=== PATIENT | female | born 1955 | race Caucasian/White ===

== ENCOUNTER → 2021-09-04 | Outpatient (CLI) | payer MEDICARE ==
--- NOTE | 2021-09-10 15:38 | MM ---
Reason for Exam: Additional evaluation requested from prior study. Last mammogram was performed 2 year(s) and 0 month(s) ago. Patient History: Menarche at age 15. Patient has no children. Postmenopausal. 12/12/2019, Benign Mammogram-Guided Core Biopsy on the left side. Risk Values: Frances 5 year model risk: 2.0%. NCI Lifetime model risk: 7.2%. Prior Study Comparison: 08/28/2018 Bilateral MG screening mammo w CAD - 2, Unknown. 11/14/2019 Bilateral MG 3D screening mammo w/cad, [facility]. 12/12/2019 Left MG diagnostic mammo LT wo CAD., [facility]. 06/20/2020 Left MG 3D diag mammo w/cad LT, [facility]. Tissue Density: The breast tissue is heterogeneously dense. This may lower the sensitivity of mammography. Findings: Analyzed By CAD. Scattered benign-appearing round calcifications bilaterally are redemonstrated. Biopsy clip in the left breast is again seen. Overall Assessment: Benign, BI-RAD 2 Management: Screening Mammogram of both breasts in 1 year. A clinical breast exam by your physician is recommended on an annual basis and results should be correlated with mammographic findings. This exam should not preclude additional follow-up of suspicious palpable abnormalities. Electronically signed and approved by: Ethan Lubin M.D. Radiologis
== END | disposition home or self-care (01) ==
LOC: RADMAMWWP 10:37
PROVIDERS: ATTEND Family Medicine
DX: R92.1 Mammographic calcification found on diagnostic imaging of breast (principal); Z78.0 Asymptomatic menopausal state
CPT/HCPCS: 77066; G0279; 77062

== ENCOUNTER → 2022-07-15 | Outpatient (CLI) | payer MEDICARE ==
--- NOTE | 2022-07-15 11:30 | CTL ---
"EXAMINATION TYPE: CT Low Dose Lung DATE OF EXAM ORDERED: 07/15/2022 COMPARISON: None HISTORY: . Low Dose CT Lung Screening CT DLP: 103.[address] CTDI: 2.9 mGy IV CONTRAST USED: None. SCREENING VISIT: First visit COMPARISON: None. TECHNIQUE: Low dose computed tomography scan was performed through the chest at 1 millimeter thick se ctions and reconstructed images in the coronal plane at [address] DIAGNOSTIC QUALITY: Satisfactory FINDINGS: LUNG NODULES: There is a right suprahilar partially spiculated mass present measuring 4.2 cm AP by 3. 1 cm transverse by 3.7 cm craniocaudal. This is felt to reflect malignancy until proven otherwise. Ri ght upper lobe bronchus is narrowed but patent. No additional nodules or masses present. No effusion or consolidative process. Since for volume loss. LUNGS: COPD: Severity: Mild Fibrosis: Severity:None Lymph nodes: Precarinal adenopathy measuring 1.5 cm short axis. 1 cm right hilar lymph node. Calcifie d right hilar lymph node noted as well. Other findings: None RIGHT PLEURAL SPACE: Effusion: None Calcification: None Thickening: None Pneumothorax: None LEFT PLEURAL SPACE: Effusion: None Calcification: None Thickening: None Pneumothorax: None HEART: Heart Size: Mildly enlarged Coronary calcification: Mild Pericardial effusion: None OTHER FINDINGS: Upper abdomen: No significant abnormality Bony thorax: Degenerative changes Supraclavicular region: No significant abnormalityOther: No significant abnormalityI IMPRESSION: 1. Spiculated right suprahilar mass felt to reflect malignancy until proven otherwise. Enlarged preca rinal lymph node. FOLLOW UP CT CHEST RECOMMENDATION: Immediate physician follow up. Correlate with tissue diagnosis. CT LUNG RAD: LUNG RAD CATEGORY 4x very suspicious A [place] level critical message alert has been initiated for Wander Cedillo MD via the [employer] 36 0 | Critical Results System on 07/15/2022 11:28 AM. This message alert has been sent to Wander Cedillo MD via the preferences provided by the clinician for the receipt of Radiology Critical Findings. [facility] ID [id number]."
== END | disposition home or self-care (01) ==
LOC: RADCTMAIN 10:46
PROVIDERS: ATTEND Internal Medicine Hematology & Oncology
DX: Z12.2 Encounter for screening for malignant neoplasm of respiratory organs (principal); F17.210 Nicotine dependence, cigarettes, uncomplicated; R91.8 Other nonspecific abnormal finding of lung field; R59.0 Localized enlarged lymph nodes
CPT/HCPCS: 71271

== ENCOUNTER → 2022-07-24 | Outpatient (CLI) | payer MEDICARE ==
--- NOTE | 2022-07-26 08:18 | PE ---
EXAMINATION TYPE: PET CT fusion skull to thigh DATE OF EXAM: 07/24/2022 COMPARISON: Low-dose lung screening CT July 15, 2022 HISTORY: Recent abnormal CT. Waldenstrom's macroglobulinemia or lymphoma per patient. TECHNIQUE: Following the intravenous administration of 10.6 mCi of F-18 FDG, whole body images are p erformed from the skull base to the midthigh. Images are reviewed on the computer in the coronal, ax ial, and sagittal planes. Reconstructed rotating images are created on independent workstation and r eviewed on the computer. A localization and attenuation correction CT is performed in conjunction w ith the PET scan. Blood glucose level equals 1:30 SCAN: Initial Scan FINDINGS: Mean SUV mediastinum: 0.91 Mean SUV liver: 2.03 SKULL BASE AND NECK: No areas of abnormal hypermetabolic uptake. CHEST, MEDIASTINUM, AND HILAR REGION: Mild underlying emphysematous change is redemonstrated. Persist ent spiculated anterior right hilar mass measuring 4.1 x 2.8 cm axial image 93, max SUV is 7.24. Abnormal hypermetabolic 2.0 x 1.2 cm paracarinal lymph node axial image 93, max SUV is 5.01. No additional areas of abnormal hypermetabolic uptake. ABDOMEN AND PELVIS: No hypermetabolic adrenal masses. Nonspecific bowel uptake. Normal excretion. No definitive suspicious abnormal hypermetabolic uptake. OSSEOUS STRUCTURES: No areas of abnormal hypermetabolic uptake. OTHER CT: There is right subclavian Mediport catheter terminating in SVC redemonstrated. Moderate francis cified plaque bilateral carotid bulb level is seen. Moderate to severe three-vessel coronary artery c alcification redemonstrated. Evidence of old granulomatous disease with calcified right hilar lymph n ode is noted. Uterus is surgically absent. Small fat-containing bilateral inguinal hernias. Scoliosis in the spine is again seen. IMPRESSION: Abnormal hypermetabolic uptake in the 4.1 cm anterior right midlung mass consistent with neoplasm with suspected paracarinal adenopathy. No distal metastatic disease.
== END | disposition home or self-care (01) ==
LOC: RADPETMAIN 14:36
PROVIDERS: ATTEND Internal Medicine Hematology & Oncology
DX: C88.0 Waldenstrom macroglobulinemia (principal); R91.8 Other nonspecific abnormal finding of lung field
CPT/HCPCS: 78815; A9552

== ENCOUNTER 2022-08-05 12:52 | Day surgery (SDC) | payer MEDICARE ==
[~2022-08-05 12:52] MED LIST: LACTATED RINGERS 1,000 ML IV SCH
[2022-08-05 13:47] VITALS: TEMP 97.2
[2022-08-05 13:59] LABS: Glucose,Whole Blood 127 mg/dL (70-110)
[2022-08-05] MEDS ORDERED: DEXAMETHASONE SOD PHOSPHATE 4 MG/ML 1 ML VIAL IVP ONE (14:01)
[2022-08-05] MEDS ORDERED: ONDANSETRON 4 MG/2 ML VIAL IVP ONE (14:01)
[2022-08-05] MEDS ORDERED: ONDANSETRON 4 MG/2 ML VIAL ONE (14:01)
--- NOTE | 2022-08-05 14:13 | CT ---
EXAMINATION TYPE: CT chest wo con DATE OF EXAM: 08/05/2022 COMPARISON: 07/15/22 HISTORY: pre-op bronch CT DLP: [address] of the chest was performed with lung and mediastinal window settings submitted. The la ck of contrast limits evaluation of the vascular, mediastinal and parenchymal structures including th e upper abdomen. LUNGS: Again noted is right suprahilar spiculated mass currently measuring 4.0 x 3.4 x 2.9 cm. No add itional nodules are identified. There is no evidence of pleural effusion or volume loss. MEDIASTINUM/ULI: Thoracic aorta is of normal caliber with limited evaluation given lack of contrast . The heart is not enlarged. No evidence for mediastinal mass. Enlarged right tracheal bronchial ad enopathy measuring 1.5 cm. Additional right paratracheal lymph node measuring 1.2 cm. Calcified right hilar lymph nodes seen. UPPER ABDOMEN: No significant abnormality is seen. OTHER: No significant other abnormality. IMPRESSION: 1. Spiculated mass right suprahilar region with mediastinal adenopathy.
[2022-08-05] MEDS ORDERED: MIDAZOLAM 2 MG/2 ML VIAL ONE (14:41)
[2022-08-05] MEDS ORDERED: SUGAMMADEX SODIUM 200 MG/2 ML SDV IV ONE (14:41)
[2022-08-05] MEDS ORDERED: fentaNYL (PF) 50 MCG/ML 2 ML AMP ONE (14:41)
[2022-08-05] MEDS ORDERED: PHENYLEPHRINE-0.9% NACL SYG 1,000 MCG/10 ML SYRINGE ONE (14:41)
[2022-08-05] MEDS ORDERED: ROCURONIUM 10 MG/ML (5 ML VIAL) IV ONE (14:41)
[2022-08-05] MEDS ORDERED: GLYCOPYRROLATE 0.2 MG/ML 2 ML VIAL ONE (14:41)
[2022-08-05] MEDS ORDERED: NEOSTIGMINE 1 MG/ML 10 ML VIAL ONE (14:41)
[2022-08-05] MEDS ORDERED: SUCCINYLCHOLINE CHLORIDE 200 MG/10 ML VIAL IV ONE (14:41)
[2022-08-05] MEDS ORDERED: LIDOCAINE 2% INJ 20 MG/ML (2 ML VIAL) ONE (14:41)
[2022-08-05] MEDS ORDERED: PROPOFOL 10 MG/ML 20 ML VIAL IV ONE (14:41)
[2022-08-05] MEDS ORDERED: ePHEDrine 50 MG/ML 1 ML VIAL ONE (14:41)
--- NOTE | 2022-08-05 16:43 | P.PCN ---
Date of Procedure: 08/05/22 Operative Findings: Preoperative Diagnosis: Right upper lobe mass Mediastinal lymphadenopathy Postoperative Diagnosis: Right upper lobe mass Mediastinal lymphadenopathy Procedure(s) Performed: Flexible bronchoscopy Robotic-assisted bronchoscopy and addition to radial ultrasound evaluation of the lung mass Robotic-assisted test monitor needle aspirate, transbronchial biopsies, transbronchial brushing of the right upper lobe mass in addition to a bronchioloalveolar lavage Endobronchial ultrasound Endobronchial ultrasound-guided transbronchial needle aspirate of station 4R - anterior tracheal lymph nodes Anesthesia: MARAHA Surgeon: Lisa Mcclure Estimated Blood Loss (ml): 0 Pathology: other Condition: stable Disposition: same day Operative Findings: A physical exam was performed. Informed consent was obtained from the patient after explaining all the risks (pneumothorax, life threatening bleeding, infection and adverse effects due to medications), benefits and alternatives to the procedure which the patient appeared to understand and so stated. The patient was connected to the monitoring devices. General anesthesia was induced and the patient was intubated by anesthesia. A final timeout was performed and the procedure confirmed by the attending staff bronchoscopist. The bronchoscope was inserted and the airway examined. The flexible bronchoscope was removed and the robotic bronchoscope was inserted. Registration was completed. I next guided the robotic bronchoscope using the navigation system into the right upper lobe anterior and apical segment. Once in proper position, the bronchoscope was frozen. The radial EBUS probe was placed through the bronchoscope and confirmed abnormal u/s images vs normal lung. A needle was placed through the working channel and under fluoroscopic guidance, we sampled the area thought to have the mass twice. We then used a cloud biopsy pattern with ultrasound confirmation for 6 additional passes with the needle. U/S evaluation was then used to reconfirm location. Forceps were next introduced through working channel and extended the appropriate distance and 3-4 transbronchial biopsies were performed using fluoroscopic guidance. The u/s probe was then reinserted to confirm location. When confirmed this process was repeated for a total of 3-4 transbronchial biopsies. After reassessment with EBUS, a brush was placed through the extendable working channel for 1 pass with fluoroscopic guidance. U/S evaluation was then used to confirm location. 40ml of saline was then instilled into the area of the lesion. The robotic bronchoscope was removed and the airway inspected with a flexible bronchoscope and 10 ml of effluent from the BAL was collected. The flexible bronchoscope was removed and the EBUS-TBNA bronchoscope was used to intubate the pateint through the ETT. An ultrasound examination identified all major landmarks was completed.. The EBUS-TBNA scope was used to evaluate station 4R /anterior tracheal lymph node. The lymph node was identified via ultrasound and the shortest diameter was measured to be 11 x 15 mm. The corresponding available CT scan measurement was compared to EBUS image. The needle was then inserted and 4 passes were taken under direct ultrasonographic visualization. Each pass was maintained with good suction. The patient was then extubated with the EBUS-TBNA bronchoscope and intubated with an Olympus IT bronchoscope without difficutly. The airways were inspected and cleared of secretions and blood. Fluoroscopic check for pneumothorax was negative upon completion of the procedure. There was 0 ml blood loss with the procedure. FINDINGS: 1.The airways appeared normal 2 Successful navigation, ultrasonographic identification, and biopsies of right lower lobe mass 3.The EBUS view was (Concentric/Eccentric)}. - Stations sampled: 4R /anterior tracheal RECOMMENDATIONS: Await pathology and cytology results The referring physician will be alerted to the results when available. The patient was advised to follow up with the referring physician with the biopsy results Patient will be called with results.
[2022-08-05] MEDS ORDERED: LIDOCAINE 2% SYG (PF) 100 MG/5 ML MISCELLANE ONE (16:50)
[2022-08-05] MEDS ORDERED: ALBUTEROL NEBULIZED 2.5 MG/3 ML INHALATION ONE (16:50)
[2022-08-05 17:38] VITALS: RESP 16
[2022-08-05 18:27] VITALS: BP 100/64; PULSE 78
--- NOTE | 2022-08-06 05:05 | XR ---
EXAMINATION TYPE: XR chest 1V DATE OF EXAM: 08/05/2022 COMPARISON: Chest CT earlier today HISTORY: Post bronchoscopy and biopsy. TECHNIQUE: Single AP portable frontal upright view of the chest is obtained. FINDINGS: Right subclavian Mediport catheter is redemonstrated. There is background mild chronic emp hysematous change with right suprahilar spiculated 4.1 cm mass redemonstrated. No pneumothorax seen a fter bronchoscopy and biopsy. The cardiac silhouette size is mildly enlarged. The osseous structur es are intact. IMPRESSION: As above.
--- NOTE | 2022-08-06 06:16 | FL ---
EXAMINATION TYPE: FL bronchoscopy DATE OF EXAM: 08/05/2022 CLINICAL HISTORY: Right lung mass TECHNIQUE: Fluoroscopy. COMPARISON: None. FINDINGS: Fluoroscopic guidance was provided during bronchoscopy with sampling procedure performed bobby Mcclure. A total of 8 minutes 8 seconds of fluoroscopic time was utilized during the procedur e and four spot images was acquired. Total dose area product (DAP) in uGy*m?, mGy*cm? (or similar: 3 2.86. IMPRESSION: As Above.
== END 2022-08-05 18:57 | disposition home or self-care (01) ==
LOC: ORWHC2ENDO 12:52
PROVIDERS: ATTEND Internal Medicine Critical Care Medicine
DX: C34.11 Malignant neoplasm of upper lobe, right bronchus or lung (principal); I10 Essential (primary) hypertension; E78.5 Hyperlipidemia, unspecified; I48.91 Unspecified atrial fibrillation; E11.9 Type 2 diabetes mellitus without complications; Z79.899 Other long term (current) drug therapy; Z79.84 Long term (current) use of oral hypoglycemic drugs; Z79.01 Long term (current) use of anticoagulants
CPT/HCPCS: 88108; 88305; 71045; 71250; 31629; 31625; 31624; 31652; J2250; J0330; J1100; J2710; J2405; J2001 ×2; J3010; J2370; J2704

== ENCOUNTER → 2022-08-28 | Outpatient (CLI) | payer MEDICARE ==
--- NOTE | 2022-08-29 06:32 | MR ---
EXAMINATION TYPE: MR brain wo/w con DATE OF EXAM: 08/28/2022 COMPARISON: NONE HISTORY: Hx of Bone and newly diagnosed lung cancer upper lobe. TECHNIQUE: Multiplanar, multisequence images of the brain and brainstem is performed without and with IV contras t, utilizing 8 mL intravenous Gadavist . FINDINGS: Diffusion weighted images demonstrate no evidence of a recent infarct or other diffusion ab normality. Mild ventricular and sulcal prominence. There are scattered foci of T2 hyperintensity seen throughout the white matter bilaterally. Approximately 60-80 scattered lesions are seen. Lesions are nonspecific in appearance and distribution. Midline structures demonstrate normal morphology. The craniocervical junction appears within normal limits. Post contrast images demonstrate no suspicious enhancing intraparenchymal masses. Right-side d vascular anomaly axial images 25 through 29 is present. This is best seen on T2 Star weighted imagi ng. Possible AVM. The dural venous sinuses appear patent. The visualized sinuses are clear and the gl obes are intact. Increased fluid signal bilateral mastoid air cells. IMPRESSION: 1. No abnormal enhancing intraparenchymal mass to suggest metastatic disease to the brain. 2. Background mild diffuse cerebral atrophy and moderate chronic small vessel ischemic change. Right- sided vascular anomaly possibly AVM. 3. Increased fluid signal bilateral mastoid air cells raises concern for bilateral mastoiditis, corre late clinically.
== END | disposition home or self-care (01) ==
LOC: RADMRIMAIN 14:23
PROVIDERS: ATTEND Radiology Radiation Oncology
DX: C34.11 Malignant neoplasm of upper lobe, right bronchus or lung (principal); G93.89 Other specified disorders of brain; I67.82 Cerebral ischemia
CPT/HCPCS: 70553; A9585

== ENCOUNTER → 2022-09-14 | Outpatient (CLI) | payer MEDICARE ==
--- NOTE | 2022-09-14 18:56 | MR ---
EXAMINATION TYPE: MR angio neck wo/w con DATE OF EXAM: 09/14/2022 6:21 PM CLINICAL INDICATION:Female, 67 years old with history of C34.11; Follow-up to MRI Brain 08-28-2022 COMPARISON: Brain MRI 08/28/2022. TECHNIQUE: Multiplanar, multi-sequence imaging as well as [id number] and phase contrast imaging w as performed extracranial vasculature of the neck. 2-D and 3-D [id number]-[id number] imaging. 3-D reformatte d images and maximum intensity projection reformatted images were submitted for evaluation. IV Contrast: 8 cc Gadavist FINDINGS: Extensive motion artifact limits evaluation. RIGHT CAROTID SYSTEM: The common carotid artery is patent. The carotid bifurcations that she no evide nce for hemodynamically significant stenosis. The internal carotid arteries patent. LEFT CAROTID SYSTEM: The common carotid artery is patent. The carotid bifurcations that she no evide nce for hemodynamically significant stenosis. The internal carotid arteries patent. The origins of the great vessels and vertebral arteries appear unremarkable. The vertebral arteries are codominant. IMPRESSIONS: 1. No evidence of significant stenosis at the carotid bifurcations. The carotid and vertebral arterie s are patent. 2. No evidence aneurysm.
== END | disposition home or self-care (01) ==
LOC: RADMRIMAIN 16:51
PROVIDERS: ATTEND Radiology Radiation Oncology
DX: C34.11 Malignant neoplasm of upper lobe, right bronchus or lung (principal)
CPT/HCPCS: 70549; A9585

== ENCOUNTER → 2022-11-12 | Outpatient (CLI) | payer MEDICARE ==
[2022-11-12 10:20] LABS: African American GFR (CKD) 71 (>60 ml/min/1.73 sqM); Blood Urea Nitrogen 16 mg/dL (7-17); Non-African American GFR(CKD) 61 (>60 ml/min/1.73 sqM)
--- NOTE | 2022-11-12 13:16 | CT ---
EXAMINATION TYPE: CT chest w con DATE OF EXAM: 11/12/2022 COMPARISON: 08/05/2022, 07/24/2022 at scan HISTORY: Malignant neoplasm of upper lobe, right bronchus or lung CT DLP: 287.2 mGycm Automated exposure control for dose reduction was used. TECHNIQUE: CT scan of the chest is performed with IV Contrast, patient injected with 100 ml mL of Isovue 300. M IP Images are created on CT scanner and reviewed. 3D reconstructed images are created on an [employer] workstation and reviewed. FINDINGS: LUNGS: There is a right upper lobe mass measuring 3.7 x 3.3 x 2.6 cm and previously measuring 4 x 3.4 x 2.9 cm. There is a 2 mm subpleural right lower lobe pulmonary nodule too small to characterize axial image 46 . Retrospectively stable. There is apical pleural thickening. Mild emphysematous changes. No new sizable pulmonary nodules. No consolidative pneumonia. No overt failure. MEDIASTINUM: The heart is enlarged. Atherosclerotic change of aorta appears normal caliber. There is pathologic adenopathy in the pretracheal space measuring 1.5 x 2.2 x 6 cm and previously measured 1. 2 x 2.1 cm. There is a Mediport catheter. Small pericardial effusion. Coronary artery calcifications are OTHER: Multilevel hypertrophic and degenerative changes spine. Small hiatal hernia. A sub-5 mm right thyroid nodule too small to characterize. Indeterminate upper pole left renal lesion measuring 4 mm stable prior PET scan. May represent hemorrhagic or proteinaceous cyst given its was hyperdense on no ncontrast head CT. There is a tiny gallstone. Nonobstructing 3 mm lower pole left renal calculus. IMPRESSION: 1. Right upper lobe mass measures 3.7 x 3.3 x 3.1 centimeters and previously measured 4 x 3.4 x 2.9 c m. 2. Pathologic pretracheal adenopathy measures 1.5 x 2.2 x 2.6 and previously measured 1.2 x 2.1 cm. 3. No new areas of pathologic adenopathy or pulmonary mass. 4. Small pericardial effusion. 5. Small hiatal hernia with mild distal wall esophageal thickening correlate for reflux esophagitis. 6. Tiny gallstone. 7. There is a too small to characterize upper pole hyperdense left renal lesion. Recommend continued monitoring. Post likely Bosniak classification 2 high proteinaceous or hemorrhagic cyst. 8. Nonobstructing 3 mm lower pole left renal calculus.
== END | disposition home or self-care (01) ==
LOC: RADCTMAIN 09:37
PROVIDERS: ATTEND Internal Medicine Hematology & Oncology
DX: C34.11 Malignant neoplasm of upper lobe, right bronchus or lung (principal); C88.0 Waldenstrom macroglobulinemia; E11.9 Type 2 diabetes mellitus without complications; N20.0 Calculus of kidney; I31.39 Other pericardial effusion (noninflammatory); K44.9 Diaphragmatic hernia without obstruction or gangrene; K80.20 Calculus of gallbladder without cholecystitis without obstruction; Z71.3 Dietary counseling and surveillance
CPT/HCPCS: 82565; 84520; 71260; 36415; Q9967

== ENCOUNTER → 2022-12-14 | Outpatient (CLI) | payer MEDICARE ==
--- NOTE | 2022-12-15 08:35 | MM ---
Reason for Exam: Screening (asymptomatic). Last mammogram was performed 1 year(s) and 4 month(s) ago. Patient History: Menarche at age 15. Patient has no children. Postmenopausal. 12/12/2019, Benign Mammogram-Guided Core Biopsy on the left side. Risk Values: Frances 5 year model risk: 2.0%. NCI Lifetime model risk: 6.9%. Prior Study Comparison: 12/12/2019 Left MG diagnostic mammo LT wo CAD., [facility]. 06/20/2020 Left MG 3D diag mammo w/cad LT, [facility]. 09/04/2021 Bilateral MG 3D diag mammo w/cad SEAN, [facility]. Tissue Density: The breast tissue is heterogeneously dense. This may lower the sensitivity of mammography. Findings: Analyzed By CAD. There is no suspicious group of microcalcifications or new suspicious mass in either breast. Benign calcifications within both breasts. Biopsy clip within the left breast. Overall Assessment: Benign, BI-RAD 2 Management: Screening Mammogram of both breasts in 1 year. A clinical breast exam by your physician is recommended on an annual basis and results should be correlated with mammographic findings. Note on Frances scores and lifetime risk: 1. A Frances score greater than 3% is considered moderate risk. If this is the case, consider specialist referral to assess eligibility for a risk reducing agent. If overall lifetime risk for the development of breast cancer is 20% or higher, the patient may qualify for future screening with alternating mammogram and breast MRI. Electronically signed and approved by: Richmond Mcintosh D.O.
== END | disposition home or self-care (01) ==
LOC: RADMAMWWP 07:42
PROVIDERS: ATTEND Internal Medicine Hematology & Oncology
DX: Z12.31 Encounter for screening mammogram for malignant neoplasm of breast (principal); Z78.0 Asymptomatic menopausal state
CPT/HCPCS: 77063; 77067

== ENCOUNTER → 2022-12-20 | Outpatient (CLI) | payer MEDICARE ==
--- NOTE | 2022-12-20 08:07 | US ---
EXAMINATION TYPE: US thyroid st tissue head/neck DATE OF EXAM: 12/20/2022 COMPARISON: NONE CLINICAL INDICATION: Female, 67 years old with history of C34.11 lung ca, R94.6 abn labs; abn labs GLAND SIZE: Right Lobe: 4.7 x 1.3 x 2.2 cm Overall Parenchyma: homogenous Left Lobe: 4.0 x 1.5 x 2.1 cm Overall Parenchyma: homogeneous Isthmus Thickness: 0.3 cm NODULES RIGHT: # of nodules measured on right: multiple subcentimeter, measured largest 1. 0.6 X 0.8 x 0.5 cm, lower , cystic or almost completely cystic, anechoic nodule, which is wider than tall, with smooth margins, without echogenic foci. Prior size: SALES DEMONSTRATOR ISTHMUS: # of nodules measured in the isthmus: 0 Bilateral neck scanned, no evidence of lymphadenopathy. IMPRESSION: Nonspecific subcentimeter nodularity.
== END | disposition home or self-care (01) ==
LOC: RADUSWWP 07:24
PROVIDERS: ATTEND Internal Medicine Hematology & Oncology
DX: C34.11 Malignant neoplasm of upper lobe, right bronchus or lung (principal); R94.6 Abnormal results of thyroid function studies
CPT/HCPCS: 76536

== ENCOUNTER → 2023-02-04 | Outpatient (CLI) | payer MEDICARE ==
--- NOTE | 2023-02-04 10:27 | MR ---
EXAMINATION TYPE: MR angio head wo con DATE OF EXAM: 02/04/2023 10:15 AM CLINICAL INDICATION:Female, 67 years old with history of C34.11,C77.1; PHH, Hx bone and lung cancer, Evaluate for AVM, Abnormal MRI September 2022 COMPARISON: 09/14/2022. MRI 08/28/2022. Technical: 3-D [id number] Axial with MIP reconstruction created on a separate workstation.. IV Contrast: None Findings: Vertebral arteries: The vertebral arteries are patent. Vertebral arteries are: Codominant. Basilar artery: The basilar artery is intact. The basilar artery bifurcation is normal. Internal Carotid arteries: The cervical, petrous, cavernous and supraclinoid segments are normal. INOCENCIO: Patent with no evidence of aneurysm. ACOM: Present without evidence of aneurysm. MCA: Patent with no evidence of aneurysm. 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 PCOM: Hypoplastic left normal right. Developmental venous anomaly seen on susceptibility weighted imaging on 08/28/2022 has normal arterial phase vessel leading to this region. IMPRESSION: 1. No evidence of aneurysm or significant stenosis. 2. Prior MRI brain does demonstrate evidence for developmental venous anomaly within the right front al lobe near the basal ganglia. No finding on today's exam correlates with the finding likely due to phase of contrast.
== END | disposition home or self-care (01) ==
LOC: RADMRIMAIN 09:20
PROVIDERS: ATTEND Radiology Radiation Oncology
DX: C77.1 Secondary and unspecified malignant neoplasm of intrathoracic lymph nodes (principal); C34.11 Malignant neoplasm of upper lobe, right bronchus or lung
CPT/HCPCS: 70544

== ENCOUNTER → 2023-02-18 | Outpatient (CLI) | payer MEDICARE ==
--- NOTE | 2023-02-19 09:29 | PE ---
EXAMINATION TYPE: PET CT fusion skull to thigh DATE OF EXAM: 02/18/2023 CLINICAL INDICATION:Female, 67 years old with history of C34.11 LUNG CANCER; TECHNIQUE: Following the intravenous administration of 11.58 mCi of F-18 FDG, whole body images are performed from the skull base to the midthigh. Images are reviewed on the computer in the coronal, axial, and sagittal planes. Reconstructed rotating images are created on independent workstation and reviewed on the computer. A non-contrast CT is performed in conjunction with the PET scan. Glucose level 98 mg/dL CT DLP: 437 mGycm, Automated exposure control for dose reduction was used. COMPARISON: CT 11/12/2022, PET/CT 07/24/2022, FINDINGS: Mediastinal SUV mean is 1.5. Hepatic parenchyma SUV mean is 1.8. SKULL BASE AND NECK: No suspicious radiotracer activity. CHEST, MEDIASTINUM, AND HILAR REGION: * Right anterior midlung mass now measuring 3.3 x 2.2 cm. Max SUV 9.8, previously 7.2. FDG activity is patchy and along the periphery predominantly on today's exam. * Right low paratracheal lymph node max SUV 6.4, previously 5.0 measuring 14 mm in short axis which may be minimally increased in volume. * Prevascular space lymph nodes with increased metabolic activity max SUV 8.1 measuring 8 mm and mor e right lateral max SUV 10.6 measuring 8 mm. * New Right upper lung pulmonary nodule Max SUV 1.6 measuring 5 mm. ABDOMEN AND PELVIS: No suspicious radiotracer activity. MUSCULOSKELETAL STRUCTURES: No suspicious radiotracer activity. OTHER CT: There is right subclavian Mediport catheter terminating in SVC redemonstrated. Moderate francis cified plaque bilateral carotid bulb level is seen. Moderate to severe three-vessel coronary artery c alcification redemonstrated. Evidence of old granulomatous disease with calcified right hilar lymph n ode is noted. Uterus is surgically absent. Small fat-containing bilateral inguinal hernias. Scoliosis in the spine is again seen. IMPRESSION: Progression of disease increasing FDG activity of the right upper lung mass now demonstrating patchy FDG uptake that was more solid and uniform previously. The metastatic lymph node remains present and may be minimally increased in volume compared to prior. The FDG activity within the mediastinal lymph node has also increased. There are new prevascular space lymph nodes with increased metabolic activi ty as well as a new FDG avid right upper lung pulmonary nodule.
== END | disposition home or self-care (01) ==
LOC: RADPETMAIN 10:54
PROVIDERS: ATTEND Internal Medicine Hematology & Oncology
DX: C34.11 Malignant neoplasm of upper lobe, right bronchus or lung (principal); R91.8 Other nonspecific abnormal finding of lung field
CPT/HCPCS: 78815; A9552

== ENCOUNTER → 2023-05-26 | Outpatient (CLI) | payer MEDICARE ==
--- NOTE | 2023-05-29 13:34 | PE ---
EXAMINATION TYPE: PET CT fusion skull to thigh DATE OF EXAM: 05/26/2023 CLINICAL INDICATION:Female, 67 years old with history of C34.11 LUNG CANCER; TECHNIQUE: Following the intravenous administration of 12.4 mCi of F-18 FDG, whole body images are performed from the skull base to the midthigh. Images are reviewed on the computer in the coronal, a xial, and sagittal planes. Reconstructed rotating images are created on independent workstation and reviewed on the computer. A non-contrast CT is performed in conjunction with the PET scan. Glucose level 107 mg/dL CT DLP: 292 mGycm, Automated exposure control for dose reduction was used. COMPARISON: CT 11/12/2022, PET/CT 02/18/2023, FINDINGS: Mediastinal SUV mean is 1.9. Hepatic parenchyma SUV mean is 2.3. SKULL BASE AND NECK: No suspicious radiotracer activity. CHEST, MEDIASTINUM, AND HILAR REGION: * Right anterior midlung mass now measuring 3.3 x 2.2 cm. Max SUV 10.7, previously 10.7. * Right low paratracheal lymph node max SUV 9.4, previously 7.0 , previously 5.0 and measuring 14 mm in short axis which is similar prior. * There are now at least 3 lymph nodes which are demonstrating increased metabolic activity in the p revascular space largest in the right side of the prevascular space measuring up to 11 mm, previously 8 mm with max SUV 2.4, previously 14.6 to left prevascular space lymph nodes max SUV 8.9, previously 11.0. * Increasing right upper lung pulmonary nodule Max SUV 7.0, previously 1.6 measuring 11 mm, previous ly 5 mm. * Right lower lung lateral pulmonary nodule Max SUV 2.3 not definitively seen on prior. * Major fissure pleural thickening with increased metabolic activity injuring up to 9 mm and max SUV 5.0. Previously 1.8. * Presumably physiologic uptake within the left axilla lymph nodes * CBD 2.0. ABDOMEN AND PELVIS: No suspicious radiotracer activity. MUSCULOSKELETAL STRUCTURES: No suspicious radiotracer activity. OTHER CT: There is right subclavian Mediport catheter terminating in SVC redemonstrated. Moderate francis cified plaque bilateral carotid bulb level is seen. Moderate to severe three-vessel coronary artery c alcification redemonstrated. Evidence of old granulomatous disease with calcified right hilar lymph n ode is noted. Uterus is surgically absent. Small fat-containing bilateral inguinal hernias. Scoliosis in the spine is again seen. IMPRESSION: * Progression of disease increasing FDG activity and size of the right upper lung pulmonary nodule a nd right major fissure pulmonary nodule. * Stable FDG activity within the right anterior hilum pulmonary mass. * Increasing number of FDG avid lymph nodes in the prevascular space of the mediastinum.
== END | disposition home or self-care (01) ==
LOC: RADPETMAIN 08:56
PROVIDERS: ATTEND Internal Medicine Hematology & Oncology
DX: C34.11 Malignant neoplasm of upper lobe, right bronchus or lung (principal); R91.8 Other nonspecific abnormal finding of lung field
CPT/HCPCS: 78815; A9552

== ENCOUNTER → 2023-07-20 | Outpatient (CLI) | payer MEDICARE ==
[2023-07-20 14:25] LABS: ALT 21 U/L (4-34); AST 16 U/L (14-36); African American GFR (CKD) 85 (>60 ml/min/1.73 sqM); Albumin 4.1 g/dL (3.5-5.0); Albumin/Globulin Ratio 1.1; Alkaline Phosphatase 107 U/L (38-126); Anion Gap 10 mmol/L; Blood Urea Nitrogen 36 mg/dL (7-17); Calcium 10.3 mg/dL (8.4-10.2); Carbon Dioxide 21 mmol/L (22-30); Chloride 104 mmol/L (98-107); Globulin 3.7 g/dL; Glucose 155 mg/dL (74-99); Magnesium 1.8 mg/dL (1.6-2.3); Non-African American GFR(CKD) 74 (>60 ml/min/1.73 sqM); Potassium 5.2 mmol/L (3.5-5.1); Sodium 135 mmol/L (137-145); Total Bilirubin 0.6 mg/dL (0.2-1.3); Total Protein 7.8 g/dL (6.3-8.2)
== END | disposition home or self-care (01) ==
LOC: LABWHC1 14:07
PROVIDERS: ATTEND Nurse Practitioner Family
DX: C34.11 Malignant neoplasm of upper lobe, right bronchus or lung (principal); C88.0 Waldenstrom macroglobulinemia; I10 Essential (primary) hypertension; I48.91 Unspecified atrial fibrillation; E11.9 Type 2 diabetes mellitus without complications; R94.31 Abnormal electrocardiogram [ECG] [EKG]
CPT/HCPCS: 36415; 80053; 83735

== ENCOUNTER → 2023-08-28 | Outpatient (CLI) | payer MEDICARE ==
--- NOTE | 2023-08-30 09:45 | PE ---
EXAMINATION TYPE: PET CT fusion skull to thigh DATE OF EXAM: 08/28/2023 CLINICAL INDICATION:Female, 68 years old with history of C34.11 Lung CA; TECHNIQUE: Following the intravenous administration of 12.74 mCi of F-18 FDG, whole body images are performed from the skull base to the midthigh. Images are reviewed on the computer in the coronal, axial, and sagittal planes. Reconstructed rotating images are created on independent workstation and reviewed on the computer. A non-contrast CT is performed in conjunction with the PET scan. Glucose level 125 mg/dL CT DLP: 363.94 mGycm, Automated exposure control for dose reduction was used. COMPARISON: CT None, PET/CT 05/26/2023 FINDINGS: Mediastinal SUV mean is 1.6. Hepatic parenchyma SUV mean is 2.2 SKULL BASE AND NECK: No suspicious radiotracer activity. CHEST, MEDIASTINUM, AND HILAR REGION: * Right anterior midlung mass now measuring similar at 3.3 x 2.2 cm. Given differences in measuring technique. Max SUV 6.2, previously 10.7, 10.7. * Right low paratracheal lymph node max SUV 3.0, previously 9.4, 7.0 , 5.0 measures 10 mm in short a xis. * There are now at least 3 lymph nodes which are demonstrating increased metabolic activity in the p revascular space largest in the right side of the prevascular space measuring up to 11 mm, previously 8 mm with max SUV 3.0, previously 10.4, and on the left anteriorly Max SUV 2.1 previously 5.8, more posterior on the left max SUV 2.3 previously 8.9. * Increasing right upper lung pulmonary nodule Max SUV 2.6, previously 7.0, 1.6 measuring 11 mm. Sim ilar to prior * Right lower lung lateral pulmonary nodule Max SUV 0.8, previously 1.5. * Major fissure pleural thickening with increased metabolic activity injuring up to 9 mm and max SUV 2.3 previously 5.0. 1.8. * Pulmonary nodule on the right just above the diaphragm max SUV 2.1, previously 2.1 * Presumably physiologic uptake within the left axilla lymph nodes ABDOMEN AND PELVIS: No suspicious radiotracer activity. Diffuse physiologic uptake in the lower abdom en/pelvis bowel limits evaluation. MUSCULOSKELETAL STRUCTURES: No suspicious radiotracer activity. OTHER CT: There is right subclavian Mediport catheter terminating in SVC redemonstrated. Moderate francis cified plaque bilateral carotid bulb level is seen. Moderate to severe three-vessel coronary artery c alcification redemonstrated. Evidence of old granulomatous disease with calcified right hilar lymph n ode is noted. Uterus is surgically absent. Small fat-containing bilateral inguinal hernias. Scoliosis in the spine is again seen. IMPRESSION: * Positive response to therapy with decrease in metabolic activity primary malignancy or metastatic disease.
== END | disposition home or self-care (01) ==
LOC: RADPETMAIN 08:23
PROVIDERS: ATTEND Internal Medicine Hematology & Oncology
DX: C34.11 Malignant neoplasm of upper lobe, right bronchus or lung (principal)
CPT/HCPCS: 78815; A9552

== ENCOUNTER → 2024-01-26 | Outpatient (CLI) | payer MEDICARE ==
--- NOTE | 2024-01-27 07:52 | MM ---
Reason for Exam: Screening (asymptomatic). Last mammogram was performed 1 year(s) and 1 month(s) ago. Patient History: Menarche at age 15. Patient has no children. Postmenopausal. 12/12/2019, Benign Mammogram-Guided Core Biopsy on the left side. Risk Values: Frances 5 year model risk: 2.0%. NCI Lifetime model risk: 6.6%. Prior Study Comparison: 06/20/2020 Left MG 3D diag mammo w/cad , [facility]. 09/04/2021 Bilateral MG 3D diag mammo w/cad [facility], [facility]. 12/14/2022 Bilateral MG 3D screening mammo w/cad, [facility]. Tissue Density: The breasts are heterogeneously dense, which may obscure small masses. Findings: Analyzed By CAD. Left breast biopsy clip. Right breast: There is no suspicious group of microcalcifications or new suspicious mass. Benign-appearing calcifications right breast. Left breast: There is no suspicious group of microcalcifications or new suspicious mass. Benign-appearing calcifications left breast. Overall Assessment: Benign, BI-RAD 2 Management: Screening Mammogram of both breasts in [address] [facility] will attempt to contact patient to return for supplemental views and ultrasound if indicated. Patient should continue monthly self-breast exams. A clinical breast exam by your physician is recommended on an annual basis. This exam should not preclude additional follow-up of suspicious palpable abnormalities. Note on Frances scores and lifetime risk: 1. A Frances score greater than 3% is considered moderate risk. If this is the case, consider specialist referral to assess eligibility for a risk reducing agent. 2. If overall lifetime risk for the development of breast cancer is 20% or higher, the patient may qualify for future screening with alternating mammogram and breast MRI. [facility], , 01/27/2024 7:50 AM. Electronically signed and approved by: Royal Faria DO
== END | disposition home or self-care (01) ==
LOC: RADMAMWWP 12:14
PROVIDERS: ATTEND Internal Medicine Hematology & Oncology
CPT/HCPCS: 77063; 77067

== ENCOUNTER → 2024-02-17 | Outpatient (CLI) | payer MEDICARE ==
[2024-02-17 10:19] LABS: African American GFR (CKD) >90 (>60 ml/min/1.73 sqM); Blood Urea Nitrogen 11 mg/dL (7-17); Non-African American GFR(CKD) 80 (>60 ml/min/1.73 sqM)
--- NOTE | 2024-02-17 10:55 | CT ---
EXAMINATION TYPE: CT chest w con CT DLP: 152.3 mGycm, Automated exposure control for dose reduction was used. DATE OF EXAM: 02/17/2024 10:33 AM COMPARISON: PET/CT 08/28/2023, 05/26/2023, 02/18/2023, CT chest 11/12/2022 CLINICAL INDICATION:Female, 68 years old with history of C34.11 MALIGNANT NEOPLASM OF UPPER LOBE, RIGHT BRO; PHH, LUNG CA TECHNIQUE: Multiple axial images were obtained through the chest following the administration of 100 cc of Isovue 300. . Coronal and sagittal reformats reviewed. FINDINGS: LUNGS/ PLEURA: No effusion or pneumothorax. No focal consolidation. Multiple new and enlarging metas tatic pulmonary nodule/masses when compared to prior PET/CT. Enlarging dominant right perihilar mass measuring 5.2 x 3.6 cm (series 4, image 22), previously measured 3.5 x 2.7 cm. This encases the right upper lobe pulmonary arteries and bronchus. There is examples include a left lower lobe 2.9 x 2.3 cm metastatic pulmonary nodule (series 4, image 50), previously measured up to 0.9 cm. Right lower lobe 3.9 x 2.9 cm metastatic pulmonary mass (series 4, image 47), previously measured up to 1.2 cm. Poste rior right upper lobe 2.1 x 1.7 cm metastatic pulmonary nodule (series 4, image 18), previously measu red 1.1 cm. AIRWAY: Patent and unremarkable.. HEART: Size within normal limits. Small to moderate sized pericardial effusion. MEDIASTINUM: Increased size of right paratracheal metastatic lymph node measuring 1.6 cm, previously 1.0 cm. Enlarging left prevascular space 1.7 cm metastatic lymph node, previously 1.1 cm. VASCULATURE: No aortic aneurysm. Right anterior chest wall Mediport catheter distal tip terminating at the superior cavoatrial junction. Mild atherosclerotic calcification of the aorta and its branches . MUSCULOSKELETAL: No acute osseous abnormalities. No aggressive osseous lesion. SOFT TISSUES/LYMPH NODES: Unremarkable. LOWER NECK: No significant findings. UPPER ABDOMEN: No significant findings. IMPRESSION: 1. Progression of disease with multiple new and enlarging metastatic pulmonary nodules/masses and en larging mediastinal adenopathy. 2. Increasing small to moderate size pericardial effusion. [facility], , 02/17/2024 10:53 AM
== END | disposition home or self-care (01) ==
LOC: RADCTMAIN 09:21
PROVIDERS: ATTEND Internal Medicine Hematology & Oncology
DX: C34.11 Malignant neoplasm of upper lobe, right bronchus or lung (principal); R91.8 Other nonspecific abnormal finding of lung field; I31.39 Other pericardial effusion (noninflammatory)
CPT/HCPCS: 82565; 84520; 71260; 36415; Q9967

== ENCOUNTER 2024-06-22 15:00 | Inpatient (IN) | payer MEDICARE ==
--- NOTE | 2024-06-22 15:16 | ED ---
Weakness HPI - General Source: patient, RN notes reviewed Mode of arrival: wheelchair Limitations: no limitations <Eloina Spear - Last Filed: 06/22/24 15:15> - General Source: patient, family, RN notes reviewed Limitations: no limitations <Fahad French - Last Filed: 06/22/24 18:45> - General Chief complaint: Weakness Stated complaint: weak Time Seen by Provider: 06/22/24 15:16 - History of Present Illness Initial comments: Quick note: 69-year-old female presented to the ER for evaluation of weakness. Patient states she is currently on chemotherapy for lung cancer. She was following up with Dr. Cedillo. She reports since last Tuesday she has felt extremely weak and tired. (Eloina Spear) Patient is a 69-year-old female present to the emergency department with generalized weakness. Symptoms progressed over the past day or so. Patient has decreased appetite for the last couple of weeks. Today patient is unable to walk or even help with transfer. Patient does have history of lung cancer and is on chemotherapy. Patient states she does feel slightly confused. (Fahad French) - Related Data Home Medications Medication Instructions Recorded Confirmed Atorvastatin [Lipitor] 10 mg PO HS 08/03/22 05/11/24 Cholecalciferol [Vitamin D3 (25 50 mcg PO DAILY 08/03/22 05/11/24 Mcg = 1000 Iu)] Metoprolol Succinate (ER) [Toprol 50 mg PO DAILY 08/03/22 05/11/24 Xl] Unk Calcium 600 mg PO DAILY 08/03/22 05/11/24 metFORMIN HCL 500 mg PO BID 08/03/22 05/11/24 Flecainide Acetate 1 tab PO BID 09/15/23 05/11/24 dilTIAZem HCL [Cardizem CD] 1 tab PO DAILY 09/15/23 05/11/24 Allergies Allergy/AdvReac Type Severity Reaction Status Date / Time No Known Allergies Allergy Verified 06/22/24 15:26 Review of Systems ROS Other: All systems not noted in ROS Statement are negative. <Eloina Spear - Last Filed: 06/22/24 15:15> ROS Other: All systems not noted in ROS Statement are negative. Constitutional: Denies: fever Eyes: Denies: eye pain ENT: Denies: ear pain Respiratory: Denies: cough Cardiovascular: Denies: chest pain Endocrine: Reports: fatigue Gastrointestinal: Denies: abdominal pain, vomiting Neurological: Reports: weakness <Fahad French - Last Filed: 06/22/24 18:45> ROS Statement: Those systems with pertinent positive or pertinent negative responses have been documented in the HPI. Past Medical History Past Medical History: Atrial Fibrillation, Cancer, Diabetes Mellitus, Hyperlipidemia, Hypertension Additional Past Medical History / Comment(s): RIGHT NON SMALL CELL LUNG CANDER. a fib started when living in [place], [place] lymphoma. History of Any Multi-Drug Resistant Organisms: None Reported Additional Past Surgical History / Comment(s): mediport implanted. Past Anesthesia/Blood Transfusion Reactions: No Reported Reaction Smoking Status: Current every day smoker - Past Family History Mother Family Medical History: Cancer Father Family Medical History: Coronary Artery Disease (CAD) <Eloina Spear - Last Filed: 06/22/24 15:15> General Exam <Eloina Spear - Last Filed: 06/22/24 15:15> Limitations: no limitations General appearance: alert, in no apparent distress Head exam: Present: normocephalic Eye exam: Present: normal appearance ENT exam: Present: normal oropharynx Neck exam: Present: normal inspection Respiratory exam: Present: normal lung sounds bilaterally Cardiovascular Exam: Present: regular rate, normal rhythm GI/Abdominal exam: Present: soft. Absent: tenderness Extremities exam: Present: normal inspection Neurological exam: Present: alert, oriented X3, CN II-XII intact. Absent: motor sensory deficit Psychiatric exam: Present: flat affect Skin exam: Present: normal color <Fahad French - Last Filed: 06/22/24 18:45> - General Exam Comments Initial Comments: Visual Physical Exam Vital signs reviewed General: Well-appearing, nontoxic, no acute distress. 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 Nonspecific T wave.), sinus rhythm, normal axis <Fahad French - Last Filed: 06/22/24 18:45> Medical Decision Making <Eloina Spear - Last Filed: 06/22/24 15:15> - Lab Data Result diagrams: 06/22/24 15:43 06/22/24 15:43 <Fahad French - Last Filed: 06/22/24 18:45> - Medical Decision Making I performed the quick note portion of this chart. Electronically signed by Eloina Spear PA-C (Eloina Spear) Was pt. sent in by a medical professional or institution (YESSI Martines, ASSEMBLY LINE DRIVER, urgent care, hospital, or [facility]...) When possible be specific @ -No Did you speak to anyone other than the patient for history (EMS, parent, family, police, friend...)? What history was obtained from this source @ - is present helps provide history including patient inability to stand or transfer on her own. Did you review nursing and triage notes (agree or disagree)? Why? @ -I reviewed and agree with nursing and triage notes Were old charts reviewed (outside hosp., previous admission, EMS record, old EKG, old radiological studies, urgent care reports/EKG's, [facility] records)? Report findings @ -No old charts were reviewed Differential Diagnosis (chest pain, altered mental status, abdominal pain women, abdominal pain men, vaginal bleeding, weakness, fever, dyspnea, syncope, headache, dizziness, GI bleed, back pain, seizure, CVA, palpatations, mental health, musculoskeletal)? @ -Differential Weakness: Hypoglycemia, shock, sepsis, hyponatremia, anemia, infection, SC, ETOH, adverse medicine reaction, overdose, stroke, this is not meant to be an all-inclusive list. EKG interpreted by me (3pts min.). @ -As above X-rays interpreted by me (1pt min.). @ -Chest x-ray shows right-sided pulmonary masses CT interpreted by me (1pt min.). @ -None done U/S interpreted by me (1pt. min.). @ -None done What testing was considered but not performed or refused? (CT, X-rays, U/S, labs)? Why? @ -None What meds were considered but not given or refused? Why? @ -None Did you discuss the management of the patient with other professionals (professionals i.e. , PA, ASSEMBLY LINE DRIVER, lab, RT, psych nurse, social work job titles, sql report developer, teacher, field crop technical officer, egg caser)? Give summary @ -Case was discussed with practitioner Miriam who will admit covering Dr. Kwok. She agrees with consults. She recommends fluid at this time and will follow-up with calcium level Was smoking cessation discussed for >3mins.? @ -No Was critical care preformed (if so, how long)? @ -31 minutes critical care time Were there social determinants of health that impacted care today? How? (Homelessness, low income, unemployed, alcoholism, drug addiction, transportation, low edu. Level, literacy, decrease access to med. care, alf, rehab)? @ -No Was there de-escalation of care discussed even if they declined (Discuss DNR or withdrawal of care, Hospice)? DNR status @ -No What co-morbidities impacted this encounter? (DM, HTN, Smoking, COPD, CAD, Cancer, CVA, ARF, Chemo, Hep., AIDS, mental health diagnosis, sleep apnea, morbid obesity)? @ -History of lung cancer on chemotherapy Was patient admitted / discharged? Hospital course, mention meds given and route, prescriptions, significant lab abnormalities, going to OR and other pertinent info. @ -Patient presents with generalized weakness with lung cancer and chemotherapy. Patient has mild electrolyte disorders however severe hyper calcium Madai. Patient will be admitted with IV fluids. Patient and family updated. Admission orders written. Undiagnosed new problem with uncertain prognosis? @ -No Drug Therapy requiring intensive monitoring for toxicity (Heparin, Nitro, Insulin, Cardizem)? @ -No Were any procedures done? @ -No Diagnosis/symptom? @ -Severe hypercalcemia Acute, or Chronic, or Acute on Chronic? @ -Acute Uncomplicated (without systemic symptoms) or Complicated (systemic symptoms)? @ -Default Side effects of treatment? @ -No Exacerbation, Progression, or Severe Exacerbation? @ -No Poses a threat to life or bodily function? How? (Chest pain, USA, SC, pneumonia, PE, COPD, DKA, ARF, appy, cholecystitis, CVA, Diverticulitis, Homicidal, Suicidal, threat to staff... and all critical care pts) @ -Threat to metabolic function (Fahad French) - Lab Data Lab Results 06/22/24 06/22/24 06/22/24 Range/Units 15:43 15:43 15:43 WBC 11.9 H (3.8-10.6) k/uL RBC 2.80 L (3.80-5.40) m/uL Hgb 9.4 L (11.4-16.0) gm/dL Hct 29.8 L (34.0-46.0) % MCV 106.6 H (80.0-100.0) fL MCH 33.5 (25.0-35.0) pg MCHC 31.4 (31.0-37.0) g/dL RDW 20.1 H (11.5-15.5) % Plt Count 306 (150-450) k/uL MPV 7.1 Neutrophils % 89 % Lymphocytes % 4 % Monocytes % 5 % Eosinophils % 0 % Basophils % 0 % Neutrophils # 10.6 H (1.3-7.7) k/uL Lymphocytes # 0.5 L (1.0-4.8) k/uL Monocytes # 0.6 (0-1.0) k/uL Eosinophils # 0.0 (0-0.7) k/uL Basophils # 0.0 (0-0.2) k/uL Manual Slide Review Performed Hypochromasia Moderate Poikilocytosis Slight Anisocytosis Moderate Macrocytosis Marked A Rouleaux Present PT 12.0 (10.0-12.5) sec INR 1.1 (<1.2) APTT 20.3 L (22.0-30.0) sec Sodium 137 (137-145) mmol/L Potassium 2.8 L (3.5-5.1) mmol/L Chloride 95 L (98-107) mmol/L Carbon Dioxide 36 H (22-30) mmol/L Anion Gap 6 mmol/L BUN 26 H (7-17) mg/dL Creatinine 1.38 H (0.52-1.04) mg/dL Est GFR (CKD-EPI)AfAm 45 (>60 ml/min/1.73 sqM) Est GFR (CKD-EPI)NonAf 39 (>60 ml/min/1.73 sqM) Glucose 85 (74-99) mg/dL Plasma Lactic Acid Sebastián (0.7-2.0) mmol/L Calcium 16.1 H* (8.4-10.2) mg/dL Ionized Calcium Miguel (4.5-5.3) mg/dL Magnesium 1.8 (1.6-2.3) mg/dL Total Bilirubin 0.9 (0.2-1.3) mg/dL AST 19 (14-36) U/L ALT 13 (4-34) U/L Alkaline Phosphatase 140 H (38-126) U/L Troponin I (0.000-0.034) ng/mL Total Protein 9.4 H (6.3-8.2) g/dL Albumin 4.1 (3.5-5.0) g/dL Influenza Type A (PCR) (Not Detectd) Influenza Type B (PCR) (Not Detectd) RSV (PCR) (Not Detectd) SARS-CoV-2 (PCR) (Not Detectd) 06/22/24 06/22/24 06/22/24 Range/Units 15:43 15:43 15:43 WBC (3.8-10.6) k/uL RBC (3.80-5.40) m/uL Hgb (11.4-16.0) gm/dL Hct (34.0-46.0) % MCV (80.0-100.0) fL MCH (25.0-35.0) pg MCHC (31.0-37.0) g/dL RDW (11.5-15.5) % Plt Count (150-450) k/uL MPV Neutrophils % % Lymphocytes % % Monocytes % % Eosinophils % % Basophils % % Neutrophils # (1.3-7.7) k/uL Lymphocytes # (1.0-4.8) k/uL Monocytes # (0-1.0) k/uL Eosinophils # (0-0.7) k/uL Basophils # (0-0.2) k/uL Manual Slide Review Hypochromasia Poikilocytosis Anisocytosis Macrocytosis Rouleaux PT (10.0-12.5) sec INR (<1.2) APTT (22.0-30.0) sec Sodium (137-145) mmol/L Potassium (3.5-5.1) mmol/L Chloride (98-107) mmol/L Carbon Dioxide (22-30) mmol/L Anion Gap mmol/L BUN (7-17) mg/dL Creatinine (0.52-1.04) mg/dL Est GFR (CKD-EPI)AfAm (>60 ml/min/1.73 sqM) Est GFR (CKD-EPI)NonAf (>60 ml/min/1.73 sqM) Glucose (74-99) mg/dL Plasma Lactic Acid Sebastiná 1.3 (0.7-2.0) mmol/L Calcium (8.4-10.2) mg/dL Ionized Calcium Miguel (4.5-5.3) mg/dL Magnesium (1.6-2.3) mg/dL Total Bilirubin (0.2-1.3) mg/dL AST (14-36) U/L ALT (4-34) U/L Alkaline Phosphatase (38-126) U/L Troponin I 0.021 (0.000-0.034) ng/mL Total Protein (6.3-8.2) g/dL Albumin (3.5-5.0) g/dL Influenza Type A (PCR) Not Detected (Not Detectd) Influenza Type B (PCR) Not Detected (Not Detectd) RSV (PCR) Not Detected (Not Detectd) SARS-CoV-2 (PCR) Not Detected (Not Detectd) 06/22/24 Range/Units 18:06 WBC (3.8-10.6) k/uL RBC (3.80-5.40) m/uL Hgb (11.4-16.0) gm/dL Hct (34.0-46.0) % MCV (80.0-100.0) fL MCH (25.0-35.0) pg MCHC (31.0-37.0) g/dL RDW (11.5-15.5) % Plt Count (150-450) k/uL MPV Neutrophils % % Lymphocytes % % Monocytes % % Eosinophils % % Basophils % % Neutrophils # (1.3-7.7) k/uL Lymphocytes # (1.0-4.8) k/uL Monocytes # (0-1.0) k/uL Eosinophils # (0-0.7) k/uL Basophils # (0-0.2) k/uL Manual Slide Review Hypochromasia Poikilocytosis Anisocytosis Macrocytosis Rouleaux PT (10.0-12.5) sec INR (<1.2) APTT (22.0-30.0) sec Sodium (137-145) mmol/L Potassium (3.5-5.1) mmol/L Chloride (98-107) mmol/L Carbon Dioxide (22-30) mmol/L Anion Gap mmol/L BUN (7-17) mg/dL Creatinine (0.52-1.04) mg/dL Est GFR (CKD-EPI)AfAm (>60 ml/min/1.73 sqM) Est GFR (CKD-EPI)NonAf (>60 ml/min/1.73 sqM) Glucose (74-99) mg/dL Plasma Lactic Acid Sebastián (0.7-2.0) mmol/L Calcium (8.4-10.2) mg/dL Ionized Calcium Miguel 8.3 H* (4.5-5.3) mg/dL Magnesium (1.6-2.3) mg/dL Total Bilirubin (0.2-1.3) mg/dL AST (14-36) U/L ALT (4-34) U/L Alkaline Phosphatase (38-126) U/L Troponin I (0.000-0.034) ng/mL Total Protein (6.3-8.2) g/dL Albumin (3.5-5.0) g/dL Influenza Type A (PCR) (Not Detectd) Influenza Type B (PCR) (Not Detectd) RSV (PCR) (Not Detectd) SARS-CoV-2 (PCR) (Not Detectd) Critical Care Time Critical Care Time: Yes <Fahad French - Last Filed: 06/22/24 18:45> Disposition <Eloina Spear - Last Filed: 06/22/24 15:15> Is patient prescribed a controlled substance at d/c from ED?: No Time of Disposition: 18:45 <Fahad French - Last Filed: 06/22/24 18:45> Clinical Impression: Hypercalcemia Disposition: ADMITTED IP TO THIS HOSP Condition: Serious Referrals: Robert Vasquez MD [Primary Care Provider] - 1-2 days
[2024-06-22 15:58] LABS: Anisocytosis Moderate; Basophils % (A) 0 %; Eosinophils % (A) 0 %; HCT 29.8 % (34.0-46.0); HGB 9.4 gm/dL (11.4-16.0); Hypochromasia Moderate; Lymphocytes # (A) 0.5 k/uL (1.0-4.8); Lymphocytes % (A) 4 %; MCH 33.5 pg (25.0-35.0); MCHC 31.4 g/dL (31.0-37.0); MCV 106.6 fL (80.0-100.0); Macrocytosis Marked; Mean Platelet Volume 7.1; Monocytes # (A) 0.6 k/uL (0-1.0); Monocytes % (A) 5 %; Neutrophils # (A) 10.6 k/uL (1.3-7.7); Neutrophils % (A) 89 %; Platelet Count 306 k/uL (150-450); Poikilocytosis Slight; RDW 20.1 % (11.5-15.5); WBC 11.9 k/uL (3.8-10.6)
--- NOTE | 2024-06-22 16:03 | XR ---
EXAMINATION TYPE: XR chest 2V DATE OF EXAM: 06/22/2024 3:57 PM COMPARISON: Chest radiographs f multi 427. Rom CLINICAL INDICATION: Female, 69 years old with history of Weakness; [facility] TECHNIQUE: XR chest 2V Frontal and lateral views of the chest. FINDINGS: Lungs/Pleura: Multiple r pulmonary masslike areas are identified in the lung apex and right measuring 13 mm in the right lung base measuring up to 41 mm and right perihilar region measuring 72 x 45 mm. Bilateral blunting costophrenic angles. Flattening of the diaphragms. No evidence for pneumothorax. N o. Heart/mediastinum: Cardiomediastinal silhouette is unremarkable. Musculoskeletal: No acute osseous pathology. IMPRESSION: Enlarging pulmonary masses concerning for progression of disease with associated likely bilateral ple ural effusions. [facility], , 06/22/2024 4:01 PM
[2024-06-22 16:17] LABS: ALT 13 U/L (4-34); AST 19 U/L (14-36); African American GFR (CKD) 45 (>60 ml/min/1.73 sqM); Albumin 4.1 g/dL (3.5-5.0); Alkaline Phosphatase 140 U/L (38-126); Anion Gap 6 mmol/L; Blood Urea Nitrogen 26 mg/dL (7-17); Carbon Dioxide 36 mmol/L (22-30); Chloride 95 mmol/L (98-107); Glucose 85 mg/dL (74-99); Magnesium 1.8 mg/dL (1.6-2.3); Non-African American GFR(CKD) 39 (>60 ml/min/1.73 sqM); Potassium 2.8 mmol/L (3.5-5.1); Sodium 137 mmol/L (137-145); Total Bilirubin 0.9 mg/dL (0.2-1.3); Total Protein 9.4 g/dL (6.3-8.2)
[2024-06-22 16:36] LABS: Influenza A Not Detected (Not Detectd); Influenza B Not Detected (Not Detectd); RSV Not Detected (Not Detectd)
[2024-06-22 16:38] LABS: INR 1.1 (<1.2)
[2024-06-22 16:45] LABS: Partial Thromboplastin Time 20.3 sec (22.0-30.0)
[2024-06-22 17:02] LABS: Calcium 16.1 mg/dL (8.4-10.2)
[2024-06-22 17:07] LABS: Rouleaux Present
[2024-06-22] MEDS: SODIUM CHLORIDE 0.9% 1,000 ML IV STA ×2 (18:08→19:41)
[2024-06-22] MEDS ORDERED: ONDANSETRON 4 MG/2 ML VIAL IVP PRN (18:45)
[2024-06-22] MEDS ORDERED: NALOXONE 0.4 MG/ML 1 ML VIAL IV PRN (18:45)
[2024-06-22 18:46] LABS: Appearance,Urine Cloudy (Clear); Bacteria,Urine Few /hpf; Bilirubin,Urine Negative (Negative); Blood,Urine Small (Negative); Color,Urine Yellow; Glucose,Urine (UA) Negative (Negative); Ketones,Urine Negative (Negative); Leukocyte Esterase,Urine Large (Negative); Nitrite,Urine Negative (Negative); PH, Urine 6.5 (5.0-8.0); Protein,Urine Trace (Negative); RBC,Urine 66 /hpf (0-5); Specific Gravity,Urine 1.011 (1.001-1.035); Squamous Epithelial Cell,Urine 9 /hpf (0-4); Urobilinogen,Urine <2.0 mg/dL (<2.0); WBC,Urine >182 /hpf (0-5)
[2024-06-22] MEDS: POTASSIUM CHLORIDE ER 20 MEQ TAB.ER PO STA (18:57)
[2024-06-22] MEDS: SODIUM CHLORIDE 0.9% 1,000 ML IV SCH (20:00)
[2024-06-22] MEDS: ZOLEDRONIC ACID 4 MG in SODIUM CHLORIDE 0.9% 100 ML IV ONE (20:01)
[2024-06-22] MEDS: POTASSIUM CHLORIDE ER 20 MEQ TAB.ER PO SCH (20:30)
[2024-06-22] MEDS: CALCITONIN INJ 200 UNIT/ML (MDV) VIAL IM ONE (20:31)
[2024-06-22] MEDS: FLECAINIDE 50 MG TAB PO SCH (22:24)
[2024-06-22] MEDS: METOPROLOL SUCCINATE (ER) 50 MG TAB.ER.24H PO SCH (22:24)
[2024-06-22] MEDS: DILTIAZEM CD 120 MG CAP.ER.24H PO SCH (22:24)
[2024-06-22 23:56] LABS: ALT 14 U/L (4-34); AST 20 U/L (14-36); African American GFR (CKD) 50 (>60 ml/min/1.73 sqM); Albumin 3.9 g/dL (3.5-5.0); Alkaline Phosphatase 143 U/L (38-126); Anion Gap 8 mmol/L; Blood Urea Nitrogen 25 mg/dL (7-17); Carbon Dioxide 32 mmol/L (22-30); Chloride 97 mmol/L (98-107); Glucose 111 mg/dL (74-99); Non-African American GFR(CKD) 43 (>60 ml/min/1.73 sqM); Potassium 2.9 mmol/L (3.5-5.1); Sodium 137 mmol/L (137-145); Total Protein 9.5 g/dL (6.3-8.2)
[2024-06-23 00:17] LABS: Calcium 14.8 mg/dL (8.4-10.2)
[2024-06-23 07:16] LABS: Anisocytosis Moderate; Basophils % (A) 0 %; Eosinophils % (A) 0 %; HCT 33.8 % (34.0-46.0); HGB 10.4 gm/dL (11.4-16.0); Hypochromasia Moderate; Lymphocytes # (A) 0.3 k/uL (1.0-4.8); Lymphocytes % (A) 2 %; MCH 33.6 pg (25.0-35.0); MCHC 30.9 g/dL (31.0-37.0); MCV 108.9 fL (80.0-100.0); Macrocytosis Marked; Mean Platelet Volume 7.8; Monocytes # (A) 0.2 k/uL (0-1.0); Monocytes % (A) 2 %; Neutrophils % (A) 97 %; Platelet Count 344 k/uL (150-450); Poikilocytosis Slight; RBC 3.11 m/uL (3.80-5.40); RDW 20.3 % (11.5-15.5); WBC 16.5 k/uL (3.8-10.6)
[2024-06-23 07:31] LABS: ALT 13 U/L (4-34); AST 20 U/L (14-36); African American GFR (CKD) 56 (>60 ml/min/1.73 sqM); Albumin 3.8 g/dL (3.5-5.0); Alkaline Phosphatase 132 U/L (38-126); Anion Gap 9 mmol/L; Blood Urea Nitrogen 29 mg/dL (7-17); Carbon Dioxide 31 mmol/L (22-30); Chloride 99 mmol/L (98-107); Glucose 112 mg/dL (74-99); Magnesium 1.7 mg/dL (1.6-2.3); Non-African American GFR(CKD) 48 (>60 ml/min/1.73 sqM); Potassium 3.4 mmol/L (3.5-5.1); Sodium 139 mmol/L (137-145); Total Bilirubin 1.1 mg/dL (0.2-1.3); Total Protein 9.3 g/dL (6.3-8.2)
[2024-06-23 07:43] LABS: Calcium 13.7 mg/dL (8.4-10.2)
[2024-06-23] MEDS: POTASSIUM CHLORIDE ER 20 MEQ TAB.ER PO STA ×2 (08:24→16:13)
[2024-06-23] MEDS: ATORVASTATIN 10 MG TAB PO SCH (08:25)
[2024-06-23] MEDS: PANTOPRAZOLE 40 MG/10 ML VIAL IV SCH (08:28)
[2024-06-23] MEDS ORDERED: DEXTROSE 50% SYRINGE 50 ML IVP PRN ×2 (10:10)
--- NOTE | 2024-06-23 10:40 | P.NPCON ---
History of Present Illness - Reason for Consult acute renal failure - History of Present Illness Reason for consultation: Acute kidney injury and hypercalcemia History of present illness: Patient is a 69-year-old female seen in renal consultation for acute kidney injury and hypercalcemia. Creatinine was 1.38 on admission yesterday and is 1.16 today. Calcium was 16.1 and is 13.7 today. Patient came to the hospital due to generalized weakness. Patient has history of lung cancer and is maintained on chemotherapy outpatient. Patient states she was unable to even walk with a walker and was progressively getting weaker. Oral intake was also poor the last few days. She denies vomiting or diarrhea. Has been voiding. No gross hematuria or dysuria. She is unsure of the medications she take but Tums as well as vitamin D is noted on her home medication list. She did receive a liter of normal saline in the ER and is currently maintained on normal saline at 150 cc an hour. Also received zoledronic acid as well as intramuscular calcitonin June 22, 2024. Hemodynamically stable. Denies history of diabetes or coronary artery disease. Vital signs are stable. General: No acute distress. HEENT: Head exam is unremarkable. LUNGS: No audible rhonchi or wheezes. HEART: Rate and Rhythm are regular. ABDOMEN: Nontender. EXTREMITITES: No edema. a. Past Medical History Past Medical History: Atrial Fibrillation, Cancer, Diabetes Mellitus, Hyperlipidemia, Hypertension Additional Past Medical History / Comment(s): RIGHT NON SMALL CELL LUNG CANCER. a fib started when living in [place], waldenstrom lymphoma. History of Any Multi-Drug Resistant Organisms: None Reported Additional Past Surgical History / Comment(s): mediport implanted. Past Anesthesia/Blood Transfusion Reactions: No Reported Reaction Past Psychological History: Anxiety Smoking Status: Current every day smoker - Past Family History Mother Family Medical History: Cancer Father Family Medical History: Coronary Artery Disease (CAD) Medications and Allergies Home Medications Medication Instructions Recorded Confirmed Type Atorvastatin [Lipitor] 10 mg PO DAILY 08/03/22 06/22/24 History Cholecalciferol [Vitamin D3 (25 50 mcg PO DAILY 08/03/22 06/22/24 History Mcg = 1000 Iu)] Metoprolol Succinate (ER) [Toprol 50 mg PO DAILY 08/03/22 06/22/24 History Xl] Flecainide Acetate 50 mg PO BID 09/15/23 06/22/24 History dilTIAZem HCL [Cardizem CD] 120 mg PO DAILY 09/15/23 06/22/24 History Calcium Carbonate [Calcium] 600 mg PO DAILY 06/22/24 06/22/24 History Allergies Allergy/AdvReac Type Severity Reaction Status Date / Time No Known Allergies Allergy Verified 06/22/24 19:32 Physical Exam Vitals: Vital Signs Temp Pulse Pulse Resp BP Pulse Ox 06/23/24 08:18 98.4 F 87 18 107/87 93 L 06/23/24 07:59 96 06/23/24 06:23 98.6 F 80 18 158/112 96 06/23/24 04:51 70 16 159/88 97 06/23/24 02:40 80 16 168/97 97 06/23/24 01:16 74 16 180/97 06/23/24 00:45 73 16 195/90 97 06/22/24 22:18 71 16 186/87 95 06/22/24 21:44 98.4 F 78 16 192/88 94 L 06/22/24 20:37 74 16 188/87 96 06/22/24 18:09 97 06/22/24 17:55 97.1 F L 67 67 18 185/81 90 L 06/22/24 15:21 97.6 F 71 18 162/74 97 Intake and Output 06/22/24 06/23/24 06/23/24 22:59 06:59 14:59 Other: Weight 71.214 kg Results - Lab Results Most recent lab results Calcium 13.7 mg/dL (8.4-10.2) H* 06/23/24 05:36 Phosphorus 4.0 mg/dL (2.5-4.5) 06/23/24 05:36 Magnesium 1.7 mg/dL (1.6-2.3) 06/23/24 05:36 06/23/24 05:36 06/23/24 05:36 Assessment and Plan Plan: Assessment: 1. Acute kidney injury secondary to hypercalcemia induced ATN. Renal function improving. Creatinine 1.16 today. 2. Hypercalcemia secondary to volume contraction, calcium and vitamin D suppl ementation. Also possibly from underlying malignancy. Trending down. PTH appropriately suppressed at 2.6. Vitamin D level 66.1. 3. Hypokalemia from hypercalcemia induced diuresis. Being replaced. 4. Lung cancer with metastasis maintained on chemotherapy outpatient. Plan: Maintain IV fluids. Continue to replace potassium as needed. Continue to hold calcium and vitamin D supplements. Check 125 D3 level as well as serum electrophoresis with immunofixation. Avoid nephrotoxins. Check renal ultrasound. Thank you for the consultation. I will continue to follow the patient with you during her hospital stay.
[2024-06-23 11:22] LABS: Glucose,Whole Blood 131 mg/dL (70-110)
[2024-06-23] MEDS: INSULIN LISPRO (HumaLOG) 100 UNIT/ML 10 mL VL SQ SCH (12:24)
--- NOTE | 2024-06-23 13:07 | US ---
EXAMINATION TYPE: US kidneys/renal and bladder DATE OF EXAM: 06/23/2024 COMPARISON: NONE CLINICAL INDICATION: Female, 69 years old with history of william; WILLIAM TECHNIQUE: Grayscale imaging of the bilateral kidneys and urinary bladder: FINDINGS: EXAM MEASUREMENTS: Right Kidney: 11.2 x 6.0 x 4.6 cm Left Kidney: 9.8 x 5.1 x 3.8 cm Limitations due to patient's limited mobility Right Kidney: no evidence of hydronephrosis Left Kidney: limited evaluation, no evidence of hydronephrosis Bladder: wnl Bilateral Jets seen: no There is no evidence for hydronephrosis at this point in time. No nephrolithiasis is seen. Corticom edullary differentiation is maintained bilaterally. No masses are identified. The urinary bladder is anechoic. IMPRESSION: No hydronephrosis or nephrolithiasis. [facility], , 06/23/2024 1:04 PM
--- NOTE | 2024-06-23 15:19 | P.HPIM ---
History of Present Illness H&P Date: 06/23/24 Patient is a 69-year-old female with history of lung cancer status post chemotherapy, A-fib not on anticoagulation, hyperlipidemia and hypertension presents to the ER with generalized weakness which started on Tuesday and got progressively worse over next 2 days. Patient has been following up with o ncologist Dr. Cedillo at [facility]. 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 Patient has been getting chemotherapy. Most recent CAT scan of the lung on 05/22/2024 shows interval worsening of lung cancer and metastatic lung nodules. Patient has significant smoking history. She smoked almost a pack a day for close to 40 years. Currently smoking half pack a day. Patient is endorsing mild productive cough which she states is not worsening. Patient denies chest pain, shortness of breath, fever, chills, fall or head trauma, diarrhea constipation, numbness or tingling. Patient denies urgency, or urinary frequency. Initial lab work shows WBC 11.9, hemoglobin 9.4, hematocrit 29.8, MCV 106.6, sodium 134, potassium 2.8, chloride 95, bicarb 36, BUN 26, creatinine 1.38, lactic acid 1.3, calcium 16.1, ionized calcium 8.3, ALP 140, troponin I 0.021, PTH intact 2.6. Subsequent lab work on 06/23/2024 shows WBC 16.5, hemoglobin 10.4, MCV 108.9, platelet count 344, sodium 139, potassium 3.4, BUN 29, creatinine 1.16, calcium 13.7. Serology for influenza type A, type B, RSV and COVID-19 negative. Urinalysis shows high count of squamous epithelial cells indicating poor sample with trace hematuria and proteinuria and positive leukocyte esterase. Vital signs on arrival 97.6, pulse rate 61, respiratory 18, BP 162/74, oxygen saturation 97% on room air. Subsequent vital signs show temperature 98.4 F pulse rate 87, respiratory rate 18, blood pressure 107/87, oxygen saturation 93% on 2 L via nasal cannula Chest x-ray shows enlarging pulmonary masses concerning for progression of disease associated likely bilateral pleural effusion. Abdominal ultrasound shows no evidence for hydronephrosis or nephrolithiasis. Review of systems: Pertinent positives and negatives as discussed in HPI, a complete review of systems was performed and all other systems are negative. Social history: As above in HPI Physical examination: Vital signs reviewed General: non toxic, no distress, appears older than stated age, ill-appearing and cachectic looking Derm: no unusual rashes/lesions, warm Head: atraumatic, normocephalic, symmetric Eyes: EOMI, no lid lag, anicteric sclera, pupils equal round reactive to light ENT: Nose and ears atraumatic Neck: No cervical lymphadenopathy, trachea midline, supple Mouth: no lip lesion, mucus membranes moist Cardiovascular: S1S2 reg, no murmur, positive dorsalis pedis pulse bilateral, no edema Lungs: Decreased breath sounds bilaterally Abdominal: soft, nontender to palpation, no guarding Ext: muscle strength 5 out of 5 in all 4 extremities grossly, gross muscle atrophy noted in both upper and lower extremities. Neuro: CN II-XI grossly intact, no gross focal neuro deficits Psych: Alert, oriented, appropriate affect Assessment/Plan: This is a Patient is a 69-year-old female with history of lung cancer status post chemotherapy, A-fib not on anticoagulation, hyperlipidemia and hypertension presents to the ER with generalized weakness which started on Tuesday and got progressively worse over next 2 days. Case was discussed with the Emergency Room provider and decision was made to admit the patient for hypercalcemia in the setting of lung cancer. Labs and images: Initial lab work shows WBC 11.9, hemoglobin 9.4, hematocrit 29.8, MCV 106.6, sodium 134, potassium 2.8, chloride 95, bicarb 36, BUN 26, creatinine 1.38, lactic acid 1.3, calcium 16.1, ionized calcium 8.3, ALP 140, troponin I 0.021, PTH intact 2.6. Subsequent lab work on 06/23/2024 shows WBC 16.5, hemoglobin 10.4, MCV 108.9, platelet count 344, sodium 139, potassium 3.4, BUN 29, crea tinine 1.16, calcium 13.7. Serology for influenza type A, type B, RSV and COVID-19 negative. Urinalysis shows high count of squamous epithelial cells indicating poor sample with trace hematuria and proteinuria and positive leukocyte esterase. Vital signs on arrival 97.6, pulse rate 61, respiratory 18, BP 162/74, oxygen saturation 97% on room air. Subsequent vital signs show temperature 98.4 F p ulse rate 87, respiratory rate 18, blood pressure 107/87, oxygen saturation 93% on 2 L via nasal cannula Chest x-ray shows enlarging pulmonary masses concerning for progression of disease associated likely bilateral pleural effusion. Abdominal ultrasound shows no evidence for hydronephrosis or nephrolithiasis. Active problem: #Generalized weakness secondary to hypercalcemia in the setting of lung cancer #Reactive leukocytosis secondary to malignancy versus infectious process (pulmo nary versus urinary tract) #History of lung cancer and metastatic lung nodules #Prerenal WILLIAM in the setting of hypercalcemia as above #Acute hypoxemic respiratory failure #Nicotine dependence Ionized calcium 8.3, serum calcium improved initially from 16 to 13.7 Patient received calcitonin 4 units IM once and zoledronic acid 4 mg IV once Consult nephrology Consult oncology Consult PT/OT IV normal saline at 150 cc/h Monitor CBC and BMP Order blood culture, urine culture, sputum culture Order procalcitonin Repeat chest x-ray tomorrow a.m. Consider treating patient with Rocephin 1g IVP once daily if there is no improvement in leukocytosis #Non-anion gap metabolic acidosis #Hypokalemia Potassium chloride 20 mEq p.o. twice daily Continue monitor BMP #Hyperglycemia Sliding scale insulin and Accu-Chek Monitor for hypoglycemia #Elevated ALP secondary to malignancy Order GGT Chronic: Hypertension: Resume diltiazem 120 mg Atrial fibrillation: Resume metoprolol succinate 50 mg once daily, flecainide 50 mg p.o. twice daily Hyperlipidemia: Resume Lipitor 10 mg p.o. daily DVT prophylaxis: Lovenox 40 mg subcu daily GI prophylaxis: IV Protonix 40 mg daily F: IV normal saline at 150 cc/h E: Replete as needed N: Clear liquid diet A: Ambulatory at baseline The patient is admitted with an anticipated more than than 2 midnight stay for evaluation of generalized weakness, hypercalcemia, lung malignancy CODE STATUS: Full code Discussed with: Patient Anticipated discharge place: Pending clinical course Dictation was produced using [employer] dictation software. Please excuse any grammatical, word or spelling errors. Past Medical History Past Medical History: Atrial Fibrillation, Cancer, Diabetes Mellitus, Hyperlipidemia, Hypertension Additional Past Medical History / Comment(s): RIGHT NON SMALL CELL LUNG CANCER. a fib started when living in [place], waldenstrom lymphoma. History of Any Multi-Drug Resistant Organisms: None Reported Additional Past Surgical History / Comment(s): mediport implanted. Past Anesthesia/Blood Transfusion Reactions: No Reported Reaction Past Psychological History: Anxiety Smoking Status: Current every day smoker - Past Family History Mother Family Medical History: Cancer Father Family Medical History: Coronary Artery Disease (CAD) Medications and Allergies Home Medications Medication Instructions Recorded Confirmed Type Atorvastatin [Lipitor] 10 mg PO DAILY 08/03/22 06/22/24 History Cholecalciferol [Vitamin D3 (25 50 mcg PO DAILY 08/03/22 06/22/24 History Mcg = 1000 Iu)] Metoprolol Succinate (ER) [Toprol 50 mg PO DAILY 08/03/22 06/22/24 History Xl] Flecainide Acetate 50 mg PO BID 09/15/23 06/22/24 History dilTIAZem HCL [Cardizem CD] 120 mg PO DAILY 09/15/23 06/22/24 History Calcium Carbonate [Calcium] 600 mg PO DAILY 06/22/24 06/22/24 History Allergies Allergy/AdvReac Type Severity Reaction Status Date / Time No Known Allergies Allergy Verified 06/22/24 19:32 Physical Exam Vitals: Vital Signs Temp Pulse Pulse Resp BP Pulse Ox 06/23/24 08:18 98.4 F 87 18 107/87 93 L 06/23/24 07:59 96 06/23/24 06:23 98.6 F 80 18 158/112 96 06/23/24 04:51 70 16 159/88 97 06/23/24 02:40 80 16 168/97 97 06/23/24 01:16 74 16 180/97 06/23/24 00:45 73 16 195/90 97 06/22/24 22:18 71 16 186/87 95 06/22/24 21:44 98.4 F 78 16 192/88 94 L 06/22/24 20:37 74 16 188/87 96 06/22/24 18:09 97 06/22/24 17:55 97.1 F L 67 67 18 185/81 90 L 06/22/24 15:21 97.6 F 71 18 162/74 97 Intake and Output 06/22/24 06/23/24 06/23/24 22:59 06:59 14:59 Other: Weight 71.214 kg Results CBC & Chem 7: 06/23/24 05:36 06/23/24 10:29 Labs: Abnormal Lab Results - Last 24 Hours (Table) 06/22/24 06/22/24 06/22/24 Range/Units 15:43 15:43 15:43 WBC 11.9 H (3.8-10.6) k/uL RBC 2.80 L (3.80-5.40) m/uL Hgb 9.4 L (11.4-16.0) gm/dL Hct 29.8 L (34.0-46.0) % MCV 106.6 H (80.0-100.0) fL MCHC (31.0-37.0) g/dL RDW 20.1 H (11.5-15.5) % Neutrophils # 10.6 H (1.3-7.7) k/uL Lymphocytes # 0.5 L (1.0-4.8) k/uL Macrocytosis Marked A APTT 20.3 L (22.0-30.0) sec Potassium 2.8 L (3.5-5.1) mmol/L Chloride 95 L (98-107) mmol/L Carbon Dioxide 36 H (22-30) mmol/L BUN 26 H (7-17) mg/dL Creatinine 1.38 H (0.52-1.04) mg/dL Glucose (74-99) mg/dL Calcium 16.1 H* (8.4-10.2) mg/dL Ionized Calcium Miguel (4.5-5.3) mg/dL Alkaline Phosphatase 140 H (38-126) U/L Total Protein 9.4 H (6.3-8.2) g/dL PTH Intact (14.0-72.0) pg/mL Urine Appearance (Clear) Urine Protein (Negative) Urine Blood (Negative) Ur Leukocyte Esterase (Negative) Urine RBC (0-5) /hpf Urine WBC (0-5) /hpf Urine WBC Clumps (None) /hpf Ur Squamous Epith Cells (0-4) /hpf Urine Bacteria (None) /hpf 06/22/24 06/22/24 06/22/24 Range/Units 17:55 18:06 19:49 WBC (3.8-10.6) k/uL RBC (3.80-5.40) m/uL Hgb (11.4-16.0) gm/dL Hct (34.0-46.0) % MCV (80.0-100.0) fL MCHC (31.0-37.0) g/dL RDW (11.5-15.5) % Neutrophils # (1.3-7.7) k/uL Lymphocytes # (1.0-4.8) k/uL Macrocytosis APTT (22.0-30.0) sec Potassium (3.5-5.1) mmol/L Chloride (98-107) mmol/L Carbon Dioxide (22-30) mmol/L BUN (7-17) mg/dL Creatinine (0.52-1.04) mg/dL Glucose (74-99) mg/dL Calcium (8.4-10.2) mg/dL Ionized Calcium Miguel 8.3 H* (4.5-5.3) mg/dL Alkaline Phosphatase (38-126) U/L Total Protein (6.3-8.2) g/dL PTH Intact 2.6 L (14.0-72.0) pg/mL Urine Appearance Cloudy H (Clear) Urine Protein Trace H (Negative) Urine Blood Small H (Negative) Ur Leukocyte Esterase Large H (Negative) Urine RBC 66 H (0-5) /hpf Urine WBC >182 H (0-5) /hpf Urine WBC Clumps Few H (None) /hpf Ur Squamous Epith Cells 9 H (0-4) /hpf Urine Bacteria Few H (None) /hpf 06/22/24 06/23/24 06/23/24 Range/Units 23:20 05:36 05:36 WBC 16.5 H (3.8-10.6) k/uL RBC 3.11 L (3.80-5.40) m/uL Hgb 10.4 L (11.4-16.0) gm/dL Hct 33.8 L (34.0-46.0) % MCV 108.9 H (80.0-100.0) fL MCHC 30.9 L (31.0-37.0) g/dL RDW 20.3 H (11.5-15.5) % Neutrophils # 16.0 H (1.3-7.7) k/uL Lymphocytes # 0.3 L (1.0-4.8) k/uL Macrocytosis Marked A APTT (22.0-30.0) sec Potassium 2.9 L 3.4 L (3.5-5.1) mmol/L Chloride 97 L (98-107) mmol/L Carbon Dioxide 32 H 31 H (22-30) mmol/L BUN 25 H 29 H (7-17) mg/dL Creatinine 1.28 H 1.16 H (0.52-1.04) mg/dL Glucose 111 H 112 H (74-99) mg/dL Calcium 14.8 H* 13.7 H* (8.4-10.2) mg/dL Ionized Calcium Miguel (4.5-5.3) mg/dL Alkaline Phosphatase 143 H 132 H (38-126) U/L Total Protein 9.5 H 9.3 H (6.3-8.2) g/dL PTH Intact (14.0-72.0) pg/mL Urine Appearance (Clear) Urine Protein (Negative) Urine Blood (Negative) Ur Leukocyte Esterase (Negative) Urine RBC (0-5) /hpf Urine WBC (0-5) /hpf Urine WBC Clumps (None) /hpf Ur Squamous Epith Cells (0-4) /hpf Urine Bacteria (None) /hpf
--- NOTE | 2024-06-23 16:05 | P.CONS ---
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 She was treated with multiple plasmaphoresis, Rituxan infusion, Velcade and Ibrutinib. July [address] Scan of chest and PET Scan which were highly suggestive of stage III bronchogenic cancer. Biopsy of R4 & RUL: Squamous cell CA. She was initially treated with concurrent XRT/Chemotherapy well. She has been on multiple treatment regimens since. Most recent;y with single agent Gemzr completing last cycle on 05/31/24, unfortunately CT chest showed disease progression and Gemzar was discontinued. Plan is start treatment with Taxol/cyramza. Patient presented to the emergency room for weakness and confusion. Upon admit calcium was noted at 16.1, creatinine elevated at 1.38, GFR 39, BUN 26. Patient was given 1 dose of calcitonin, Zometa and IV fluids. Repeat calcium today 13.7. Kidney function improving. Vitamin D WNL at 66.1. PTH 2.6. WBC 16.5, hemoglobin 10.4, platelets 344,000. At today's visit patient is reporting some improvement in symptoms. She is alert and oriented x 3 answering questions appropriately. Denies pain. Patient is afebrile. Review of Systems 10 point ROS is negative except as stated in the HPI Past Medical History Past Medical History: Atrial Fibrillation, Cancer, Diabetes Mellitus, Hyperlipidemia, Hypertension Additional Past Medical History / Comment(s): RIGHT NON SMALL CELL LUNG CANCER. a fib started when living in [place], waldenstrom lymphoma. History of Any Multi-Drug Resistant Organisms: None Reported Additional Past Surgical History / Comment(s): mediport implanted. Past Anesthesia/Blood Transfusion Reactions: No Reported Reaction Past Psychological History: Anxiety Smoking Status: Current every day smoker - Past Family History Mother Family Medical History: Cancer Father Family Medical History: Coronary Artery Disease (CAD) Medications and Allergies Home Medications Medication Instructions Recorded Confirmed Type Atorvastatin [Lipitor] 10 mg PO DAILY 08/03/22 06/22/24 History Cholecalciferol [Vitamin D3 (25 50 mcg PO DAILY 08/03/22 06/22/24 History Mcg = 1000 Iu)] Metoprolol Succinate (ER) [Toprol 50 mg PO DAILY 08/03/22 06/22/24 History Xl] Flecainide Acetate 50 mg PO BID 09/15/23 06/22/24 History dilTIAZem HCL [Cardizem CD] 120 mg PO DAILY 09/15/23 06/22/24 History Calcium Carbonate [Calcium] 600 mg PO DAILY 06/22/24 06/22/24 History Allergies Allergy/AdvReac Type Severity Reaction Status Date / Time No Known Allergies Allergy Verified 06/22/24 19:32 Physical Exam Vitals: Vital Signs Temp Pulse Pulse Resp BP Pulse Ox 06/23/24 08:18 98.4 F 87 18 107/87 93 L 06/23/24 07:59 96 06/23/24 06:23 98.6 F 80 18 158/112 96 06/23/24 04:51 70 16 159/88 97 06/23/24 02:40 80 16 168/97 97 06/23/24 01:16 74 16 180/97 06/23/24 00:45 73 16 195/90 97 06/22/24 22:18 71 16 186/87 95 06/22/24 21:44 98.4 F 78 16 192/88 94 L 06/22/24 20:37 74 16 188/87 96 06/22/24 18:09 97 06/22/24 17:55 97.1 F L 67 67 18 185/81 90 L 06/22/24 15:21 97.6 F 71 18 162/74 97 Intake and Output 06/22/24 06/23/24 06/23/24 22:59 06:59 14:59 Other: Weight 71.214 kg - Constitutional General appearance: no acute distress - EENT Eyes: anicteric sclerae, EOMI ENT: hearing grossly normal - Respiratory breathing is even and unlabored - Cardiovascular skin warm and dry - Gastrointestinal General gastrointestinal: soft, no tenderness - Integumentary Integumentary: no cyanotic, jaundiced - Musculoskeletal Musculoskeletal: generalized weakness - Psychiatric Psychiatric: A&O x's 3 Results CBC & Chem 7: 06/23/24 05:36 06/23/24 10:29 Labs: Abnormal Lab Results - Last 24 Hours (Table) 06/22/24 06/22/24 06/22/24 Range/Units 15:43 15:43 15:43 WBC 11.9 H (3.8-10.6) k/uL RBC 2.80 L (3.80-5.40) m/uL Hgb 9.4 L (11.4-16.0) gm/dL Hct 29.8 L (34.0-46.0) % MCV 106.6 H (80.0-100.0) fL MCHC (31.0-37.0) g/dL RDW 20.1 H (11.5-15.5) % Neutrophils # 10.6 H (1.3-7.7) k/uL Lymphocytes # 0.5 L (1.0-4.8) k/uL Macrocytosis Marked A APTT 20.3 L (22.0-30.0) sec Potassium 2.8 L (3.5-5.1) mmol/L Chloride 95 L (98-107) mmol/L Carbon Dioxide 36 H (22-30) mmol/L BUN 26 H (7-17) mg/dL Creatinine 1.38 H (0.52-1.04) mg/dL Glucose (74-99) mg/dL POC Glucose (mg/dL) (70-110) mg/dL Calcium 16.1 H* (8.4-10.2) mg/dL Ionized Calcium Miguel (4.5-5.3) mg/dL Alkaline Phosphatase 140 H (38-126) U/L Total Protein 9.4 H (6.3-8.2) g/dL PTH Intact (14.0-72.0) pg/mL Urine Appearance (Clear) Urine Protein (Negative) Urine Blood (Negative) Ur Leukocyte Esterase (Negative) Urine RBC (0-5) /hpf Urine WBC (0-5) /hpf Urine WBC Clumps (None) /hpf Ur Squamous Epith Cells (0-4) /hpf Urine Bacteria (None) /hpf 06/22/24 06/22/24 06/22/24 Range/Units 17:55 18:06 19:49 WBC (3.8-10.6) k/uL RBC (3.80-5.40) m/uL Hgb (11.4-16.0) gm/dL Hct (34.0-46.0) % MCV (80.0-100.0) fL MCHC (31.0-37.0) g/dL RDW (11.5-15.5) % Neutrophils # (1.3-7.7) k/uL Lymphocytes # (1.0-4.8) k/uL Macrocytosis APTT (22.0-30.0) sec Potassium (3.5-5.1) mmol/L Chloride (98-107) mmol/L Carbon Dioxide (22-30) mmol/L BUN (7-17) mg/dL Creatinine (0.52-1.04) mg/dL Glucose (74-99) mg/dL POC Glucose (mg/dL) (70-110) mg/dL Calcium (8.4-10.2) mg/dL Ionized Calcium Miguel 8.3 H* (4.5-5.3) mg/dL Alkaline Phosphatase (38-126) U/L Total Protein (6.3-8.2) g/dL PTH Intact 2.6 L (14.0-72.0) pg/mL Urine Appearance Cloudy H (Clear) Urine Protein Trace H (Negative) Urine Blood Small H (Negative) Ur Leukocyte Esterase Large H (Negative) Urine RBC 66 H (0-5) /hpf Urine WBC >182 H (0-5) /hpf Urine WBC Clumps Few H (None) /hpf Ur Squamous Epith Cells 9 H (0-4) /hpf Urine Bacteria Few H (None) /hpf 06/22/24 06/23/24 06/23/24 Range/Units 23:20 05:36 05:36 WBC 16.5 H (3.8-10.6) k/uL RBC 3.11 L (3.80-5.40) m/uL Hgb 10.4 L (11.4-16.0) gm/dL Hct 33.8 L (34.0-46.0) % MCV 108.9 H (80.0-100.0) fL MCHC 30.9 L (31.0-37.0) g/dL RDW 20.3 H (11.5-15.5) % Neutrophils # 16.0 H (1.3-7.7) k/uL Lymphocytes # 0.3 L (1.0-4.8) k/uL Macrocytosis Marked A APTT (22.0-30.0) sec Potassium 2.9 L 3.4 L (3.5-5.1) mmol/L Chloride 97 L (98-107) mmol/L Carbon Dioxide 32 H 31 H (22-30) mmol/L BUN 25 H 29 H (7-17) mg/dL Creatinine 1.28 H 1.16 H (0.52-1.04) mg/dL Glucose 111 H 112 H (74-99) mg/dL POC Glucose (mg/dL) (70-110) mg/dL Calcium 14.8 H* 13.7 H* (8.4-10.2) mg/dL Ionized Calcium Miguel (4.5-5.3) mg/dL Alkaline Phosphatase 143 H 132 H (38-126) U/L Total Protein 9.5 H 9.3 H (6.3-8.2) g/dL PTH Intact (14.0-72.0) pg/mL Urine Appearance (Clear) Urine Protein (Negative) Urine Blood (Negative) Ur Leukocyte Esterase (Negative) Urine RBC (0-5) /hpf Urine WBC (0-5) /hpf Urine WBC Clumps (None) /hpf Ur Squamous Epith Cells (0-4) /hpf Urine Bacteria (None) /hpf 06/23/24 06/23/24 Range/Units 10:29 11:20 WBC (3.8-10.6) k/uL RBC (3.80-5.40) m/uL Hgb (11.4-16.0) gm/dL Hct (34.0-46.0) % MCV (80.0-100.0) fL MCHC (31.0-37.0) g/dL RDW (11.5-15.5) % Neutrophils # (1.3-7.7) k/uL Lymphocytes # (1.0-4.8) k/uL Macrocytosis APTT (22.0-30.0) sec Potassium 3.1 L (3.5-5.1) mmol/L Chloride (98-107) mmol/L Carbon Dioxide (22-30) mmol/L BUN (7-17) mg/dL Creatinine (0.52-1.04) mg/dL Glucose (74-99) mg/dL POC Glucose (mg/dL) 131 H (70-110) mg/dL Calcium (8.4-10.2) mg/dL Ionized Calcium Miguel (4.5-5.3) mg/dL Alkaline Phosphatase (38-126) U/L Total Protein (6.3-8.2) g/dL PTH Intact (14.0-72.0) pg/mL Urine Appearance (Clear) Urine Protein (Negative) Urine Blood (Negative) Ur Leukocyte Esterase (Negative) Urine RBC (0-5) /hpf Urine WBC (0-5) /hpf Urine WBC Clumps (None) /hpf Ur Squamous Epith Cells (0-4) /hpf Urine Bacteria (None) /hpf Chest x-ray: report reviewed Assessment and Plan (1) Non-small cell lung cancer (NSCLC) Current Visit: Yes Status: Acute Priority: High Code(s): C34.90 - MALIG NANT NEOPLASM OF UNSP PART OF UNSP BRONCHUS OR LUNG SNOMED Code(s): 310573984 (2) Hypercalcemia Current Visit: Yes Status: Acute Priority: High Code(s): E83.52 - HYPERCALCEMIA SNOMED Code(s): 48610843 Plan: Hypercalcemia, WILLIAM: Patient presented to the emergency room for weakness and confusion. -Upon admit calcium was noted at 16.1, creatinine elevated at 1.38, GFR 39, BUN 26. -Patient was given 1 dose of calcitonin, Zometa and IV fluids. Repeat calcium today 13.7. Kidney function improving. -Vitamin D WNL at 66.1. PTH appropriately suppressed at 2.6. -Hypercalcemia likely multifactorial due to dehydration, calcium supplementation, and possible component of hypercalcemia of malignancy. -Hold calcium supplementation. Continue IV hydration -Continue to monitor calcium levels daily NSCLC: -Oncology history as dictated in the HPI -Most recently treated with single agent Gemzar completing last cycle on 05/31/24, unfortunately CT chest showed disease progression and Gemzar was discontinued. -Plan is start treatment with Taxol/cyramza Waldenstrom Macroglobulenemia: -Diagnosed in 2014. -Previously on Ibrutinib, but it has been held due to treatment for her lung cancer
[2024-06-23 18:35] LABS: Glucose,Whole Blood 125 mg/dL (70-110)
[2024-06-23 20:10] LABS: Glucose,Whole Blood 128 mg/dL (70-110)
[2024-06-23] MEDS: amLODIPine 5 MG TAB PO SCH (22:30)
[2024-06-23] MEDS: ACETAMINOPHEN TAB 325 MG TAB PO PRN (22:30)
[2024-06-24 06:31] LABS: Glucose,Whole Blood 110 mg/dL (70-110)
[2024-06-24 09:04] LABS: Anisocytosis Moderate; Basophils % (A) 0 %; Eosinophils % (A) 0 %; HCT 31.3 % (34.0-46.0); HGB 9.6 gm/dL (11.4-16.0); Hypochromasia Marked; Lymphocytes # (A) 0.4 k/uL (1.0-4.8); Lymphocytes % (A) 2 %; MCH 34.1 pg (25.0-35.0); MCHC 30.6 g/dL (31.0-37.0); MCV 111.2 fL (80.0-100.0); Macrocytosis Marked; Mean Platelet Volume 7.5; Monocytes # (A) 0.4 k/uL (0-1.0); Monocytes % (A) 2 %; Neutrophils # (A) 18.9 k/uL (1.3-7.7); Neutrophils % (A) 96 %; Platelet Count 282 k/uL (150-450); Poikilocytosis Slight; RBC 2.81 m/uL (3.80-5.40); RDW 20.1 % (11.5-15.5); WBC 19.8 k/uL (3.8-10.6)
[2024-06-24 09:17] LABS: African American GFR (CKD) 49 (>60 ml/min/1.73 sqM); Anion Gap 8 mmol/L; Blood Urea Nitrogen 37 mg/dL (7-17); Calcium 12.3 mg/dL (8.4-10.2); Carbon Dioxide 26 mmol/L (22-30); Chloride 106 mmol/L (98-107); Glucose 96 mg/dL (74-99); Magnesium 1.7 mg/dL (1.6-2.3); Non-African American GFR(CKD) 42 (>60 ml/min/1.73 sqM); Potassium 4.6 mmol/L (3.5-5.1); Sodium 140 mmol/L (137-145)
--- NOTE | 2024-06-24 10:17 | P.PN ---
Subjective Patient is seen in follow-up for acute kidney injury and hypercalcemia. Renal function stable. Calcium level trending down. Oral intake poor. Vital signs are stable. General: No acute distress. HEENT: Head exam is unremarkable. LUNGS: No audible rhonchi or wheezes. HEART: Rate and Rhythm are regular. ABDOMEN: Nontender. EXTREMITITES: No edema. Objective - Vital Signs Vital signs: Vital Signs Temp 98.3 F 06/23/24 21:57 Pulse 57 L 06/24/24 03:14 Resp 23 06/24/24 03:14 BP 165/76 06/24/24 03:14 Pulse Ox 93 L 06/24/24 03:14 FiO2 Intake & Output 06/23/24 06/24/24 06/24/24 18:59 06:59 18:59 Intake Total 10 Balance 10 Weight 52.5 kg Intake: IV 10 Invasive Line 1 10 Other: Voiding Method Diaper External Catheter # Voids 1 # Bowel Movements 1 - Labs CBC & Chem 7: 06/24/24 07:54 06/24/24 07:54 Labs: Abnormal Lab Results - Last 24 Hours (Table) 06/23/24 06/23/24 06/23/24 Range/Units 10:29 11:20 18:33 WBC (3.8-10.6) k/uL RBC (3.80-5.40) m/uL Hgb (11.4-16.0) gm/dL Hct (34.0-46.0) % MCV (80.0-100.0) fL MCHC (31.0-37.0) g/dL RDW (11.5-15.5) % Neutrophils # (1.3-7.7) k/uL Lymphocytes # (1.0-4.8) k/uL Macrocytosis Potassium 3.1 L (3.5-5.1) mmol/L BUN (7-17) mg/dL Creatinine (0.52-1.04) mg/dL POC Glucose (mg/dL) 131 H 125 H (70-110) mg/dL Calcium (8.4-10.2) mg/dL 06/23/24 06/24/24 06/24/24 Range/Units 20:09 07:54 07:54 WBC 19.8 H (3.8-10.6) k/uL RBC 2.81 L (3.80-5.40) m/uL Hgb 9.6 L (11.4-16.0) gm/dL Hct 31.3 L (34.0-46.0) % MCV 111.2 H (80.0-100.0) fL MCHC 30.6 L (31.0-37.0) g/dL RDW 20.1 H (11.5-15.5) % Neutrophils # 18.9 H (1.3-7.7) k/uL Lymphocytes # 0.4 L (1.0-4.8) k/uL Macrocytosis Marked A Potassium (3.5-5.1) mmol/L BUN 37 H (7-17) mg/dL Creatinine 1.29 H (0.52-1.04) mg/dL POC Glucose (mg/dL) 128 H (70-110) mg/dL Calcium 12.3 H (8.4-10.2) mg/dL Assessment and Plan Plan: Assessment: 1. Acute kidney injury secondary to hypercalcemia induced ATN. Renal function stable with creatinine 1.29. No hydronephrosis noted on kidney ultrasound. 2. Hypercalcemia secondary to volume contraction, calcium and vitamin D supplementation. Also possibly from underlying malignancy. Trending down. PTH appropriately suppressed at 2.6. Vitamin D level 66.1. 3. Hypokalemia from hypercalcemia induced diuresis. Replaced. Better. 4. Non-small cell lung cancer with metastasis maintained on chemotherapy outpatient. Plan: Maintain IV fluids. Decrease rate to 100 cc an hour. Continue to hold calcium and vitamin D supplements. Status post calcitonin, Zometa upon admission. Follow-up 125 D3 level as well as serum electrophoresis with immunofixation. Avoid nephrotoxins.
[2024-06-24 11:33] LABS: Glucose,Whole Blood 94 mg/dL (70-110)
[2024-06-24] MEDS ORDERED: Magnesium Replacement Protocol 1 EACH MISC MISCELLANE PRN (13:47)
--- NOTE | 2024-06-24 13:51 | P.PN ---
Subjective Progress Note Date: 06/24/24 This is a 69-year-old female who is here because of hypercalcemia and weakness at home. Today her calcium level is back down to 12.3. Her BUN is 37 creatinine is 1.29. Her renal ultrasound reveals no obstructive uropathy or stones. There is no hydronephrosis noted. Nephrology is following this patient closely. She is having poor oral intake per the and she is also not had a bowel movement a couple days and staff reports that she is only been having fecal smearing. Her blood cell count is elevated at 19.8, hemoglobin 9.6. Review of Systems Constitutional: Denied any fatigue denied any fever. Cardio vascular: denied any chest pain, palpitations Gastrointestinal: denied any nausea, vomiting, diarrhea Pulmonary: Denied any shortness of breath cough Neurologic denied any new focal deficits All inpatient medications were reviewed and appropriate changes in these medications as dictated in the interval history and assessment and plan. PHYSICAL EXAMINATION: GENERAL: The patient is alert and oriented x3, not in any acute distress. Well developed, well nourished. HEENT: Pupils are round and equally reacting to light. EOMI. No scleral icterus. No conjunctival pallor. Normocephalic, atraumatic. No pharyngeal erythema. No thyromegaly. CARDIOVASCULAR: S1 and S2 present. No murmurs, rubs, or gallops. PULMONARY: Chest is clear to auscultation, no wheezing or crackles. ABDOMEN: Soft, nontender, nondistended, normoactive bowel sounds. No palpable organomegaly. MUSCULOSKELETAL: No joint swelling or deformity. EXTREMITIES: No cyanosis, clubbing, or pedal edema. NEUROLOGICAL: Gross neurological examination did not reveal any focal deficits. Generalized weakness SKIN: No rashes. Assessment and plan Generalized weakness secondary to hypercalcemia in the setting of lung cancer Reactive leukocytosis secondary to malignancy versus infectious process procalcitonin level is not elevated Possibility of a postobstructive pneumonia and patient's white blood cell count is up to 19 we will start the patient on IV ceftriaxone empirically Constipation History of lung cancer metastatic lung nodules Prerenal WILLIAM in the setting of hypercalcemia Acute hypoxemic respiratory failure Nicotine dependence An ion gap metabolic acidosis Hypokalemia Hypomagnesemia Hyperglycemia Elevated ALP secondary to malignancy GI prophylaxis DVT prophylaxis Full Code Plan Patient is evaluated today in follow-up on the medical floor. They are asking for increased diet above clear liquids only will put diet as tolerated We will start the patient empirically on IV ceftriaxone and oral azithromycin as her white blood cell count continues to become elevated although her procalcitonin level is 0.21 she could possibly have an underlying postobstructive pneumonia secondary to her underlying lung cancer Add lactulose once daily and a Dulcolax for the constipation Nephrology following Electrophoresis and immunofixation are pending Supplement magnesium Report BMP CBC in the morning PT OT consultation The impression and plan of care has been dictated by Trice Villegas, Nurse Practitioner as directed. Dr. Jordan MD I have performed a history and physical examination and medical decision making of this patient, discussed the same with the dictator, and agree with the dictators assessment and plan as written, documented as a scribe. Based on total visit time, I have performed more than 50% of this visit. Objective - Vital Signs Vital signs: Vital Signs Temp 98.3 F 06/23/24 21:57 Pulse 57 L 06/24/24 03:14 Resp 23 06/24/24 03:14 BP 165/76 06/24/24 03:14 Pulse Ox 93 L 06/24/24 03:14 FiO2 Intake & Output 06/23/24 06/24/24 06/24/24 18:59 06:59 18:59 Intake Total 10 Balance 10 Weight 52.5 kg Intake: IV 10 Invasive Line 1 10 Other: Voiding Method Diaper External Catheter # Voids 1 # Bowel Movements 1 - Labs CBC & Chem 7: 06/24/24 07:54 06/24/24 07:54 Labs: Abnormal Lab Results - Last 24 Hours (Table) 06/23/24 06/23/24 06/23/24 Range/Units 10:29 11:20 18:33 WBC (3.8-10.6) k/uL RBC (3.80-5.40) m/uL Hgb (11.4-16.0) gm/dL Hct (34.0-46.0) % MCV (80.0-100.0) fL MCHC (31.0-37.0) g/dL RDW (11.5-15.5) % Macrocytosis Potassium 3.1 L (3.5-5.1) mmol/L BUN (7-17) mg/dL Creatinine (0.52-1.04) mg/dL POC Glucose (mg/dL) 131 H 125 H (70-110) mg/dL Calcium (8.4-10.2) mg/dL 06/23/24 06/24/24 06/24/24 Range/Units 20:09 07:54 07:54 WBC 19.8 H (3.8-10.6) k/uL RBC 2.81 L (3.80-5.40) m/uL Hgb 9.6 L (11.4-16.0) gm/dL Hct 31.3 L (34.0-46.0) % MCV 111.2 H (80.0-100.0) fL MCHC 30.6 L (31.0-37.0) g/dL RDW 20.1 H (11.5-15.5) % Macrocytosis Marked A Potassium (3.5-5.1) mmol/L BUN 37 H (7-17) mg/dL Creatinine 1.29 H (0.52-1.04) mg/dL POC Glucose (mg/dL) 128 H (70-110) mg/dL Calcium 12.3 H (8.4-10.2) mg/dL Assessment and Plan Time with Patient: Less than 30
[2024-06-24] MEDS: LACTULOSE 20 GM/30 ML CUP PO ONE (14:29)
[2024-06-24] MEDS: AZITHROMYCIN 500 MG TAB PO SCH (14:29)
[2024-06-24] MEDS: bisacodyL 10 MG SUPP RECTAL STA (14:30)
[2024-06-24] MEDS: MAGNESIUM SULFATE-D5W PMX 1 GM in DEXTROSE/WATER 1 100ML.BAG IVPB ONE (15:53)
[2024-06-24 16:30] LABS: Glucose,Whole Blood 107 mg/dL (70-110)
[2024-06-25 06:46] LABS: Glucose,Whole Blood 98 mg/dL (70-110)
[2024-06-25] MEDS: FUROSEMIDE 10 MG/ML 4 ML VIAL IV STA (06:52)
[2024-06-25 07:13] LABS: Anisocytosis Moderate; Basophils % (A) 0 %; Eosinophils % (A) 0 %; HGB 9.5 gm/dL (11.4-16.0); Hypochromasia Marked; Lymphocytes # (A) 0.4 k/uL (1.0-4.8); Lymphocytes % (A) 2 %; MCH 33.3 pg (25.0-35.0); MCHC 29.6 g/dL (31.0-37.0); MCV 112.5 fL (80.0-100.0); Macrocytosis Marked; Mean Platelet Volume 7.8; Monocytes # (A) 0.5 k/uL (0-1.0); Monocytes % (A) 2 %; Neutrophils % (A) 96 %; Platelet Count 257 k/uL (150-450); Poikilocytosis Slight; RBC 2.84 m/uL (3.80-5.40); RDW 20.5 % (11.5-15.5); WBC 23.9 k/uL (3.8-10.6)
[2024-06-25 07:21] LABS: African American GFR (CKD) 51 (>60 ml/min/1.73 sqM); Anion Gap 12 mmol/L; Blood Urea Nitrogen 34 mg/dL (7-17); Calcium 11.4 mg/dL (8.4-10.2); Carbon Dioxide 22 mmol/L (22-30); Chloride 108 mmol/L (98-107); Glucose 77 mg/dL (74-99); Magnesium 1.9 mg/dL (1.6-2.3); Non-African American GFR(CKD) 44 (>60 ml/min/1.73 sqM); Potassium 3.7 mmol/L (3.5-5.1); Sodium 142 mmol/L (137-145)
--- NOTE | 2024-06-25 07:25 | XR ---
EXAMINATION TYPE: XR chest 1V portable DATE OF EXAM: 06/25/2024 7:15 AM COMPARISON: Chest radiographs from 06/22/2024 CLINICAL INDICATION: Female, 69 years old with history of Resp distress; TECHNIQUE: XR chest 1V portable Frontal view of the chest. FINDINGS: Lungs/Pleura: Blunting of the right costophrenic angle. There is no evidence of left pleural effusio n, focal consolidation, or pneumothorax Pulmonary vascularity: Unremarkable. Heart/mediastinum: Cardiomediastinal silhouette is partially obscured due to overlying and adjacent o pacities. Atherosclerotic calcifications are seen in the aorta. Musculoskeletal: No acute osseous pathology. Other findings: None Lines/Tubes: [id number] projecting over the right hemithorax with distal tip at the cavoatrial junction. IMPRESSION: Large right pleural effusion with [id number]. [facility], , 06/25/2024 7:22 AM
[2024-06-25 11:18] LABS: Glucose,Whole Blood 89 mg/dL (70-110)
[2024-06-25 11:33] LABS: GGT 65 U/L (0-38)
[2024-06-25 11:56] LABS: Protein, Total 8.8 g/dL (6.2-8.2)
[2024-06-25] MEDS: PIPERACILLIN-TAZOBACTAM 3.375 GM in SODIUM CHLORIDE 0.9% 100 ML IVPB SCH (12:47)
--- NOTE | 2024-06-25 13:16 | P.PN ---
Subjective Progress Note Date: 06/25/24 Hospital Course: Patient is a 69-year-old female with history of lung cancer status post chemotherapy, A-fib not on anticoagulation, hyperlipidemia and hypertension presents to the ER with generalized weakness which started on Tuesday and got progressively worse over next 2 days. Patient has been following up with oncologist Dr. Cedillo at [facility]. 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 Patient has been getting chemotherapy. Most recent CAT scan of the lung on 05/22/2024 shows interval worsening of lung cancer and metastatic lung nodules. Patient has significant smoking history. She smoked almost a pack a day for close to 40 years. Currently smoking half pack a day. Patient is endorsing mild productive cough which she states is not worsening. Patient denies chest pain, shortness of breath, fever, chills, fall or head trauma, diarrhea constipation, numbness or tingling. Patient denies urgency, or urinary frequency. Initial lab work shows WBC 11.9, hemoglobin 9.4, hematocrit 29.8, MCV 106.6, sodium 134, potassium 2.8, chloride 95, bicarb 36, BUN 26, creatinine 1.38, lactic acid 1.3, calcium 16.1, ionized calcium 8.3, ALP 140, troponin I 0.021, PTH intact 2.6. Subsequent lab work on 06/23/2024 shows WBC 16.5, hemoglobin 10.4, MCV 108.9, platelet count 344, sodium 139, potassium 3.4, BUN 29, creatinine 1.16, calcium 13.7. Serology for influenza type A, type B, RSV and COVID-19 negative. Urinalysis shows high count of squamous epithelial cells indicating poor sample with trace hematuria and proteinuria and positive leukocyte esterase. Vital signs on arrival 97.6, pulse rate 61, respiratory 18, BP 162/74, oxygen saturation 97% on room air. Subsequent vital signs show temperature 98.4 F pulse rate 87, respiratory rate 18, blood pressure 107/87, oxygen saturation 93% on 2 L via nasal cannula Chest x-ray shows enlarging pulmonary masses concerning for progression of disease associated likely bilateral pleural effusion. Abdominal ultrasound shows no evidence for hydronephrosis or nephrolithiasis. Subjective: Patient seen and examined at bedside. A - team was called in the morning because of shortness of breath and decreased O2 saturation. Patient was given a dose of IV Lasix and was placed on BiPAP with a setting of 12/5 with FiO2 100%. Currently, patient continued to be in mild respiratory distress with a BiPAP setting of 12/5 with FiO2 80%. Chest x-ray in the morning shows right-sided large pleural effusion. All Systems reviewed and pertinent positives and negatives noted in HPI, all other symptoms are negative Objective: Vital signs reviewed. General: non toxic, no distress, appears older than stated age, ill-appearing and cachectic looking Derm: no unusual rashes/lesions, warm Head: atraumatic, normocephalic, symmetric Eyes: EOMI, no lid lag, anicteric sclera, pupils equal round reactive to light ENT: Nose and ears atraumatic Neck: No cervical lymphadenopathy, trachea midline, supple Mouth: no lip lesion, mucus membranes moist Cardiovascular: S1S2 reg, no murmur, positive dorsalis pedis pulse bilateral, no edema Lungs: Decreased breath sounds bilaterally, on BiPAP Abdominal: soft, nontender to palpation, no guarding Ext: muscle strength 5 out of 5 in all 4 extremities grossly, gross muscle atrophy noted in both upper and lower extremities. Neuro: CN II-XI grossly intact, no gross focal neuro deficits Psych: Alert, oriented, appropriate affect Data reviewed today: Labs: WBC 23.9, hemoglobin 9.5, MCV 112.5, sodium 142, potassium 3.7, BUN 34, creatinine 1.24, calcium 11.4 Images: Chest x-ray in the morning shows right-sided large pleural effusion. Assessment and Plan: #Generalized weakness secondary to hypercalcemia in the setting of lung cancer #History of metastatic non-small cell lung cancer with outpatient chemotherapy #Reactive leukocytosis secondary to malignancy versus infectious process #Suspected postobstructive pneumonia secondary to above, procalcitonin negative #Prerenal WILLIAM in the setting of hypercalcemia as above #Acute hypoxemic respiratory failure on BiPAP #Nicotine dependence #Right-sided pleural effusion Calcium improved to 11.4 Nephrology on board, appreciate recs Oncology on board, appreciate recs PT/OT on board Consult pulmonology and infectious disease Monitor CBC and BMP Urine culture positive for E. coli Blood cultures sputum culture pending Procalcitonin negative Discontinue Rocephin and Zithromax; initiate broad-spectrum antibiotic treatment with IVPB Zosyn 3.375 g every 8 hour Continue to hold calcium and vitamin D supplements Serum and urine electrophoresis are pending #Non-anion gap metabolic acidosis, resolved #Hypokalemia, resolved Continue with potassium chloride 20 mEq p.o. twice daily Continue monitor BMP #Hyperglycemia Sliding scale insulin and Accu-Chek Monitor for hypoglycemia #Elevated ALP secondary to malignancy GGT 65 Continue to monitor Chronic: Hypertension: Resume diltiazem 120 mg Atrial fibrillation: Resume metoprolol succinate 50 mg once daily, flecainide 50 mg p.o. twice daily Hyperlipidemia: Resume Lipitor 10 mg p.o. daily DVT prophylaxis: Lovenox 40 mg subcu daily GI prophylaxis: IV Protonix 40 mg daily F: IV normal saline at 100 cc/h E: Replete as needed N: Clear liquid diet A: Ambulatory at baseline The patient is admitted with an anticipated more than than 2 midnight stay for evaluation of generalized weakness, hypercalcemia, lung malignancy CODE STATUS: Full code Discussed with: Patient Anticipated discharge place: Pending clinical course Dictation was produced using [employer] dictation software. Please excuse any grammatical, word or spelling errors. Objective - Vital Signs Vital signs: Vital Signs Temp 97.5 F L 06/25/24 12:27 Pulse 63 06/25/24 12:27 Resp 22 06/25/24 12:27 BP 133/81 06/25/24 12:27 Pulse Ox 99 06/25/24 12:27 FiO2 70 06/25/24 12:27 Intake & Output 06/24/24 06/25/24 06/25/24 18:59 06:59 18:59 Intake Total 2120 20 Output Total 3500 1000 Balance -1380 -980 Weight 51.2 kg Intake: IV 20 Invasive Line 1 20 Intake, IV Titration 2000 Amount Magnesium Sulfate-D5w Pmx 100 1 gm In Dextrose/Water 1 100ml.bag @ 100 mls/hr IVPB ONCE ONE Rx#: [id number] Sodium Chloride 0.9% 1, 1850 000 ml @ 100 mls/hr IV . Q10H [facility] Rx#:[id number] cefTRIAXone 1 gm In 50 Sodium Chloride 0.9% 50 ml @ 100 mls/hr IVPB Q24HR [facility] Rx#:[id number] Oral 120 Output: Urine 1800 1000 Straight 900 600 Post Void Residual 1700 Other: Voiding Method Diaper Diaper External Catheter External Catheter # Bowel Movements 1 1 - Labs CBC & Chem 7: 06/25/24 06:17 06/25/24 06:17 Labs: Abnormal Lab Results - Last 24 Hours (Table) 06/23/24 06/24/24 06/25/24 Range/Units 10:29 07:54 06:17 WBC (3.8-10.6) k/uL RBC (3.80-5.40) m/uL Hgb (11.4-16.0) gm/dL Hct (34.0-46.0) % MCV (80.0-100.0) fL MCHC (31.0-37.0) g/dL RDW (11.5-15.5) % Neutrophils # (1.3-7.7) k/uL Lymphocytes # (1.0-4.8) k/uL Macrocytosis Chloride 108 H (98-107) mmol/L BUN 34 H (7-17) mg/dL Creatinine 1.24 H (0.52-1.04) mg/dL Calcium 11.4 H (8.4-10.2) mg/dL GGT 65 H (0-38) U/L Total Protein (PEP) 8.8 H (6.2-8.2) g/dL 06/25/24 Range/Units 06:17 WBC 23.9 H (3.8-10.6) k/uL RBC 2.84 L (3.80-5.40) m/uL Hgb 9.5 L (11.4-16.0) gm/dL Hct 32.0 L (34.0-46.0) % MCV 112.5 H (80.0-100.0) fL MCHC 29.6 L (31.0-37.0) g/dL RDW 20.5 H (11.5-15.5) % Neutrophils # 23.0 H (1.3-7.7) k/uL Lymphocytes # 0.4 L (1.0-4.8) k/uL Macrocytosis Marked A Chloride (98-107) mmol/L BUN (7-17) mg/dL Creatinine (0.52-1.04) mg/dL Calcium (8.4-10.2) mg/dL GGT (0-38) U/L Total Protein (PEP) (6.2-8.2) g/dL Microbiology - Last 24 Hours (Table) 06/23/24 10:29 Blood Culture - Preliminary Blood 06/22/24 17:55 Urine Culture - Final Urine,Voided Escherichia coli
--- NOTE | 2024-06-25 15:11 | P.PN ---
Subjective Patient is seen for follow-up for acute kidney injury and hypercalcemia. Serum creatinine decreased to 1.2. Calcium has decreased to 11.4. Patient is currently maintained on BiPAP. Status post right thoracentesis with 700 mL of fluid obtained. Objective - Vital Signs Vital signs: Vital Signs Temp 97.5 F L 06/25/24 12:27 Pulse 63 06/25/24 12:27 Resp 22 06/25/24 12:27 BP 133/81 06/25/24 12:27 Pulse Ox 99 06/25/24 12:27 FiO2 70 06/25/24 12:27 Intake & Output 06/24/24 06/25/24 06/25/24 18:59 06:59 18:59 Intake Total 2120 20 Output Total 3500 1000 1100 Balance -1380 -980 -1100 Weight 51.2 kg Intake: IV 20 Invasive Line 1 20 Intake, IV Titration 2000 Amount Magnesium Sulfate-D5w Pmx 100 1 gm In Dextrose/Water 1 100ml.bag @ 100 mls/hr IVPB ONCE ONE Rx#: [id number] Sodium Chloride 0.9% 1, 1850 000 ml @ 100 mls/hr IV . Q10H [facility] Rx#:[id number] cefTRIAXone 1 gm In 50 Sodium Chloride 0.9% 50 ml @ 100 mls/hr IVPB Q24HR [facility] Rx#:[id number] Oral 120 Output: Urine 1800 1000 1100 Straight 900 600 Post Void Residual 1700 Other: Voiding Method Diaper Diaper External Catheter External Catheter # Bowel Movements 1 1 - Exam Patient is awake, on BiPAP Examination of the heart S1 and S2 Examination of the lungs bilateral breath sounds are heard Abdomen is soft nontender Examination of lower extremities shows no significant edema - Labs CBC & Chem 7: 06/25/24 06:17 06/25/24 06:17 Labs: Abnormal Lab Results - Last 24 Hours (Table) 06/23/24 06/24/24 06/25/24 Range/Units 10:29 07:54 06:17 WBC (3.8-10.6) k/uL RBC (3.80-5.40) m/uL Hgb (11.4-16.0) gm/dL Hct (34.0-46.0) % MCV (80.0-100.0) fL MCHC (31.0-37.0) g/dL RDW (11.5-15.5) % Neutrophils # (1.3-7.7) k/uL Lymphocytes # (1.0-4.8) k/uL Macrocytosis Chloride 108 H (98-107) mmol/L BUN 34 H (7-17) mg/dL Creatinine 1.24 H (0.52-1.04) mg/dL Calcium 11.4 H (8.4-10.2) mg/dL GGT 65 H (0-38) U/L Total Protein (PEP) 8.8 H (6.2-8.2) g/dL 06/25/24 Range/Units 06:17 WBC 23.9 H (3.8-10.6) k/uL RBC 2.84 L (3.80-5.40) m/uL Hgb 9.5 L (11.4-16.0) gm/dL Hct 32.0 L (34.0-46.0) % MCV 112.5 H (80.0-100.0) fL MCHC 29.6 L (31.0-37.0) g/dL RDW 20.5 H (11.5-15.5) % Neutrophils # 23.0 H (1.3-7.7) k/uL Lymphocytes # 0.4 L (1.0-4.8) k/uL Macrocytosis Marked A Chloride (98-107) mmol/L BUN (7-17) mg/dL Creatinine (0.52-1.04) mg/dL Calcium (8.4-10.2) mg/dL GGT (0-38) U/L Total Protein (PEP) (6.2-8.2) g/dL Microbiology - Last 24 Hours (Table) 06/23/24 10:29 Blood Culture - Preliminary Blood 06/22/24 17:55 Urine Culture - Final Urine,Voided Escherichia coli Assessment and Plan Assessment: 1. Acute kidney injury secondary to hypercalcemia induced ATN. Renal function stable with creatinine 1.29. No hydronephrosis noted on kidney ultrasound. 2. Hypercalcemia secondary to volume contraction, calcium supplementation. Also possibly from underlying malignancy. Trending down. PTH appropriately suppressed at 2.6. Vitamin D level 66.1. 3. Hypokalemia from hypercalcemia induced diuresis. Replaced. Better. 4. Non-small cell lung cancer with metastasis maintained on chemotherapy outpatient. Plan: Continue off of calcium supplements May continue off of IV fluids Repeat labs in a.m.
--- NOTE | 2024-06-25 15:43 | P.PN ---
Subjective Progress Note Date: 06/25/24 Principal diagnosis: Confusion, SOB. Metastatic NSCLC, WM In follow-up today patient's is at the bedside. He states that she "had an 18 called on her" earlier this morning. Patiently is currently on BiPAP, very drowsy, only slightly arousable. Oxygen saturation of 100%. Patient reports that despite what she went through this morning, she looks better than she did on admission. Objective - Vital Signs Vital signs: Vital Signs Temp 97.5 F L 06/25/24 12:27 Pulse 65 06/25/24 15:20 Resp 22 06/25/24 15:20 BP 136/73 06/25/24 15:20 Pulse Ox 93 L 06/25/24 15:20 FiO2 70 06/25/24 12:27 Intake & Output 06/24/24 06/25/24 06/25/24 18:59 06:59 18:59 Intake Total 2120 20 Output Total 3500 1000 1100 Balance -1380 -980 -1100 Weight 51.2 kg Intake: IV 20 Invasive Line 1 20 Intake, IV Titration 2000 Amount Magnesium Sulfate-D5w Pmx 100 1 gm In Dextrose/Water 1 100ml.bag @ 100 mls/hr IVPB ONCE ONE Rx#: [id number] Sodium Chloride 0.9% 1, 1850 000 ml @ 100 mls/hr IV . Q10H [facility] OF [facility] Rx#:[id number] cefTRIAXone 1 gm In 50 Sodium Chloride 0.9% 50 ml @ 100 mls/hr IVPB Q24HR ON LICENSE OF [facility] Rx#:[id number] Oral 120 Output: Urine 1800 1000 1100 Straight 900 600 Post Void Residual 1700 Other: Voiding Method Diaper Diaper Indwelling Catheter External Catheter External Catheter # Bowel Movements 1 1 - Constitutional Constitutional Comment(s): Thin, frail, no meaningful interaction with patient. General appearance: Present: mild distress, thin - Cardiovascular Details: Skin warm, dry to the touch - Peripheral edema leg Peripheral Edema: bilateral: None - Musculoskeletal Musculoskeletal: Present: generalized weakness - Psychiatric Psychiatric: Absent: A&O x's 3, appropriate affect, intact judgment & insight - Labs CBC & Chem 7: 06/25/24 06:17 06/25/24 06:17 Labs: Abnormal Lab Results - Last 24 Hours (Table) 06/23/24 06/24/24 06/25/24 Range/Units 10:29 07:54 06:17 WBC (3.8-10.6) k/uL RBC (3.80-5.40) m/uL Hgb (11.4-16.0) gm/dL Hct (34.0-46.0) % MCV (80.0-100.0) fL MCHC (31.0-37.0) g/dL RDW (11.5-15.5) % Neutrophils # (1.3-7.7) k/uL Lymphocytes # (1.0-4.8) k/uL Macrocytosis Chloride 108 H (98-107) mmol/L BUN 34 H (7-17) mg/dL Creatinine 1.24 H (0.52-1.04) mg/dL Calcium 11.4 H (8.4-10.2) mg/dL GGT 65 H (0-38) U/L Total Protein (PEP) 8.8 H (6.2-8.2) g/dL 06/25/24 Range/Units 06:17 WBC 23.9 H (3.8-10.6) k/uL RBC 2.84 L (3.80-5.40) m/uL Hgb 9.5 L (11.4-16.0) gm/dL Hct 32.0 L (34.0-46.0) % MCV 112.5 H (80.0-100.0) fL MCHC 29.6 L (31.0-37.0) g/dL RDW 20.5 H (11.5-15.5) % Neutrophils # 23.0 H (1.3-7.7) k/uL Lymphocytes # 0.4 L (1.0-4.8) k/uL Macrocytosis Marked A Chloride (98-107) mmol/L BUN (7-17) mg/dL Creatinine (0.52-1.04) mg/dL Calcium (8.4-10.2) mg/dL GGT (0-38) U/L Total Protein (PEP) (6.2-8.2) g/dL Microbiology - Last 24 Hours (Table) 06/23/24 10:29 Blood Culture - Preliminary Blood 06/22/24 17:55 Urine Culture - Final Urine,Voided Escherichia coli - Imaging and Cardiology Chest x-ray: report reviewed Assessment and Plan (1) Hypercalcemia Current Visit: Yes Status: Acute Priority: High Code(s): E83.52 - HYPERCALCEMIA SNOMED Code(s): 62562592 (2) Non-small cell lung cancer (NSCLC) Current Visit: Yes Status: Acute Priority: High Code(s): C34.90 - MALIGNANT NEOPLASM OF UNSP PART OF UNSP BRONCHUS OR LUNG SNOMED Code(s): 684781451 Plan: Hypercalcemia -Ca++ 16.1 on admit. PTH low at 2.6. Most likely hypercalcemia of malignancy -Calcitonin and Zometa x 1 given. Pt cont on IV fluids. Ca++ today 11.1. -Hold calcium supplementation. Continue IV hydration -Continue to monitor calcium levels WILLIAM -Nephrology following pt, Cr and GFR improving NSCLC -Oncology history as dictated in consult -Most recently treated with single agent Gemzar completing last cycle on 05/31/24. Unfortunately CT chest showed disease progression, Gemzar was discontinued. -Plan is start treatment with Taxol/cyramza SOB -A-team called on pt this am for low O2 sats -Placed on bipap -Chest x-ray from this morning is reporting a large right pleural effusion. Pulmonary to assess. Possible thoracentesis. -Will see if pt resp status improves after thoracentesis Waldenstroms Macroglobulenemia: -Diagnosed in 2014. -Previously on Ibrutinib, but it has been held due to treatment for her lung cancer -Hgb baseline 8-9 range
[2024-06-25 16:07] VITALS: BMI 17.6
[2024-06-25 16:42] LABS: Glucose,Whole Blood 79 mg/dL (70-110)
--- NOTE | 2024-06-25 17:15 | XR ---
EXAMINATION TYPE: XR chest 1V portable DATE OF EXAM: 06/25/2024 4:59 PM COMPARISON: Chest radiographs from 06/25/2024 CLINICAL INDICATION: Female, 69 years old with history of Post right thoracentesis; TECHNIQUE: XR chest 1V portable Frontal view of the chest. FINDINGS: Lungs/Pleura: Improved aeration of the lung with masslike consolidation and persistent posterior cost ophrenic angle. There is no evidence of pleural effusion, focal consolidation, or pneumothorax. Pulmonary vascularity: Unremarkable. Heart/mediastinum: Cardiomediastinal silhouette is unremarkable. Musculoskeletal: No acute osseous pathology. Other findings: None Lines/Tubes: Right-sided PICC line with distal tip at the cavoatrial junction. IMPRESSION: Improved aeration of the right lung with persistent pulmonary masses as seen on prior CT. Consider fo llow-up CT to compare for progression if clinically warranted. [facility], , 06/25/2024 5:13 PM
--- NOTE | 2024-06-25 18:40 | P.CNPUL ---
History of Present Illness Consult date: 06/25/24 Requesting physician: Sanford Dukes Reason for consult: hypoxemia, pleural effusion, abnormal CXR/CT Chief complaint: Shortness of breath, weakness History of present illness: This is a 69-year-old female patient with a known history of 40-year pack per day ongoing smoking history, lung cancer status post chemotherapy. Her most recent CAT scan in May 2024 revealed interval worsening of the lung cancer and metastatic lung nodules. She presented to the emergency room back on June 22, 2024 for generalized weakness, unable to stand and poor appetite. Urine culture positive for E. coli. Blood culture revealed no growth. Initial chest x-ray showed enlarging pulmonary masses concerning for progression of disease and bilateral pleural effusions. Early this morning a rapid response team was called on her for increasing shortness of breath, O2 saturations 64% on 15 L nonrebreather. The patient was placed on BiPAP 12/5 and 100% with improvement. X-ray revealed a large right pleural effusion and we are consulted today for the same. Ultrasound of the chest did reveal significant right-sided pleural effusion and she did undergo a thoracentesis with 1.2 L of fluid removed this afternoon. Cytology pending. Her BiPAP settings have been decreased to 60% FiO2. She remains very weak. Barely able to swallow a drink of water. Her is at the bedside. Review of Systems REVIEW OF SYSTEMS: CONSTITUTIONAL: Positive for generalized weakness. Denies any recent significant weight loss or weight gain. EYES: Denies change in vision. EARS, NOSE, MOUTH, THROAT: Denies headaches, denies sore throat. CARDIOVASCULAR: Denies chest pain, palpitations or syncopal episodes. RESPIRATORY: Positive for shortness of breath, cough, congestion no hemoptysis. GASTROINTESTINAL: Positive for poor appetite GENITOURINARY: Denies hematuria, denies infections. MUSKULOSKELETAL: Denies pain, denies swelling. INTEGUMENTARY: Denies rash, denies eczema. NEUROLOGICAL: Denies recent memory loss, no recent seizure activity. PSYCHIATRIC: Denies anxiety, denies depression. HEMATOLOGIC/LYMPHATIC: Denies anemia, denies enlarged lymph nodes. Past Medical History Past Medical History: Atrial Fibrillation, Cancer, Diabetes Mellitus, Hyperlipidemia, Hypertension Additional Past Medical History / Comment(s): RIGHT NON SMALL CELL LUNG CANCER last chemo 3 weeks ago. a fib started when living in [place], waldenstrom lymphoma. History of Any Multi-Drug Resistant Organisms: None Reported Additional Past Surgical History / Comment(s): mediport implanted. lung and breast biopsy Past Anesthesia/Blood Transfusion Reactions: No Reported Reaction Past Psychological History: Anxiety Smoking Status: Current every day smoker Past Alcohol Use History: None Reported Additional Past Alcohol Use History / Comment(s): pt trying to quit will try nicotine patches. 1/2 ppd, smoked for 50yrs. Past Drug Use History: None Reported - Past Family History Mother Family Medical History: Cancer Father Family Medical History: Coronary Artery Disease (CAD) Medications and Allergies Home Medications Medication Instructions Recorded Confirmed Type Atorvastatin [Lipitor] 10 mg PO DAILY 08/03/22 06/22/24 History Cholecalciferol [Vitamin D3 (25 50 mcg PO DAILY 08/03/22 06/22/24 History Mcg = 1000 Iu)] Metoprolol Succinate (ER) [Toprol 50 mg PO DAILY 08/03/22 06/22/24 History Xl] Flecainide Acetate 50 mg PO BID 09/15/23 06/22/24 History dilTIAZem HCL [Cardizem CD] 120 mg PO DAILY 09/15/23 06/22/24 History Calcium Carbonate [Calcium] 600 mg PO DAILY 06/22/24 06/22/24 History Allergies Allergy/AdvReac Type Severity Reaction Status Date / Time No Known Allergies Allergy Verified 06/22/24 19:32 Physical Exam Vitals: Vital Signs Temp Pulse Resp BP Pulse Ox FiO2 06/25/24 16:52 93 L 06/25/24 16:49 25 H 90 L 80 06/25/24 16:39 31 H 126/79 82 L 60 06/25/24 15:51 60 06/25/24 15:20 65 22 136/73 93 L 70 06/25/24 12:27 97.5 F L 63 22 133/81 99 70 06/25/24 12:19 70 06/25/24 08:32 97 80 06/25/24 08:26 80 06/25/24 07:43 100 06/25/24 07:34 63 27 H 125/70 99 100 06/25/24 07:00 64 25 H 98 100 06/25/24 06:45 34 L 34 H 158/66 64 L 06/25/24 03:55 57 L 23 128/58 92 L 06/25/24 02:00 23 94 L 06/24/24 23:42 51 L 25 H 96 06/24/24 23:33 33 L 24 89 L 06/24/24 23:31 54 L 24 156/56 84 L 06/24/24 20:00 97.5 F L 57 L 21 135/63 93 L Intake and Output 06/25/24 06/25/24 06/25/24 06:59 14:59 22:59 Intake Total 10 Output Total 1000 1100 Balance -990 -1100 Intake: IV 10 Invasive Line 1 10 Output: Urine 1000 1100 Straight 600 Other: Voiding Method Diaper Indwelling Catheter External Catheter # Bowel Movements 1 Weight 51.2 kg 51.2 kg GENERAL EXAM: Alert, frail, very weak 69-year-old female, on BiPAP 12/5 and 60% FiO2 currently. HEAD: Normocephalic. EYES: Normal reaction of pupils, equal size. NOSE: Clear with pink turbinates. THROAT: No erythema or exudates. NECK: No masses, no JVD. CHEST: No chest wall deformity. LUNGS: Equal air entry with crackles in the right lung base, diminished. CVS: S1 and S2 normal with no audible murmur, regular rhythm. ABDOMEN: No hepatosplenomegaly, normal bowel sounds, no guarding or rigidity. SPINE: No scoliosis or deformity SKIN: No rashes CENTRAL NERVOUS SYSTEM: No focal deficits, tone is normal in all 4 extremities. EXTREMITIES: There is no peripheral edema. No clubbing, no cyanosis. Peripheral pulses are intact. Results - Laboratory Findings CBC and BMP: 06/25/24 06:17 06/25/24 06:17 PT/INR, D-dimer PT 12.0 sec (10.0-12.5) 06/22/24 15:43 INR 1.1 (<1.2) 06/22/24 15:43 Abnormal lab findings: Abnormal Labs 06/22/24 06/22/24 06/22/24 15:43 15:43 15:43 WBC 11.9 H RBC 2.80 L Hgb 9.4 L Hct 29.8 L MCV 106.6 H MCHC RDW 20.1 H Neutrophils # 10.6 H Lymphocytes # 0.5 L Macrocytosis Marked A APTT 20.3 L Potassium 2.8 L Chloride 95 L Carbon Dioxide 36 H BUN 26 H Creatinine 1.38 H Glucose POC Glucose (mg/dL) Calcium 16.1 H* Ionized Calcium Miguel GGT Alkaline Phosphatase 140 H Total Protein 9.4 H Total Protein (PEP) PTH Intact Urine Appearance Urine Protein Urine Blood Ur Leukocyte Esterase Urine RBC Urine WBC Urine WBC Clumps Ur Squamous Epith Cells Urine Bacteria 06/22/24 06/22/24 06/22/24 17:55 18:06 19:49 WBC RBC Hgb Hct MCV MCHC RDW Neutrophils # Lymphocytes # Macrocytosis APTT Potassium Chloride Carbon Dioxide BUN Creatinine Glucose POC Glucose (mg/dL) Calcium Ionized Calcium Miguel 8.3 H* GGT Alkaline Phosphatase Total Protein Total Protein (PEP) PTH Intact 2.6 L Urine Appearance Cloudy H Urine Protein Trace H Urine Blood Small H Ur Leukocyte Esterase Large H Urine RBC 66 H Urine WBC >182 H Urine WBC Clumps Few H Ur Squamous Epith Cells 9 H Urine Bacteria Few H 06/22/24 06/23/24 06/23/24 23:20 05:36 05:36 WBC 16.5 H RBC 3.11 L Hgb 10.4 L Hct 33.8 L MCV 108.9 H MCHC 30.9 L RDW 20.3 H Neutrophils # 16.0 H Lymphocytes # 0.3 L Macrocytosis Marked A APTT Potassium 2.9 L 3.4 L Chloride 97 L Carbon Dioxide 32 H 31 H BUN 25 H 29 H Creatinine 1.28 H 1.16 H Glucose 111 H 112 H POC Glucose (mg/dL) Calcium 14.8 H* 13.7 H* Ionized Calcium Miguel GGT Alkaline Phosphatase 143 H 132 H Total Protein 9.5 H 9.3 H Total Protein (PEP) PTH Intact Urine Appearance Urine Protein Urine Blood Ur Leukocyte Esterase Urine RBC Urine WBC Urine WBC Clumps Ur Squamous Epith Cells Urine Bacteria 06/23/24 06/23/24 06/23/24 10:29 10:29 11:20 WBC RBC Hgb Hct MCV MCHC RDW Neutrophils # Lymphocytes # Macrocytosis APTT Potassium 3.1 L Chloride Carbon Dioxide BUN Creatinine Glucose POC Glucose (mg/dL) 131 H Calcium Ionized Calcium Miguel GGT Alkaline Phosphatase Total Protein Total Protein (PEP) 8.8 H PTH Intact Urine Appearance Urine Protein Urine Blood Ur Leukocyte Esterase Urine RBC Urine WBC Urine WBC Clumps Ur Squamous Epith Cells Urine Bacteria 06/23/24 06/23/24 06/24/24 18:33 20:09 07:54 WBC RBC Hgb Hct MCV MCHC RDW Neutrophils # Lymphocytes # Macrocytosis APTT Potassium Chloride Carbon Dioxide BUN 37 H Creatinine 1.29 H Glucose POC Glucose (mg/dL) 125 H 128 H Calcium 12.3 H Ionized Calcium Miguel GGT 65 H Alkaline Phosphatase Total Protein Total Protein (PEP) PTH Intact Urine Appearance Urine Protein Urine Blood Ur Leukocyte Esterase Urine RBC Urine WBC Urine WBC Clumps Ur Squamous Epith Cells Urine Bacteria 06/24/24 06/25/24 06/25/24 07:54 06:17 06:17 WBC 19.8 H 23.9 H RBC 2.81 L 2.84 L Hgb 9.6 L 9.5 L Hct 31.3 L 32.0 L MCV 111.2 H 112.5 H MCHC 30.6 L 29.6 L RDW 20.1 H 20.5 H Neutrophils # 18.9 H 23.0 H Lymphocytes # 0.4 L 0.4 L Macrocytosis Marked A Marked A APTT Potassium Chloride 108 H Carbon Dioxide BUN 34 H Creatinine 1.24 H Glucose POC Glucose (mg/dL) Calcium 11.4 H Ionized Calcium Miguel GGT Alkaline Phosphatase Total Protein Total Protein (PEP) PTH Intact Urine Appearance Urine Protein Urine Blood Ur Leukocyte Esterase Urine RBC Urine WBC Urine WBC Clumps Ur Squamous Epith Cells Urine Bacteria - Diagnostic Findings Chest x-ray: image reviewed Assessment and Plan Assessment: Acute hypoxemic respiratory failure secondary to a large right sided pleural effusion requiring BiPAP support 12/5 and 100% FiO2 Large right sided pleural effusion status post thoracentesis today June 25, 2024 with 1.2 L of fluid removed. Cytology pending History of non-small cell lung cancer, squamous cell carcinoma, receiving chemotherapy in the outpatient setting. CT scan of the chest from May 2024 revealed progression of disease Urinary tract infection secondary to E. coli Generalized weakness secondary to hypercalcemia secondary to above Leukocytosis Anemia Acute kidney injury History of Waldenstrm's lymphoma Chronic and ongoing tobacco dependence History of atrial fibrillation Diabetes mellitus type 2 Hypertension Hyperlipidemia Plan: The patient was seen and evaluated Imaging, labs and medications reviewed Right sided thoracentesis performed today 1.2 L of fluid removed Cytology pending Still requiring BiPAP support 12/5 and 60% FiO2 Titrate the FiO2 as tolerated Continued on Zosyn Heparin for DVT prophylaxis Extremely weak and frail CODE STATUS to be addressed Spoke with the at the bedside Hospice consult will be placed for information We will continue to follow and make further recommendations based on her clinical status I have personally seen and examined the patient, performed the documentation and the assessment and plan as written. Number of minutes spent on the visit: 20 Dictation was produced using [employer] dictation software. Please excuse any grammatical, word or spelling errors. Time with Patient: Greater than 30
[2024-06-25 19:59] LABS: Glucose,Whole Blood 85 mg/dL (70-110)
[2024-06-25] MEDS: HEPARIN SODIUM,PORCINE 5,000 UNIT/ML 1 ML VIAL SQ SCH (21:42)
--- NOTE | 2024-06-25 22:32 | OP ---
OPERATIVE REPORT DATE OF SERVICE : PROCEDURE PERFORMED: Right-sided thoracentesis. PREOPERATIVE DIAGNOSIS: Right pleural effusion. POSTOPERATIVE DIAGNOSIS: Right pleural effusion. ANESTHESIA USED: 2 mL of 1% lidocaine. DESCRIPTION OF PROCEDURE: The patient was placed in the sitting upright position, the area below the right scapula was prepared in a sterile fashion. Drapes were applied. The fluid was earlier localized by ultrasound, and the marking was placed at the 8th intercostal space and tip of the scapula. The area was locally anesthetized, and was earlier prepared in a sterile fashion. Drapes were applied. Then, a 26-gauge needle was inserted at the same site after locally anesthetizing the location, and I was able to locate the fluid with the needle. Then, a small tiny incision was made, a standard thoracentesis catheter and needle used, advanced into the pleural space, and as soon as the fluid was obtained, the catheter was advanced into the pleural space and the needle was pulled out. Freely flowing fluid, roughly 1200 mL of mirna colored fluid removed from the right pleural space, fluid was freely flowing, sent for different diagnostic studies, the procedure was well tolerated, chest x-ray postoperatively showed no complications. MMODL / IJN: [id number] /
--- NOTE | 2024-06-25 23:03 | P.CONS ---
History of Present Illness - Reason for Consult Consult date: 06/25/24 Postobstructive pneumonia Requesting physician: Sanford Dukes - Chief Complaint Increasing shortness of breath x days - History of Present Illness Patient is a 69-year-old female with a past medical history significant for atrial fibrillation diabetes mellitus hypertension hyperlipidemia non-small cell lung cancer presenting to the hospital 3 days ago for evaluation of weakness with symptom has been going on for couple of days before presentation to the hospital also have decreased appetite and overall to be slightly confused on presentation to the hospital the patient was afebrile no fever have been called subsequently patient was nontachycardic rather bradycardic at points not hypotensive has been hypoxic currently on a BiPAP patient did have white count of 11.9 which is up to 23.9 today BUN and creatinine has been mildly elevated did have elevated calcium which is trending down her liver isms are normal urine has been positive cloudy with large leukocyte esterase more than 1-2 WBC and urine culture finalized with E. coli blood culture have been negative influenza RSV COVID testing was negative patient did have a chest x-ray enlarging pulmonary masses concerning for progression of disease with associated likely bilateral effusion patient has been started on Zosyn priorly treated with a Rocephin Zithromax infectious disease was consulted for further management of antibiotic therapy most information has been obtained from review the chart as the patient was not able to provide any history Review of Systems Positive point and negatives has been mentioned in the HPI, complete review of systems was performed and all other systems are negative Past Medical History Past Medical History: Atrial Fibrillation, Cancer, Diabetes Mellitus, Hyperlipidemia, Hypertension Additional Past Medical History / Comment(s): RIGHT NON SMALL CELL LUNG CANCER last chemo 3 weeks ago. a fib started when living in [place], waldenstrom lymphoma. History of Any Multi-Drug Resistant Organisms: None Reported Additional Past Surgical History / Comment(s): mediport implanted. lung and breast biopsy Past Anesthesia/Blood Transfusion Reactions: No Reported Reaction Past Psychological History: Anxiety Smoking Status: Current every day smoker Past Alcohol Use History: None Reported Additional Past Alcohol Use History / Comment(s): pt trying to quit will try nicotine patches. 1/2 ppd, smoked for 50yrs. Past Drug Use History: None Reported - Past Family History Mother Family Medical History: Cancer Father Family Medical History: Coronary Artery Disease (CAD) Medications and Allergies Home Medications Medication Instructions Recorded Confirmed Type Atorvastatin [Lipitor] 10 mg PO DAILY 08/03/22 06/22/24 History Cholecalciferol [Vitamin D3 (25 50 mcg PO DAILY 08/03/22 06/22/24 History Mcg = 1000 Iu)] Metoprolol Succinate (ER) [Toprol 50 mg PO DAILY 08/03/22 06/22/24 History Xl] Flecainide Acetate 50 mg PO BID 09/15/23 06/22/24 History dilTIAZem HCL [Cardizem CD] 120 mg PO DAILY 09/15/23 06/22/24 History Calcium Carbonate [Calcium] 600 mg PO DAILY 06/22/24 06/22/24 History Allergies Allergy/AdvReac Type Severity Reaction Status Date / Time No Known Allergies Allergy Verified 06/22/24 19:32 Physical Exam Vitals: Vital Signs Temp Pulse Resp BP Pulse Ox FiO2 06/25/24 12:27 97.5 F L 63 22 133/81 99 70 06/25/24 12:19 70 06/25/24 08:32 97 80 06/25/24 08:26 80 06/25/24 07:43 100 06/25/24 07:34 63 27 H 125/70 99 100 06/25/24 07:00 64 25 H 98 100 06/25/24 06:45 34 L 34 H 158/66 64 L 06/25/24 03:55 57 L 23 128/58 92 L 06/25/24 02:00 23 94 L 06/24/24 23:42 51 L 25 H 96 06/24/24 23:33 33 L 24 89 L 06/24/24 23:31 54 L 24 156/56 84 L 06/24/24 20:00 97.5 F L 57 L 21 135/63 93 L 06/24/24 16:00 98.3 F 49 L 18 149/69 93 L Intake and Output 06/24/24 06/25/24 06/25/24 22:59 06:59 14:59 Intake Total 810 10 Output Total 3500 1000 1100 Balance -2710 990 -1100 Intake: IV 10 10 Invasive Line 1 10 10 Intake, IV Titration 800 Amount Magnesium Sulfate-D5w Pmx 100 1 gm In Dextrose/Water 1 100ml.bag @ 100 mls/hr IVPB ONCE ONE Rx#: [id number] Sodium Chloride 0.9% 1, 650 000 ml @ 100 mls/hr IV . Q10H COUNTS INCLUDE 234 BEDS AT THE [facility] Rx#:[id number] cefTRIAXone 1 gm In 50 Sodium Chloride 0.9% 50 ml @ 100 mls/hr IVPB Q24HR COUNTS INCLUDE 234 BEDS AT THE [facility] Rx#:[id number] Output: Urine 1800 1000 1100 Straight 900 600 Post Void Residual 1700 Other: Voiding Method Diaper Diaper External Catheter External Catheter # Bowel Movements 1 Weight 51.2 kg GENERAL DESCRIPTION: Elderly female lying in bed, no distress. No tachypnea or a ccessory muscle of respiration use. HEENT: Shows Pallor , no scleral icterus. Oral mucous membrane is dry. NECK: Trachea central, no thyromegaly. LUNGS: Unlabored breathing. Decreased intensity of breath sounds HEART: S1, S2, regular rate and rhythm. ABDOMEN: Soft, no tenderness EXTREMITIES: No edema of feet. SKIN: No rash, no masses palpable. NEUROLOGICAL: The patient is lethargic orientation cannot determine Results CBC & Chem 7: 06/25/24 06:17 06/25/24 06:17 Labs: Abnormal Lab Results - Last 24 Hours (Table) 06/23/24 06/24/24 06/25/24 Range/Units 10:29 07:54 06:17 WBC (3.8-10.6) k/uL RBC (3.80-5.40) m/uL Hgb (11.4-16.0) gm/dL Hct (34.0-46.0) % MCV (80.0-100.0) fL MCHC (31.0-37.0) g/dL RDW (11.5-15.5) % Neutrophils # (1.3-7.7) k/uL Lymphocytes # (1.0-4.8) k/uL Macrocytosis Chloride 108 H (98-107) mmol/L BUN 34 H (7-17) mg/dL Creatinine 1.24 H (0.52-1.04) mg/dL Calcium 11.4 H (8.4-10.2) mg/dL GGT 65 H (0-38) U/L Total Protein (PEP) 8.8 H (6.2-8.2) g/dL 06/25/24 Range/Units 06:17 WBC 23.9 H (3.8-10.6) k/uL RBC 2.84 L (3.80-5.40) m/uL Hgb 9.5 L (11.4-16.0) gm/dL Hct 32.0 L (34.0-46.0) % MCV 112.5 H (80.0-100.0) fL MCHC 29.6 L (31.0-37.0) g/dL RDW 20.5 H (11.5-15.5) % Neutrophils # 23.0 H (1.3-7.7) k/uL Lymphocytes # 0.4 L (1.0-4.8) k/uL Macrocytosis Marked A Chloride (98-107) mmol/L BUN (7-17) mg/dL Creatinine (0.52-1.04) mg/dL Calcium (8.4-10.2) mg/dL GGT (0-38) U/L Total Protein (PEP) (6.2-8.2) g/dL Microbiology - Last 24 Hours (Table) 06/23/24 10:29 Blood Culture - Preliminary Blood 06/22/24 17:55 Urine Culture - Final Urine,Voided Escherichia coli Assessment and Plan (1) Postobstructive pneumonia Current Visit: Yes Status: Acute Code(s): J18.9 - PNEUMONIA, UNSPECIFIED ORGANISM SNOMED Code(s): 503135754 (2) Leukocytosis Current Visit: Yes Status: Acute Code(s): D72.829 - ELEVATED WHITE BLOOD CELL COUNT, UNSPECIFIED SNOMED Code(s): 857592022 Plan: 1patient with initially presented to hospital with weakness also have worsening of respiratory status requiring BiPAP chest x-ray with a worsening lung masses possible progression of her lung cancer and question of possible postobstructive pneumonia not entirely excluded 2-leukocytosis possible related to pneumonia 3-try to obtain sputum for Gram stain and culture 4-patient has been switched over to Zosyn appropriately to continue while waiting for the workup to be completed We will follow on clinical condition and cultures to further adjust medication if needed Thank you for this consultation we will follow the patient along with you Dictation was produced using [employer] dictation software. please excuse any grammatical, word or spelling errors. Time with Patient: Greater than 30
[2024-06-25] MEDS: DEXTROSE 5%-0.9% NACL 1,000 ML IV SCH (23:49)
[2024-06-26 03:35] LABS: Cholesterol,BF Source Pleural Fluid; Cholesterol,Body Fluid 34 mg/dL; Glucose, BF Source Pleural Fluid; Glucose, Body Fluid 88 mg/dL; LDH, Body Fluid Source Pleural Fluid; T. Protein, Body Fluid Source Pleural Fluid; Total Protein, Body Fluid 2740 mg/dL
[2024-06-26 04:46] LABS: Appearance,BF Clear (Clear)
[2024-06-26 06:18] LABS: Glucose,Whole Blood 123 mg/dL (70-110)
[2024-06-26 08:14] LABS: African American GFR (CKD) 47 (>60 ml/min/1.73 sqM); Anion Gap 11 mmol/L; Blood Urea Nitrogen 32 mg/dL (7-17); Calcium 10.2 mg/dL (8.4-10.2); Carbon Dioxide 22 mmol/L (22-30); Chloride 115 mmol/L (98-107); Glucose 115 mg/dL (74-99); Non-African American GFR(CKD) 41 (>60 ml/min/1.73 sqM); Sodium 148 mmol/L (137-145)
[2024-06-26 09:13] LABS: Anisocytosis Moderate; Basophils % (A) 0 %; Eosinophils % (A) 0 %; HCT 33.9 % (34.0-46.0); HGB 9.9 gm/dL (11.4-16.0); Hypochromasia Marked; Lymphocytes # (A) 0.3 k/uL (1.0-4.8); Lymphocytes % (A) 1 %; MCH 32.9 pg (25.0-35.0); MCHC 29.1 g/dL (31.0-37.0); Mean Platelet Volume 8.3; Monocytes # (A) 0.6 k/uL (0-1.0); Monocytes % (A) 3 %; Neutrophils # (A) 21.5 k/uL (1.3-7.7); Neutrophils % (A) 96 %; Platelet Count 212 k/uL (150-450); Poikilocytosis Slight; RDW 20.3 % (11.5-15.5); WBC 22.4 k/uL (3.8-10.6)
[2024-06-26 09:21] LABS: Macrocytosis Marked
[2024-06-26] MEDS ORDERED: Potassium Replacement Protocol 1 EACH MISC MISCELLANE PRN (10:06)
--- NOTE | 2024-06-26 11:11 | US ---
EXAMINATION TYPE: US chest DATE OF EXAM: 06/25/2024 COMPARISON: XR 06/25/24 CLINICAL INDICATION: Female, 69 years old with history of SOB please gary for thoracentesis; right ef fusion TECHNIQUE: Grayscale imaging of the chest. Targeted ultrasound of the posterior lower right hemithor ax FINDINGS: EXAM MEASUREMENTS: Right Pleural Effusion pocket size: 9.6 cm Right skin surface to fluid distance: 1.7 cm Right side marked for possible thoracentesis outside the dept. Pulmonologists are able to review the images in the patient?s EMR. IMPRESSIONS: As above [facility], , 06/26/2024 11:09 AM
[2024-06-26 11:38] LABS: Glucose,Whole Blood 124 mg/dL (70-110)
[2024-06-26] MEDS: SODIUM CHLORIDE 0.45% 1,000 ML IV SCH (12:12)
[2024-06-26] MEDS: POTASSIUM CHLORIDE ER 20 MEQ TAB.ER PO ONE (12:12)
[2024-06-26] MEDS: POTASSIUM CHLORIDE ER 20 MEQ TAB.ER PO STA (12:12)
[2024-06-26] MEDS: LACTATED RINGERS 1,000 ML IV SCH (13:24)
--- NOTE | 2024-06-26 15:28 | P.PN ---
Subjective Progress Note Date: 06/26/24 Hospital Course: Patient is a 69-year-old female with history of lung cancer status post chemotherapy, A-fib not on anticoagulation, hyperlipidemia and hypertension presents to the ER with generalized weakness which started on Tuesday and got progressively worse over next 2 days. Patient has been following up with oncologist Dr. Cedillo at [facility]. 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 Patient has been getting chemotherapy. Most recent CAT scan of the lung on 05/22/2024 shows interval worsening of lung cancer and metastatic lung nodules. Patient has significant smoking history. She smoked almost a pack a day for close to 40 years. Currently smoking half pack a day. Patient is endorsing mild productive cough which she states is not worsening. Patient denies chest pain, shortness of breath, fever, chills, fall or head trauma, diarrhea constipation, numbness or tingling. Patient denies urgency, or urinary frequency. Initial lab work shows WBC 11.9, hemoglobin 9.4, hematocrit 29.8, MCV 106.6, sodium 134, potassium 2.8, chloride 95, bicarb 36, BUN 26, creatinine 1.38, lactic acid 1.3, calcium 16.1, ionized calcium 8.3, ALP 140, troponin I 0.021, PTH intact 2.6. Subsequent lab work on 06/23/2024 shows WBC 16.5, hemoglobin 10.4, MCV 108.9, platelet count 344, sodium 139, potassium 3.4, BUN 29, creatinine 1.16, calcium 13.7. Serology for influenza type A, type B, RSV and COVID-19 negative. Urinalysis shows high count of squamous epithelial cells indicating poor sample with trace hematuria and proteinuria and positive leukocyte esterase. Vital signs on arrival 97.6, pulse rate 61, respiratory 18, BP 162/74, oxygen saturation 97% on room air. Subsequent vital signs show temperature 98.4 F pulse rate 87, respiratory rate 18, blood pressure 107/87, oxygen saturation 93% on 2 L via nasal cannula Chest x-ray shows enlarging pulmonary masses concerning for progression of disease associated likely bilateral pleural effusion. Abdominal ultrasound shows no evidence for hydronephrosis or nephrolithiasis. Subjective: Patient seen and examined at bedside. Patient is off BiPAP and currently saturating at 97% at 50 L via high flow nasal cannula. No acute events overnight. Patient is reportedly feeling better. Patient had a thoracentesis yesterday with 1200 cc of exudative fluid was drained. Cytology is pending. Patient is already assessed by hospice this morning with a plan to sign onto hospice [facility] tomorrow a.m. All Systems reviewed and pertinent positives and negatives noted in HPI, all other symptoms are negative Objective: Vital signs reviewed. General: non toxic, no distress, appears older than stated age, ill-appearing and cachectic looking Derm: no unusual rashes/lesions, warm Head: atraumatic, normocephalic, symmetric Eyes: EOMI, no lid lag, anicteric sclera, pupils equal round reactive to light ENT: Nose and ears atraumatic Neck: No cervical lymphadenopathy, trachea midline, supple Mouth: no lip lesion, mucus membranes moist Cardiovascular: S1S2 reg, no murmur, positive dorsalis pedis pulse bilateral, no edema Lungs: Decreased breath sounds bilaterally, on high flow nasal cannula Abdominal: soft, nontender to palpation, no guarding Ext: muscle strength 5 out of 5 in all 4 extremities grossly, gross muscle atrophy noted in both upper and lower extremities. Neuro: CN II-XI grossly intact, no gross focal neuro deficits Psych: Alert, oriented, appropriate affect Data reviewed today: Labs: WBC 22.4, hemoglobin 9.9, sodium 148, potassium 3.0, BUN 32, creatinine 1.34 Images: No new imaging Assessment and Plan: #Generalized weakness secondary to hypercalcemia in the setting of lung cancer #History of metastatic non-small cell lung cancer with outpatient chemotherapy #Reactive leukocytosis secondary to malignancy versus infectious process #Suspected postobstructive pneumonia secondary to above, procalcitonin negative #Prerenal WILLIAM in the setting of hypercalcemia as above #Acute hypoxemic respiratory failure on high flow nasal cannula #Nicotine dependence #Right-sided pleural effusion status post thoracentesis with 1200 cc of exudative fluid, awaiting cytology Nephrology on board, appreciate recs Oncology on board, appreciate recs PT/OT on board Consult pulmonology and infectious disease Monitor CBC and BMP Urine culture positive for E. coli Blood culture report is negative Procalcitonin negative Continue IVPB Zosyn 3.375 g every 8 hour Continue to hold calcium and vitamin D supplements Hospice care has been consulted; will plan to sign onto hospice [facility] tomorrow a.m. #Non-anion gap metabolic acidosis, resolved #Hypokalemia, resolved #Hypernatremia Continue with potassium chloride 20 mEq p.o. twice daily Continue monitor BMP Free water deficit 2 L Start patient on IV 0.45 normal saline at 70 cc/h #Hyperglycemia Sliding scale insulin and Accu-Chek Monitor for hypoglycemia #Elevated ALP secondary to malignancy GGT 65 Continue to monitor Chronic: Hypertension: Resume diltiazem 120 mg Atrial fibrillation: Resume metoprolol succinate 50 mg once daily, flecainide 50 mg p.o. twice daily Hyperlipidemia: Resume Lipitor 10 mg p.o. daily DVT prophylaxis: Lovenox 40 mg subcu daily GI prophylaxis: IV Protonix 40 mg daily F: IV 0.45 normal saline at 70 cc/h E: Replete as needed N: Clear liquid diet A: Ambulatory at baseline The patient is admitted with an anticipated more than than 2 midnight stay for evaluation of generalized weakness, hypercalcemia, lung malignancy CODE STATUS: Full code Discussed with: Patient Anticipated discharge place: Hospice GIP Dictation was produced using [employer] dictation software. Please excuse any grammatical, word or spelling errors. Attestation I have seen and examined this patient with my resident , discussed the same with the resident/FAUSTINO, and agree with the dictator's assessment and plan as written GENERAL: The patient is alert and oriented x3, ill looking HEENT: Pupils are round and equally reacting to light. EOMI. No scleral icterus. No conjunctival pallor. Normocephalic, atraumatic. No pharyngeal erythema. No thyromegaly. CARDIOVASCULAR: S1 and S2 present. No murmurs, rubs, or gallops. PULMONARY coarse breath sounds bilaterally, expiratory rhonchi audible ABDOMEN: Soft, nontender, nondistended, normoactive bowel sounds. No palpable organomegaly. MUSCULOSKELETAL: No joint swelling or deformity. EXTREMITIES: No cyanosis, clubbing, or pedal edema. NEUROLOGICAL: Gross neurological examination did not reveal any focal deficits. SKIN: No rashes. Dr. Ignacio guadarrama Objective - Vital Signs Vital signs: Vital Signs Temp 98.1 F 06/26/24 12:00 Pulse 77 06/26/24 12:00 Resp 22 06/26/24 12:00 BP 157/73 06/26/24 12:00 Pulse Ox 95 06/26/24 12:00 FiO2 100 06/26/24 08:55 Intake & Output 06/25/24 06/26/24 06/26/24 18:59 06:59 18:59 Intake Total 570 20 Output Total 1100 750 350 Balance -1100 -180 -330 Weight 51.2 kg 51 kg Intake: IV 30 20 Invasive Line 1 20 10 Invasive Line 2 10 10 Oral 540 Output: Urine 1100 750 350 Other: Voiding Method Indwelling Catheter Indwelling Catheter Indwelling Catheter # Voids 2 - Labs CBC & Chem 7: 06/27/24 05:59 06/27/24 05:59 Labs: Abnormal Lab Results - Last 24 Hours (Table) 06/26/24 06/26/24 06/26/24 Range/Units 06:17 07:02 07:02 WBC 22.4 H (3.8-10.6) k/uL RBC 3.00 L (3.80-5.40) m/uL Hgb 9.9 L (11.4-16.0) gm/dL Hct 33.9 L (34.0-46.0) % MCV 113.0 H (80.0-100.0) fL MCHC 29.1 L (31.0-37.0) g/dL RDW 20.3 H (11.5-15.5) % Neutrophils # 21.5 H (1.3-7.7) k/uL Lymphocytes # 0.3 L (1.0-4.8) k/uL Macrocytosis Marked A Sodium 148 H (137-145) mmol/L Potassium 3.0 L (3.5-5.1) mmol/L Chloride 115 H (98-107) mmol/L BUN 32 H (7-17) mg/dL Creatinine 1.34 H (0.52-1.04) mg/dL Glucose 115 H (74-99) mg/dL POC Glucose (mg/dL) 123 H (70-110) mg/dL 06/26/24 Range/Units 11:36 WBC (3.8-10.6) k/uL RBC (3.80-5.40) m/uL Hgb (11.4-16.0) gm/dL Hct (34.0-46.0) % MCV (80.0-100.0) fL MCHC (31.0-37.0) g/dL RDW (11.5-15.5) % Neutrophils # (1.3-7.7) k/uL Lymphocytes # (1.0-4.8) k/uL Macrocytosis Sodium (137-145) mmol/L Potassium (3.5-5.1) mmol/L Chloride (98-107) mmol/L BUN (7-17) mg/dL Creatinine (0.52-1.04) mg/dL Glucose (74-99) mg/dL POC Glucose (mg/dL) 124 H (70-110) mg/dL Microbiology - Last 24 Hours (Table) 06/23/24 10:29 Blood Culture - Preliminary Blood
--- NOTE | 2024-06-26 15:38 | P.PN ---
Subjective Progress Note Date: 06/26/24 Principal diagnosis: Reason for follow-up is postobstructive pneumonia Patient is a 69-year-old female with a past medical history significant for atrial fibrillation diabetes mellitus hypertension hyperlipidemia non-small cell lung cancer presenting to the hospital for evaluation of weakness with respiratory distress abnormal x-ray concerning for possible postobstructive pneumonia prompting this consultation. On today's evaluation that is 06/26/2024, Patient is afebrile this morning patient is more awake and alert denies having any chest pain or worsening short ness of breath currently on high flow nasal cannula oxygen no nausea vomiting abdominal pain or diarrhea. Patient white count is 22.4 creatinine is 1.34 urine is growing E. coli blood cultures are pending Objective - Vital Signs Vital signs: Vital Signs Temp 98.1 F 06/26/24 12:00 Pulse 77 06/26/24 12:00 Resp 22 06/26/24 12:00 BP 157/73 06/26/24 12:00 Pulse Ox 95 06/26/24 15:22 FiO2 100 06/26/24 08:55 Intake & Output 06/25/24 06/26/24 06/26/24 18:59 06:59 18:59 Intake Total 570 20 Output Total 1100 750 350 Balance -1100 -180 -330 Weight 51.2 kg 51 kg Intake: IV 30 20 Invasive Line 1 20 10 Invasive Line 2 10 10 Oral 540 Output: Urine 1100 750 350 Other: Voiding Method Indwelling Catheter Indwelling Catheter Indwelling Catheter # Voids 2 - Exam GENERAL DESCRIPTION: An elderly female lying in bed in no distress RESPIRATORY SYSTEM: Unlabored breathing , decreased breath sounds at bases HEART: S1 S2 regular rate and rhythm , ABDOMEN: Soft , no tenderness EXTREMITIES: No edema feet - Labs CBC & Chem 7: 06/26/24 07:02 06/26/24 07:02 Labs: Abnormal Lab Results - Last 24 Hours (Table) 06/26/24 06/26/24 06/26/24 Range/Units 06:17 07:02 07:02 WBC 22.4 H (3.8-10.6) k/uL RBC 3.00 L (3.80-5.40) m/uL Hgb 9.9 L (11.4-16.0) gm/dL Hct 33.9 L (34.0-46.0) % MCV 113.0 H (80.0-100.0) fL MCHC 29.1 L (31.0-37.0) g/dL RDW 20.3 H (11.5-15.5) % Neutrophils # 21.5 H (1.3-7.7) k/uL Lymphocytes # 0.3 L (1.0-4.8) k/uL Macrocytosis Marked A Sodium 148 H (137-145) mmol/L Potassium 3.0 L (3.5-5.1) mmol/L Chloride 115 H (98-107) mmol/L BUN 32 H (7-17) mg/dL Creatinine 1.34 H (0.52-1.04) mg/dL Glucose 115 H (74-99) mg/dL POC Glucose (mg/dL) 123 H (70-110) mg/dL 06/26/24 Range/Units 11:36 WBC (3.8-10.6) k/uL RBC (3.80-5.40) m/uL Hgb (11.4-16.0) gm/dL Hct (34.0-46.0) % MCV (80.0-100.0) fL MCHC (31.0-37.0) g/dL RDW (11.5-15.5) % Neutrophils # (1.3-7.7) k/uL Lymphocytes # (1.0-4.8) k/uL Macrocytosis Sodium (137-145) mmol/L Potassium (3.5-5.1) mmol/L Chloride (98-107) mmol/L BUN (7-17) mg/dL Creatinine (0.52-1.04) mg/dL Glucose (74-99) mg/dL POC Glucose (mg/dL) 124 H (70-110) mg/dL Microbiology - Last 24 Hours (Table) 06/23/24 10:29 Blood Culture - Preliminary Blood Assessment and Plan (1) Postobstructive pneumonia Current Visit: Yes Status: Acute Code(s): J18.9 - PNEUMONIA, UNSPECIFIED ORGANISM SNOMED Code(s): 767775737 (2) Leukocytosis Current Visit: Yes Status: Acute Code(s): D72.829 - ELEVATED WHITE BLOOD CELL COUNT, UNSPECIFIED SNOMED Code(s): 918166775 Plan: 1patient with initially presented to hospital with weakness also have worsening of respiratory status requiring BiPAP chest x-ray with a worsening lung masses possible progression of her lung cancer and question of possible postobstructive pneumonia not entirely excluded 2-leukocytosis possible related to pneumonia which is trending down 3-t patient is current being treated with Zosyn to continue to monitor clinical course closely Dictation was produced using [employer] dictation software. please excuse any grammatical, word or spelling errors. Time with Patient: Less than 30
--- NOTE | 2024-06-26 15:49 | P.PN ---
Subjective Progress Note Date: 06/26/24 Principal diagnosis: Confusion, SOB. Metastatic NSCLC, WM In follow-up today patient's son is at the bedside. Pt cont on bipap, her resp status is not improved after 1200cc thoracentesis, she however more alert, she is asking and answering questions, she denies any pain, she denies resp distress, she is thirsty. Objective - Vital Signs Vital signs: Vital Signs Temp 98.1 F 06/26/24 12:00 Pulse 77 06/26/24 12:00 Resp 22 06/26/24 12:00 BP 157/73 06/26/24 12:00 Pulse Ox 95 06/26/24 15:22 FiO2 100 06/26/24 08:55 Intake & Output 06/25/24 06/26/24 06/26/24 18:59 06:59 18:59 Intake Total 570 20 Output Total 1100 750 350 Balance -1100 -180 -330 Weight 51.2 kg 51 kg Intake: IV 30 20 Invasive Line 1 20 10 Invasive Line 2 10 10 Oral 540 Output: Urine 1100 750 350 Other: Voiding Method Indwelling Catheter Indwelling Catheter Indwelling Catheter # Voids 2 - Constitutional General appearance: Present: cooperative, no acute distress, thin - EENT Eyes: Present: EOMI ENT: Present: hearing grossly normal - Respiratory Respiratory: bilateral: diminished - Cardiovascular Rhythm: regular - Peripheral edema leg Peripheral Edema: bilateral: None - Integumentary Integumentary: Present: pale - Neurologic Neurologic: Present: CNII-XII intact - Musculoskeletal Musculoskeletal: Present: generalized weakness - Psychiatric Psychiatric: Present: A&O x's 3, appropriate affect, intact judgment & insight - Labs CBC & Chem 7: 06/26/24 07:02 06/26/24 07:02 Labs: Abnormal Lab Results - Last 24 Hours (Table) 06/26/24 06/26/24 06/26/24 Range/Units 06:17 07:02 07:02 WBC 22.4 H (3.8-10.6) k/uL RBC 3.00 L (3.80-5.40) m/uL Hgb 9.9 L (11.4-16.0) gm/dL Hct 33.9 L (34.0-46.0) % MCV 113.0 H (80.0-100.0) fL MCHC 29.1 L (31.0-37.0) g/dL RDW 20.3 H (11.5-15.5) % Neutrophils # 21.5 H (1.3-7.7) k/uL Lymphocytes # 0.3 L (1.0-4.8) k/uL Macrocytosis Marked A Sodium 148 H (137-145) mmol/L Potassium 3.0 L (3.5-5.1) mmol/L Chloride 115 H (98-107) mmol/L BUN 32 H (7-17) mg/dL Creatinine 1.34 H (0.52-1.04) mg/dL Glucose 115 H (74-99) mg/dL POC Glucose (mg/dL) 123 H (70-110) mg/dL 06/26/24 Range/Units 11:36 WBC (3.8-10.6) k/uL RBC (3.80-5.40) m/uL Hgb (11.4-16.0) gm/dL Hct (34.0-46.0) % MCV (80.0-100.0) fL MCHC (31.0-37.0) g/dL RDW (11.5-15.5) % Neutrophils # (1.3-7.7) k/uL Lymphocytes # (1.0-4.8) k/uL Macrocytosis Sodium (137-145) mmol/L Potassium (3.5-5.1) mmol/L Chloride (98-107) mmol/L BUN (7-17) mg/dL Creatinine (0.52-1.04) mg/dL Glucose (74-99) mg/dL POC Glucose (mg/dL) 124 H (70-110) mg/dL Microbiology - Last 24 Hours (Table) 06/23/24 10:29 Blood Culture - Preliminary Blood Assessment and Plan (1) Hypercalcemia Current Visit: Yes Status: Acute Priority: High Code(s): E83.52 - HYPERCALCEMIA SNOMED Code(s): 30489084 (2) Non-small cell lung cancer (NSCLC) Current Visit: Yes Status: Acute Priority: High Code(s): C34.90 - MALIGNANT NEOPLASM OF UNSP PART OF UNSP BRONCHUS OR LUNG SNOMED Code(s): 627935725 Plan: Hypercalcemia -Ca++ 16.1 on admit. PTH low at 2.6. Most likely hypercalcemia of malignancy. Recent treatment f/u images did report disease progression -Calcitonin and Zometa x 1 given. Pt cont on IV fluids. Ca++ today 10.2. -Hold calcium supplementation. -Continue to monitor calcium levels WILLIAM -Nephrology following pt, Cr and GFR stable NSCLC -Oncology history as dictated in consult -Most recently treated with single agent Gemzar completing last cycle on 05/31/24. Unfortunately, CT chest showed disease progression, Gemzar was discontinued. -Plan was to start palliative treatment with chemo/VEGF inhibitor SOB -A-team called on pt yesterday for low O2 sats, placed on bipap, cont on bipap -Large right pleural effusion. Pulmonary has performed a 1200cc thoracentesis. Pt more alert but, resp status is mostly unchanged. Waldenstroms Macroglobulenemia -Diagnosed in 2014. -Previously on Ibrutinib, but it has been held due to treatment for her lung cancer -Hgb baseline 8-9 range Pt and family have had a meeting with hospice. They are waiting for several family members to come. It was discussed that hospice is a very reasonable choice in pt condition. Any further treatment would not likely afford pt relief of symptoms, reduce disease burden in any meaningful way or provide any quality or quantity of life. Did answer all of pt and son's questions to the best of my ability.
--- NOTE | 2024-06-26 16:01 | P.PN ---
Subjective Progress Note Date: 06/26/24 This is a 69-year-old female patient with a known history of 40-year pack per day ongoing smoking history, lung cancer status post chemotherapy. Her most recent CAT scan in May 2024 revealed interval worsening of the lung cancer and metastatic lung nodules. She presented to the emergency room back on June 22, 2024 for generalized weakness, unable to stand and poor appetite. Urine culture positive for E. coli. Blood culture revealed no growth. Initial chest x-ray showed enlarging pulmonary masses concerning for progression of disease and bilateral pleural effusions. Early this morning a rapid response team was called on her for increasing shortness of breath, O2 saturations 64% on 15 L nonrebreather. The patient was placed on BiPAP 12/5 and 100% with improvement. X-ray revealed a large right pleural effusion and we are consulted today for the same. Ultrasound of the chest did reveal significant right-sided pleural effusion and she did undergo a thoracentesis with 1.2 L of fluid removed this afternoon. Cytology pending. Her BiPAP settings have been decreased to 60% FiO2. She remains very weak. Barely able to swallow a drink of water. Her is at the bedside. The patient is seen today June 26, 2024 in follow-up on the selective care unit. She remains quite weak and debilitated. Her family is at the bedside. Is currently on 15 L high flow nasal cannula to maintain O2 saturation in the mid 90s. She is afebrile. Hemodynamically stable. She did undergo a right sided thoracentesis yesterday with 1.2 L of fluid removed. Cytology pending. White count 22.4. Hemoglobin 9.9. Platelets 212. Sodium 148. Potassium 3.0. Bicarb 22. BUN 32. Creatinine 1.34. Glucose 115. She remains on antibiotics in the form of Zosyn. Half-normal saline at 70 mL/h. Heparin for DVT prophylaxis. Objective - Vital Signs Vital signs: Vital Signs Temp 98.1 F 06/26/24 12:00 Pulse 77 06/26/24 12:00 Resp 22 06/26/24 12:00 BP 157/73 06/26/24 12:00 Pulse Ox 95 06/26/24 15:22 FiO2 100 06/26/24 08:55 Intake & Output 03/17/25 03/18/25 03/18/25 18:59 06:59 18:59 Intake Total 570 20 Output Total 1100 750 350 Balance -1100 -180 -330 Weight 51.2 kg 51 kg Intake: IV 30 20 Invasive Line 1 20 10 Invasive Line 2 10 10 Oral 540 Output: Urine 1100 750 350 Other: Voiding Method Indwelling Catheter Indwelling Catheter Indwelling Catheter # Voids 2 - Exam GENERAL EXAM: Alert, frail, weak 69-year-old female, on 15 L high flow nasal cannula. HEAD: Normocephalic. EYES: Normal reaction of pupils, equal size. NOSE: Clear with pink turbinates. THROAT: No erythema or exudates. NECK: No masses, no JVD. CHEST: No chest wall deformity. LUNGS: Equal air entry with crackles in the right lung base, diminished. CVS: S1 and S2 normal with no audible murmur, regular rhythm. ABDOMEN: No hepatosplenomegaly, normal bowel sounds, no guarding or rigidity. SPINE: No scoliosis or deformity SKIN: No rashes CENTRAL NERVOUS SYSTEM: No focal deficits, tone is normal in all 4 extremities. EXTREMITIES: There is no peripheral edema. No clubbing, no cyanosis. Peripheral pulses are intact. - Labs CBC & Chem 7: 06/26/24 07:02 06/26/24 07:02 Labs: Abnormal Lab Results - Last 24 Hours (Table) 06/26/24 06/26/24 06/26/24 Range/Units 06:17 07:02 07:02 WBC 22.4 H (3.8-10.6) k/uL RBC 3.00 L (3.80-5.40) m/uL Hgb 9.9 L (11.4-16.0) gm/dL Hct 33.9 L (34.0-46.0) % MCV 113.0 H (80.0-100.0) fL MCHC 29.1 L (31.0-37.0) g/dL RDW 20.3 H (11.5-15.5) % Neutrophils # 21.5 H (1.3-7.7) k/uL Lymphocytes # 0.3 L (1.0-4.8) k/uL Macrocytosis Marked A Sodium 148 H (137-145) mmol/L Potassium 3.0 L (3.5-5.1) mmol/L Chloride 115 H (98-107) mmol/L BUN 32 H (7-17) mg/dL Creatinine 1.34 H (0.52-1.04) mg/dL Glucose 115 H (74-99) mg/dL POC Glucose (mg/dL) 123 H (70-110) mg/dL 06/26/24 Range/Units 11:36 WBC (3.8-10.6) k/uL RBC (3.80-5.40) m/uL Hgb (11.4-16.0) gm/dL Hct (34.0-46.0) % MCV (80.0-100.0) fL MCHC (31.0-37.0) g/dL RDW (11.5-15.5) % Neutrophils # (1.3-7.7) k/uL Lymphocytes # (1.0-4.8) k/uL Macrocytosis Sodium (137-145) mmol/L Potassium (3.5-5.1) mmol/L Chloride (98-107) mmol/L BUN (7-17) mg/dL Creatinine (0.52-1.04) mg/dL Glucose (74-99) mg/dL POC Glucose (mg/dL) 124 H (70-110) mg/dL Microbiology - Last 24 Hours (Table) 06/23/24 10:29 Blood Culture - Preliminary Blood Assessment and Plan Assessment: Acute hypoxemic respiratory failure secondary to a large right sided pleural effusion requiring BiPAP support 12/5 and 100% FiO2 alternating with 15 L high flow nasal cannula Large right sided pleural effusion status post thoracentesis June 25, 2024 with 1.2 L of fluid removed. Cytology pending History of non-small cell lung cancer, squamous cell carcinoma, receiving chemotherapy in the outpatient setting. CT scan of the chest from May 2024 revealed progression of disease Urinary tract infection secondary to E. coli Generalized weakness secondary to hypercalcemia secondary to above Leukocytosis Anemia Acute kidney injury History of Waldenstrm's lymphoma Chronic and ongoing tobacco dependence History of atrial fibrillation Diabetes mellitus type 2 Hypertension Hyperlipidemia Plan: The patient was seen and evaluated Labs and medications reviewed Still requiring BiPAP support 12/5 and 60% FiO2 Alternating with 15 L high flow nasal cannula DNR CODE STATUS Family is at the bedside Awaiting for her sisters to arrive from out of state Plan is to be placed into hospice in a.m. I have personally seen and examined the patient, performed the documentation and the assessment and plan as written. Number of minutes spent on the visit: 10 Dictation was produced using [employer] dictation software. Please excuse any grammatical, word or spelling errors.
[2024-06-26 16:37] LABS: Glucose,Whole Blood 106 mg/dL (70-110)
--- NOTE | 2024-06-26 17:14 | P.PN ---
Subjective Patient is seen for follow-up for acute kidney injury and hypercalcemia. Serum creatinine at 1.3. Calcium has decreased to 10.2. Sodium was 148 Patient is currently maintained on BiPAP. Family present at bedside and there are plans for hospice care. Objective - Vital Signs Vital signs: Vital Signs Temp 97.4 F L 06/26/24 16:56 Pulse 82 06/26/24 16:56 Resp 24 06/26/24 16:56 BP 156/77 06/26/24 16:56 Pulse Ox 94 L 06/26/24 16:56 FiO2 100 06/26/24 08:55 Intake & Output 06/25/24 06/26/24 06/26/24 18:59 06:59 18:59 Intake Total 570 20 Output Total 1100 750 350 Balance -1100 -180 -330 Weight 51.2 kg 51 kg Intake: IV 30 20 Invasive Line 1 20 10 Invasive Line 2 10 10 Oral 540 Output: Urine 1100 750 350 Other: Voiding Method Indwelling Catheter Indwelling Catheter Indwelling Catheter # Voids 2 - Exam Patient is awake, on BiPAP Examination of the heart S1 and S2 Examination of the lungs bilateral breath sounds are heard Abdomen is soft nontender Examination of lower extremities shows no significant edema - Labs CBC & Chem 7: 06/26/24 07:02 06/26/24 07:02 Labs: Abnormal Lab Results - Last 24 Hours (Table) 06/26/24 06/26/24 06/26/24 Range/Units 06:17 07:02 07:02 WBC 22.4 H (3.8-10.6) k/uL RBC 3.00 L (3.80-5.40) m/uL Hgb 9.9 L (11.4-16.0) gm/dL Hct 33.9 L (34.0-46.0) % MCV 113.0 H (80.0-100.0) fL MCHC 29.1 L (31.0-37.0) g/dL RDW 20.3 H (11.5-15.5) % Neutrophils # 21.5 H (1.3-7.7) k/uL Lymphocytes # 0.3 L (1.0-4.8) k/uL Macrocytosis Marked A Sodium 148 H (137-145) mmol/L Potassium 3.0 L (3.5-5.1) mmol/L Chloride 115 H (98-107) mmol/L BUN 32 H (7-17) mg/dL Creatinine 1.34 H (0.52-1.04) mg/dL Glucose 115 H (74-99) mg/dL POC Glucose (mg/dL) 123 H (70-110) mg/dL 06/26/24 Range/Units 11:36 WBC (3.8-10.6) k/uL RBC (3.80-5.40) m/uL Hgb (11.4-16.0) gm/dL Hct (34.0-46.0) % MCV (80.0-100.0) fL MCHC (31.0-37.0) g/dL RDW (11.5-15.5) % Neutrophils # (1.3-7.7) k/uL Lymphocytes # (1.0-4.8) k/uL Macrocytosis Sodium (137-145) mmol/L Potassium (3.5-5.1) mmol/L Chloride (98-107) mmol/L BUN (7-17) mg/dL Creatinine (0.52-1.04) mg/dL Glucose (74-99) mg/dL POC Glucose (mg/dL) 124 H (70-110) mg/dL Microbiology - Last 24 Hours (Table) 06/25/24 14:00 Gram Stain - Preliminary Pleural Fluid Body Fluid Culture - Preliminary 06/23/24 10:29 Blood Culture - Preliminary Blood Assessment and Plan Assessment: 1. Acute kidney injury secondary to hypercalcemia induced ATN. Renal function stable with creatinine 1.29. No hydronephrosis noted on kidney ultrasound. 2. Hypercalcemia secondary to volume contraction, calcium supplementation. Also possibly from underlying malignancy. Trending down. PTH appropriately suppressed at 2.6. Vitamin D level 66.1. 3. Hypokalemia from hypercalcemia induced diuresis. Replaced. Better. 4. Non-small cell lung cancer with metastasis maintained on chemotherapy outpatient. Plan: Continue off of calcium supplements Change IV fluids to half-normal saline Agree with plans for hospice care.
[2024-06-26 20:03] LABS: Glucose,Whole Blood 92 mg/dL (70-110)
[2024-06-26] MEDS: hydrALAZINE HCL 20 MG/ML 1 ML VIAL IVP PRN (23:19)
[2024-06-27 06:12] LABS: Glucose,Whole Blood 117 mg/dL (70-110)
[2024-06-27 06:48] LABS: Anisocytosis Slight; Basophils % (A) 0 %; Eosinophils % (A) 0 %; HCT 32.6 % (34.0-46.0); HGB 9.9 gm/dL (11.4-16.0); Hypochromasia Marked; Lymphocytes # (A) 0.3 k/uL (1.0-4.8); Lymphocytes % (A) 1 %; MCH 34.6 pg (25.0-35.0); MCHC 30.5 g/dL (31.0-37.0); MCV 113.4 fL (80.0-100.0); Macrocytosis Marked; Mean Platelet Volume 7.6; Monocytes # (A) 0.5 k/uL (0-1.0); Monocytes % (A) 2 %; Neutrophils # (A) 21.3 k/uL (1.3-7.7); Neutrophils % (A) 96 %; Platelet Count 194 k/uL (150-450); Poikilocytosis Slight; RBC 2.88 m/uL (3.80-5.40); RDW 19.9 % (11.5-15.5); WBC 22.3 k/uL (3.8-10.6)
[2024-06-27 07:07] LABS: African American GFR (CKD) 63 (>60 ml/min/1.73 sqM); Anion Gap 12 mmol/L; Blood Urea Nitrogen 24 mg/dL (7-17); Calcium 9.6 mg/dL (8.4-10.2); Carbon Dioxide 20 mmol/L (22-30); Chloride 111 mmol/L (98-107); Glucose 106 mg/dL (74-99); Non-African American GFR(CKD) 54 (>60 ml/min/1.73 sqM); Potassium 3.4 mmol/L (3.5-5.1); Sodium 143 mmol/L (137-145)
--- NOTE | 2024-06-27 11:09 | P.PN ---
Subjective Patient is seen for follow-up for acute kidney injury and hypercalcemia. Serum creatinine at 1.0. Calcium has decreased to 9.6, sodium improved to 143 Off of BiPAP Family present at bedside and there are plans for hospice care. Objective - Vital Signs Vital signs: Vital Signs Temp 97.1 F L 06/27/24 08:04 Pulse 74 06/27/24 04:00 Resp 22 06/27/24 08:04 BP 150/70 06/27/24 08:04 Pulse Ox 94 L 06/27/24 08:04 FiO2 100 06/27/24 04:00 Intake & Output 06/26/24 06/27/24 06/27/24 18:59 06:59 18:59 Intake Total 20 10 Output Total 350 780 Balance -330 -770 Intake: IV 20 10 Invasive Line 1 10 Invasive Line 2 10 10 Output: Urine 350 780 Other: Voiding Method Indwelling Catheter Indwelling Catheter Indwelling Catheter # Bowel Movements 1 1 - Exam Patient is awake, on BiPAP Examination of the heart S1 and S2 Examination of the lungs bilateral breath sounds are heard Abdomen is soft nontender Examination of lower extremities shows no significant edema - Labs CBC & Chem 7: 06/27/24 05:59 06/27/24 05:59 Labs: Abnormal Lab Results - Last 24 Hours (Table) 06/26/24 06/27/24 06/27/24 Range/Units 11:36 05:59 05:59 WBC 22.3 H (3.8-10.6) k/uL RBC 2.88 L (3.80-5.40) m/uL Hgb 9.9 L (11.4-16.0) gm/dL Hct 32.6 L (34.0-46.0) % MCV 113.4 H (80.0-100.0) fL MCHC 30.5 L (31.0-37.0) g/dL RDW 19.9 H (11.5-15.5) % Neutrophils # 21.3 H (1.3-7.7) k/uL Lymphocytes # 0.3 L (1.0-4.8) k/uL Macrocytosis Marked A Potassium 3.4 L (3.5-5.1) mmol/L Chloride 111 H (98-107) mmol/L Carbon Dioxide 20 L (22-30) mmol/L BUN 24 H (7-17) mg/dL Creatinine 1.05 H (0.52-1.04) mg/dL Glucose 106 H (74-99) mg/dL POC Glucose (mg/dL) 124 H (70-110) mg/dL 06/27/24 Range/Units 06:10 WBC (3.8-10.6) k/uL RBC (3.80-5.40) m/uL Hgb (11.4-16.0) gm/dL Hct (34.0-46.0) % MCV (80.0-100.0) fL MCHC (31.0-37.0) g/dL RDW (11.5-15.5) % Neutrophils # (1.3-7.7) k/uL Lymphocytes # (1.0-4.8) k/uL Macrocytosis Potassium (3.5-5.1) mmol/L Chloride (98-107) mmol/L Carbon Dioxide (22-30) mmol/L BUN (7-17) mg/dL Creatinine (0.52-1.04) mg/dL Glucose (74-99) mg/dL POC Glucose (mg/dL) 117 H (70-110) mg/dL Microbiology - Last 24 Hours (Table) 06/25/24 14:00 Gram Stain - Preliminary Pleural Fluid Body Fluid Culture - Preliminary 06/23/24 10:29 Blood Culture - Preliminary Blood Assessment and Plan Assessment: 1. Acute kidney injury secondary to hypercalcemia induced ATN. Renal function improved with IV hydration. No hydronephrosis noted on kidney ultrasound. 2. Hypercalcemia secondary to volume contraction, calcium supplementation. Also possibly from underlying malignancy. Trending down. PTH appropriately suppressed at 2.6. Vitamin D level 66.1. 3. Hypokalemia from hypercalcemia induced diuresis. Replaced. Better. 4. Non-small cell lung cancer with metastasis maintained on chemotherapy outpatient. Plan: Continue off of calcium supplements Continue half-normal saline Agree with plans for hospice care.
--- NOTE | 2024-06-27 11:30 | P.DS ---
Providers Date of admission: 06/22/24 18:48 Attending physician: Morena Shepherd Consults: 06/22/24 18:45 Consult Physician Stat Consulting Provider: Thaddeus Hernandez Consult Reason/Comments: hypercalcemia Do you want consulting provider notified?: Yes Consult Physician Urgent Consulting Provider: Dennis Cedillo Consult Reason/Comments: hypercalcemia, lung ca Do you want consulting provider notified?: Yes 06/25/24 09:37 Consult Physician Urgent Consulting Provider: Werner Hendrix Consult Reason/Comments: right pleural effusion; Hx of Lung cancer Do you want consulting provider notified?: Yes 06/25/24 11:41 Consult Physician Urgent Consulting Provider: Yocasta Rousseau Consult Reason/Comments: postobstructive pneumonia Do you want consulting provider notified?: Yes 06/25/24 15:26 Consult Physician Routine Consulting Provider: Venu Purcell Consult Reason/Comments: overgrown, thick toenails, hard to put shows on, difficulty walking Do you want consulting provider notified?: Yes Primary care physician: Robert Vasquez MD Hospital Course: Discharge Diagnosis: #Generalized weakness secondary to hypercalcemia in the setting of lung cancer #History of metastatic non-small cell lung cancer with outpatient chemotherapy #Reactive leukocytosis secondary to malignancy versus infectious process #Suspected postobstructive pneumonia secondary to above, procalcitonin negative #Prerenal WILLIAM in the setting of hypercalcemia as above #Acute hypoxemic respiratory failure on high flow nasal cannula #Nicotine dependence #Right-sided pleural effusion status post thoracentesis with 1200 cc of ex udative fluid, awaiting cytology #Generalized weakness secondary to hypercalcemia in the setting of lung cancer #History of metastatic non-small cell lung cancer with outpatient chemotherapy #Reactive leukocytosis secondary to malignancy versus infectious process #Suspected postobstructive pneumonia secondary to above, procalcitonin negative #Prerenal WILLIAM in the setting of hypercalcemia as above #Acute hypoxemic respiratory failure on high flow nasal cannula #Nicotine dependence #Right-sided pleural effusion status post thoracentesis with 1200 cc of exudative fluid, awaiting cytology #Hyperglycemia #Elevated ALP secondary malignancy Hospital Course: Patient is a 69-year-old female with history of lung cancer status post chemotherapy, A-fib not on anticoagulation, hyperlipidemia and hypertension presents to the ER with generalized weakness which started on Tuesday and got progressively worse over next 2 days. Patient has been following up with oncologist Dr. Cedillo at [facility]. 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 Patient has been getting chemotherapy. Most recent CAT scan of the lung on 05/22/2024 shows interval worsening of lung cancer and metastatic lung nodules. Patient has significant smoking history. She smoked almost a pack a day for close to 40 years. Currently smoking half pack a day. Patient is endorsing mild productive cough which she states is not worsening. Patient denies chest pain, shortness of breath, fever, chills, fall or head trauma, diarrhea constipation, numbness or tingling. Patient denies urgency, or urinary frequency. Initial lab work shows WBC 11.9, hemoglobin 9.4, hematocrit 29.8, MCV 106.6, sodium 134, potassium 2.8, chloride 95, bicarb 36, BUN 26, creatinine 1.38, lactic acid 1.3, calcium 16.1, ionized calcium 8.3, ALP 140, troponin I 0.021, PTH intact 2.6. Subsequent lab work on 06/23/2024 shows WBC 16.5, hemoglobin 10.4, MCV 108.9, platelet count 344, sodium 139, potassium 3.4, BUN 29, creati nine 1.16, calcium 13.7. Serology for influenza type A, type B, RSV and COVID-19 negative. Urinalysis shows high count of squamous epithelial cells indicating poor sample with trace hematuria and proteinuria and positive leukocyte esterase. Vital signs on arrival 97.6, pulse rate 61, respiratory 18, BP 162/74, oxygen saturation 97% on room air. Subsequent vital signs show temperature 98.4 F pul se rate 87, respiratory rate 18, blood pressure 107/87, oxygen saturation 93% on 2 L via nasal cannula Chest x-ray shows enlarging pulmonary masses concerning for progression of disease associated likely bilateral pleural effusion. Abdominal ultrasound shows no evidence for hydronephrosis or nephrolithiasis. Nephrology, oncology, infectious disease and pulmonology are consulted for this patient. During this course of hospitalization patient continued to have respiratory distress and was eventually put on BiPAP. Repeat chest x-ray showed large right-sided pleural effusion. Pulmonology was consulted and thoracentesis was performed with 1200 cc of exudative fluid was drained and was sent for cytology. Decision was made with patient and her to transition her care to hospice. Case management was involved and patient to be signed onto hospice GIP. In the meantime, post-thoracentesis patient has showed some improvement in her breathing. Patient is off BiPAP and is currently on high flow oxygen. However her prognosis still remains poor. Patient also had her sister and rest of family come to see her and they agree with her decision to be on hospice care. Discharge disposition: Hospice GIP Vital signs reviewed. General: non toxic, no distress, appears older than stated age, ill-appearing and cachectic looking Derm: no unusual rashes/lesions, warm Head: atraumatic, normocephalic, symmetric Eyes: EOMI, no lid lag, anicteric sclera, pupils equal round reactive to light ENT: Nose and ears atraumatic Neck: No cervical lymphadenopathy, trachea midline, supple Mouth: no lip lesion, mucus membranes moist, Cardiovascular: S1S2 reg, no murmur, positive dorsalis pedis pulse bilateral, no edema Lungs: Decreased breath sounds bilaterally, on high flow nasal cannula Abdominal: soft, nontender to palpation, no guarding Ext: muscle strength 5 out of 5 in all 4 extremities grossly, gross muscle atrophy noted in both upper and lower extremities. Neuro: CN II-XI grossly intact, no gross focal neuro deficits Psych: Alert, oriented, appropriate affect Dictation was produced using [employer] dictation software. Please excuse any grammatical, word or spelling errors. Patient Condition at Discharge: Poor Plan - Discharge Summary Discharge Rx Participant: No New Discharge Prescriptions: No Action Atorvastatin [Lipitor] 10 mg PO DAILY Metoprolol Succinate (ER) [Toprol Xl] 50 mg PO DAILY Cholecalciferol [Vitamin D3 (25 Mcg = 1000 Iu)] 50 mcg PO DAILY dilTIAZem HCL [Cardizem CD] 120 mg PO DAILY Flecainide Acetate 50 mg PO BID Calcium Carbonate [Calcium] 600 mg PO DAILY Discharge Medication List Atorvastatin [Lipitor] 10 mg PO DAILY 08/03/22 [History] Cholecalciferol [Vitamin D3 (25 Mcg = 1000 Iu)] 50 mcg PO DAILY 08/03/22 [History] Metoprolol Succinate (ER) [Toprol Xl] 50 mg PO DAILY 08/03/22 [History] Flecainide Acetate 50 mg PO BID 09/15/23 [History] dilTIAZem HCL [Cardizem CD] 120 mg PO DAILY 09/15/23 [History] Calcium Carbonate [Calcium] 600 mg PO DAILY 06/22/24 [History] Follow up Appointment(s)/Referral(s): Robert Vasquez MD [Primary Care Provider] - 1-2 days [facility] [NON-STAFF] - 1 Week Discharge Disposition: - Preliminary Cause of Preliminary Cause of : Metastatic non-small cell lung cancer
[2024-06-27 11:36] LABS: Glucose,Whole Blood 92 mg/dL (70-110)
[2024-06-27 15:55] LABS: Albumin 3.61 g/dL (3.80-4.90); Gamma Globulin 3.12 g/dL (0.70-1.50)
[2024-06-27 16:55] LABS: Glucose,Whole Blood 91 mg/dL (70-110)
--- NOTE | 2024-06-27 17:12 | P.PN ---
Subjective Progress Note Date: 06/27/24 Principal diagnosis: Reason for follow-up is postobstructive pneumonia Patient is a 69-year-old female with a past medical history significant for atrial fibrillation diabetes mellitus hypertension hyperlipidemia non-small cell lung cancer presenting to the hospital for evaluation of weakness with respiratory distress abnormal x-ray concerning for possible postobstructive pneumonia prompting this consultation. On today's evaluation that is 06/27/2024,the patient denies any fever or any chills, patient is breathing slightly comfortably heart still requiring 15 L high flow nasal cannula oxygen denies any chest pain still have a cough and has been compliant sputum no abdominal pain no diarrhea. The patient white count is 22.3 creatinine 1.05 pleural fluid cultures currently pending blood culture for pending urine with an E. coli Objective - Vital Signs Vital signs: Vital Signs Temp 97.1 F L 06/27/24 08:04 Pulse 74 06/27/24 04:00 Resp 22 06/27/24 08:04 BP 150/70 06/27/24 08:04 Pulse Ox 94 L 06/27/24 08:04 FiO2 100 06/27/24 04:00 Intake & Output 06/26/24 06/27/24 06/27/24 18:59 06:59 18:59 Intake Total 20 10 Output Total 350 780 Balance -330 -770 Intake: IV 20 10 Invasive Line 1 10 Invasive Line 2 10 10 Output: Urine 350 780 Other: Voiding Method Indwelling Catheter Indwelling Catheter Indwelling Catheter # Bowel Movements 1 1 - Exam GENERAL DESCRIPTION: An elderly female lying in bed in no distress RESPIRATORY SYSTEM: Unlabored breathing , decreased breath sounds at bases HEART: S1 S2 regular rate and rhythm , ABDOMEN: Soft , no tenderness EXTREMITIES: No edema feet - Labs CBC & Chem 7: 06/27/24 05:59 06/27/24 05:59 Labs: Abnormal Lab Results - Last 24 Hours (Table) 06/26/24 06/27/24 06/27/24 Range/Units 11:36 05:59 05:59 WBC 22.3 H (3.8-10.6) k/uL RBC 2.88 L (3.80-5.40) m/uL Hgb 9.9 L (11.4-16.0) gm/dL Hct 32.6 L (34.0-46.0) % MCV 113.4 H (80.0-100.0) fL MCHC 30.5 L (31.0-37.0) g/dL RDW 19.9 H (11.5-15.5) % Neutrophils # 21.3 H (1.3-7.7) k/uL Lymphocytes # 0.3 L (1.0-4.8) k/uL Macrocytosis Marked A Potassium 3.4 L (3.5-5.1) mmol/L Chloride 111 H (98-107) mmol/L Carbon Dioxide 20 L (22-30) mmol/L BUN 24 H (7-17) mg/dL Creatinine 1.05 H (0.52-1.04) mg/dL Glucose 106 H (74-99) mg/dL POC Glucose (mg/dL) 124 H (70-110) mg/dL 06/27/24 Range/Units 06:10 WBC (3.8-10.6) k/uL RBC (3.80-5.40) m/uL Hgb (11.4-16.0) gm/dL Hct (34.0-46.0) % MCV (80.0-100.0) fL MCHC (31.0-37.0) g/dL RDW (11.5-15.5) % Neutrophils # (1.3-7.7) k/uL Lymphocytes # (1.0-4.8) k/uL Macrocytosis Potassium (3.5-5.1) mmol/L Chloride (98-107) mmol/L Carbon Dioxide (22-30) mmol/L BUN (7-17) mg/dL Creatinine (0.52-1.04) mg/dL Glucose (74-99) mg/dL POC Glucose (mg/dL) 117 H (70-110) mg/dL Microbiology - Last 24 Hours (Table) 06/25/24 14:00 Gram Stain - Preliminary Pleural Fluid Body Fluid Culture - Preliminary 06/23/24 10:29 Blood Culture - Preliminary Blood Assessment and Plan (1) Postobstructive pneumonia Current Visit: Yes Status: Acute Code(s): J18.9 - PNEUMONIA, UNSPECIFIED ORGANISM SNOMED Code(s): 226680130 (2) Leukocytosis Current Visit: Yes Status: Acute Code(s): D72.829 - ELEVATED WHITE BLOOD CELL COUNT, UNSPECIFIED SNOMED Code(s): 017397395 Plan: 1patient with initially presented to hospital with weakness also have worsening of respiratory status requiring BiPAP chest x-ray with a worsening lung masses possible progression of her lung cancer and question of possible postobstructive pneumonia not entirely excluded 2-positive urine culture with E. coli adequately treated with Zosyn 3-patient is currently on Zosyn however family is leaning toward hospice which may appropriate in that case antibiotics can be safely discontinued Dictation was produced using [employer] dictation software. please excuse any grammatical, word or spelling errors. Time with Patient: Less than 30
[2024-06-27] MEDS: POTASSIUM CHLORIDE ER 20 MEQ TAB.ER PO SCH (18:14)
[2024-06-27 19:54] LABS: Glucose,Whole Blood 111 mg/dL (70-110)
[2024-06-27 23:14] VITALS: RESP 22
[2024-06-28 04:47] VITALS: BP 156/74; PULSE 94; TEMP 97.9
--- NOTE | 2024-06-28 13:39 | P.DS ---
Providers Date of admission: 06/22/24 18:48 Attending physician: Morena Shepherd Consults: 06/22/24 18:45 Consult Physician Stat Consulting Provider: Thaddeus Hernandez Consult Reason/Comments: hypercalcemia Do you want consulting provider notified?: Yes Consult Physician Urgent Consulting Provider: Dennis Cedillo Consult Reason/Comments: hypercalcemia, lung ca Do you want consulting provider notified?: Yes 06/25/24 09:37 Consult Physician Urgent Consulting Provider: Werner Hendrix Consult Reason/Comments: right pleural effusion; Hx of Lung cancer Do you want consulting provider notified?: Yes 06/25/24 11:41 Consult Physician Urgent Consulting Provider: Yocasta Rousseau Consult Reason/Comments: postobstructive pneumonia Do you want consulting provider notified?: Yes 06/25/24 15:26 Consult Physician Routine Consulting Provider: Venu Purcell Consult Reason/Comments: overgrown, thick toenails, hard to put shows on, difficulty walking Do you want consulting provider notified?: Yes Primary care physician: Robert Vasquez MD Hospital Course: Discharge Diagnosis: #Generalized weakness secondary to hypercalcemia in the setting of lung cancer #History of metastatic non-small cell lung cancer with outpatient chemotherapy #Reactive leukocytosis secondary to malignancy versus infectious process #Suspected postobstructive pneumonia secondary to above, procalcitonin negative #Prerenal WILLIAM in the setting of hypercalcemia as above #Acute hypoxemic respiratory failure on high flow nasal cannula #Nicotine dependence #Right-sided pleural effusion status post thoracentesis with 1200 cc of ex udative fluid, awaiting cytology #Generalized weakness secondary to hypercalcemia in the setting of lung cancer #History of metastatic non-small cell lung cancer with outpatient chemotherapy #Reactive leukocytosis secondary to malignancy versus infectious process #Suspected postobstructive pneumonia secondary to above, procalcitonin negative #Prerenal WILLIAM in the setting of hypercalcemia as above #Acute hypoxemic respiratory failure on high flow nasal cannula #Nicotine dependence #Right-sided pleural effusion status post thoracentesis with 1200 cc of exudative fluid, awaiting cytology #Hyperglycemia #Elevated ALP secondary malignancy Hospital Course: Patient is a 69-year-old female with history of lung cancer status post chemotherapy, A-fib not on anticoagulation, hyperlipidemia and hypertension presents to the ER with generalized weakness which started on Tuesday and got progressively worse over next 2 days. Patient has been following up with oncologist Dr. Cedillo at [facility]. 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 Patient has been getting chemotherapy. Most recent CAT scan of the lung on 05/22/2024 shows interval worsening of lung cancer and metastatic lung nodules. Patient has significant smoking history. She smoked almost a pack a day for close to 40 years. Currently smoking half pack a day. Patient is endorsing mild productive cough which she states is not worsening. Patient denies chest pain, shortness of breath, fever, chills, fall or head trauma, diarrhea constipation, numbness or tingling. Patient denies urgency, or urinary frequency. Initial lab work shows WBC 11.9, hemoglobin 9.4, hematocrit 29.8, MCV 106.6, sodium 134, potassium 2.8, chloride 95, bicarb 36, BUN 26, creatinine 1.38, lactic acid 1.3, calcium 16.1, ionized calcium 8.3, ALP 140, troponin I 0.021, PTH intact 2.6. Subsequent lab work on 06/23/2024 shows WBC 16.5, hemoglobin 10.4, MCV 108.9, platelet count 344, sodium 139, potassium 3.4, BUN 29, creati nine 1.16, calcium 13.7. Serology for influenza type A, type B, RSV and COVID-19 negative. Urinalysis shows high count of squamous epithelial cells indicating poor sample with trace hematuria and proteinuria and positive leukocyte esterase. Vital signs on arrival 97.6, pulse rate 61, respiratory 18, BP 162/74, oxygen saturation 97% on room air. Subsequent vital signs show temperature 98.4 F pul se rate 87, respiratory rate 18, blood pressure 107/87, oxygen saturation 93% on 2 L via nasal cannula Chest x-ray shows enlarging pulmonary masses concerning for progression of disease associated likely bilateral pleural effusion. Abdominal ultrasound shows no evidence for hydronephrosis or nephrolithiasis. Nephrology, oncology, infectious disease and pulmonology are consulted for this patient. During this course of hospitalization patient continued to have respiratory distress and was eventually put on BiPAP. Repeat chest x-ray showed large right-sided pleural effusion. Pulmonology was consulted and thoracentesis was performed with 1200 cc of exudative fluid was drained and was sent for cytology. Decision was made with patient and her to transition her care to hospice. Case management was involved and patient to be signed onto hospice GIP. In the meantime, post-thoracentesis patient has showed some improvement in her breathing. Patient is off BiPAP and is currently on high flow oxygen. However her prognosis still remains poor. Patient also had her sister and rest of family come to see her and they agree with her decision to be on hospice care. Patient on 06/27/2024 at 6:15 PM. Dictation was produced using [employer] dictation software. Please excuse any grammatical, word or spelling errors. Patient Condition at Discharge: Poor Plan - Discharge Summary Discharge Rx Participant: No New Discharge Prescriptions: No Action Atorvastatin [Lipitor] 10 mg PO DAILY Metoprolol Succinate (ER) [Toprol Xl] 50 mg PO DAILY Cholecalciferol [Vitamin D3 (25 Mcg = 1000 Iu)] 50 mcg PO DAILY dilTIAZem HCL [Cardizem CD] 120 mg PO DAILY Flecainide Acetate 50 mg PO BID Calcium Carbonate [Calcium] 600 mg PO DAILY Discharge Medication List Atorvastatin [Lipitor] 10 mg PO DAILY 08/03/22 [History] Cholecalciferol [Vitamin D3 (25 Mcg = 1000 Iu)] 50 mcg PO DAILY 08/03/22 [History] Metoprolol Succinate (ER) [Toprol Xl] 50 mg PO DAILY 08/03/22 [History] Flecainide Acetate 50 mg PO BID 09/15/23 [History] dilTIAZem HCL [Cardizem CD] 120 mg PO DAILY 09/15/23 [History] Calcium Carbonate [Calcium] 600 mg PO DAILY 06/22/24 [History] Follow up Appointment(s)/Referral(s): Robert Vasquez MD [Primary Care Provider] - 1-2 days [facility] [NON-STAFF] - 1 Week Discharge Disposition: - Preliminary Cause of Preliminary Cause of : metastatic lung cancer
--- NOTE | 2024-06-28 13:44 | P.PN ---
Subjective Progress Note Date: 06/27/24 Hospital Course: Patient is a 69-year-old female with history of lung cancer status post chemotherapy, A-fib not on anticoagulation, hyperlipidemia and hypertension presents to the ER with generalized weakness which started on Tuesday and got progressively worse over next 2 days. Patient has been following up with oncologist Dr. Cedillo at [facility]. 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 Patient has been getting chemotherapy. Most recent CAT scan of the lung on 05/22/2024 shows interval worsening of lung cancer and metastatic lung nodules. Patient has significant smoking history. She smoked almost a pack a day for close to 40 years. Currently smoking half pack a day. Patient is endorsing mild productive cough which she states is not worsening. Patient denies chest pain, shortness of breath, fever, chills, fall or head trauma, diarrhea constipation, numbness or tingling. Patient denies urgency, or urinary frequency. Initial lab work shows WBC 11.9, hemoglobin 9.4, hematocrit 29.8, MCV 106.6, sodium 134, potassium 2.8, chloride 95, bicarb 36, BUN 26, creatinine 1.38, lactic acid 1.3, calcium 16.1, ionized calcium 8.3, ALP 140, troponin I 0.021, PTH intact 2.6. Subsequent lab work on 06/23/2024 shows WBC 16.5, hemoglobin 10.4, MCV 108.9, platelet count 344, sodium 139, potassium 3.4, BUN 29, creatinine 1.16, calcium 13.7. Serology for influenza type A, type B, RSV and COVID-19 negative. Urinalysis shows high count of squamous epithelial cells indicating poor sample with trace hematuria and proteinuria and positive leukocyte esterase. Vital signs on arrival 97.6, pulse rate 61, respiratory 18, BP 162/74, oxygen saturation 97% on room air. Subsequent vital signs show temperature 98.4 F pulse rate 87, respiratory rate 18, blood pressure 107/87, oxygen saturation 93% on 2 L via nasal cannula Chest x-ray shows enlarging pulmonary masses concerning for progression of disease associated likely bilateral pleural effusion. Abdominal ultrasound shows no evidence for hydronephrosis or nephrolithiasis. Nephrology, oncology, infectious disease and pulmonology are consulted for this patient. During this course of hospitalization patient continued to have respiratory distress and was eventually put on BiPAP. Repeat chest x-ray showed large right-sided pleural effusion. Pulmonology was consulted and thoracentesis was performed with 1200 cc of exudative fluid was drained and was sent for cytology. Decision was made with patient and her to transition her care to hospice. Case management was involved and patient to be signed onto hospice GIP. In the meantime, post-thoracentesis patient has showed some improvement in her breathing. Patient is off BiPAP and is currently on high flow oxygen. However her prognosis still remains poor. Patient also had her sister and rest of family come to see her and they agree with her decision to be on hospice care. Subjective: Patient seen and examined at bedside. Patient is off BiPAP and currently saturating at 97% at 15 L via high flow nasal cannula. No acute events over night. Patient is reportedly feeling better. Hospice GIP today. All Systems reviewed and pertinent positives and negatives noted in HPI, all other symptoms are negative Objective: Vital signs reviewed. General: non toxic, no distress, appears older than stated age, ill-appearing and cachectic looking Derm: no unusual rashes/lesions, warm Head: atraumatic, normocephalic, symmetric Eyes: EOMI, no lid lag, anicteric sclera, pupils equal round reactive to light ENT: Nose and ears atraumatic Neck: No cervical lymphadenopathy, trachea midline, supple Mouth: no lip lesion, mucus membranes moist Cardiovascular: S1S2 reg, no murmur, positive dorsalis pedis pulse bilateral, no edema Lungs: Decreased breath sounds bilaterally, on high flow nasal cannula Abdominal: soft, nontender to palpation, no guarding Ext: muscle strength 5 out of 5 in all 4 extremities grossly, gross muscle atrophy noted in both upper and lower extremities. Neuro: CN II-XI grossly intact, no gross focal neuro deficits Psych: Alert, oriented, appropriate affect Data reviewed today: Labs: WBC 22.4, hemoglobin 9.9, sodium 143, potassium 3.4, BUN 24, creatinine 1.05 Images: No new imaging Assessment and Plan: #Generalized weakness secondary to hypercalcemia in the setting of lung cancer #History of metastatic non-small cell lung cancer with outpatient chemotherapy #Reactive leukocytosis secondary to malignancy versus infectious process #Suspected postobstructive pneumonia secondary to above, procalcitonin negative #Prerenal WILLIAM in the setting of hypercalcemia as above #Acute hypoxemic respiratory failure on high flow nasal cannula #Nicotine dependence #Right-sided pleural effusion status post thoracentesis with 1200 cc of exudative fluid, awaiting cytology Nephrology on board, appreciate recs Oncology on board, appreciate recs PT/OT on board pulmonology and infectious disease on board Monitor CBC and BMP Urine culture positive for E. coli Blood culture report is negative Procalcitonin negative Continue IVPB Zosyn 3.375 g every 8 hour Continue to hold calcium and vitamin D supplements Hospice care has been consulted #Non-anion gap metabolic acidosis, resolved #Hypokalemia, resolved #Hypernatremia Continue with potassium chloride 20 mEq p.o. twice daily Continue monitor BMP Free water deficit 2 L Start patient on IV 0.45 normal saline at 70 cc/h #Hyperglycemia Sliding scale insulin and Accu-Chek Monitor for hypoglycemia #Elevated ALP secondary to malignancy GGT 65 Continue to monitor Chronic: Hypertension: Resume diltiazem 120 mg Atrial fibrillation: Resume metoprolol succinate 50 mg once daily, flecainide 50 mg p.o. twice daily Hyperlipidemia: Resume Lipitor 10 mg p.o. daily DVT prophylaxis: Lovenox 40 mg subcu daily GI prophylaxis: IV Protonix 40 mg daily F: IV 0.45 normal saline at 70 cc/h E: Replete as needed N: Clear liquid diet A: Ambulatory at baseline The patient is admitted with an anticipated more than than 2 midnight stay for evaluation of generalized weakness, hypercalcemia, lung malignancy CODE STATUS: Full code Discussed with: Patient Anticipated discharge place: Hospice GIP Dictation was produced using [employer] dictation software. Please excuse any g rammatical, word or spelling errors. Attestation I have seen and examined this patient with my resident , discussed the same with the resident/FAUSTINO, and agree with the dictator's assessment and plan as written Dr. Ignacio guadarrama Objective - Vital Signs Vital signs: Vital Signs Temp 97.9 F 06/28/24 04:00 Pulse 94 06/28/24 04:00 Resp 22 06/28/24 04:00 BP 156/74 06/28/24 04:00 Pulse Ox 95 06/28/24 04:00 FiO2 85 06/28/24 03:29 Intake & Output 06/27/24 06/28/24 06/28/24 18:59 06:59 18:59 Intake Total 250 10 Output Total 550 200 Balance -300 -190 Intake: IV 10 10 Invasive Line 3 10 10 Oral 240 Output: Urine 550 200 Other: Voiding Method Indwelling Catheter Indwelling Catheter # Voids 1 # Bowel Movements 1 - Labs CBC & Chem 7: 06/27/24 05:59 06/27/24 05:59 Labs: Abnormal Lab Results - Last 24 Hours (Table) 06/23/24 06/27/24 Range/Units 10:29 19:52 POC Glucose (mg/dL) 111 H (70-110) mg/dL Albumin (PEP) 3.61 L (3.80-4.90) g/dL [id number] 0.58 H (0.10-0.40) g/dL Gamma Globulins 3.12 H (0.70-1.50) g/dL Microbiology - Last 24 Hours (Table) 06/25/24 14:00 Gram Stain - Preliminary Pleural Fluid Body Fluid Culture - Preliminary 06/23/24 10:29 Blood Culture - Preliminary Blood
--- NOTE | 2024-07-02 11:25 | CDI ---
Documentation Clarification Form Date: 07/02/2024 11:09:49 AM From: Anuradha Allen RN, CCDS Email: [email or web address] Admit Date: 06/22/2024 06:48:00 PM Patient Name: Erlinda Costa Visit Number: [id number] Discharge Date: 06/28/2024 09:16:00 AM ATTENTION: The Clinical Documentation Specialists (CDI) and [facility] Coding Staff appreciate your assistance in clarifying documentation. Please respond to the clarification below the line at the bottom and electronically sign. The CDI & [facility] Coding staff will review the response and follow-up if needed. Please note: Queries are made part of the Legal Health Record. If you have any questions, please contact the author of this message via ITS. Doctor Morena Shepherd The Registered Dietitian assessment on 06/25 indicates this patient is underweight with a BMI of 17.6. Based on this information and the findings below, is there an additional diagnosis that is clinically appropriate for this patient? History/Risk Factors: lung cancer, s/p chemotherapy, A fib, HTN and HLD. Presents with generalized weakness and mild productive cough. Admitted with hypercalcemia and pleural effusion. Clinical Indicators: 06/23 H&P: "appears older than stated age, ill-appearing and cachectic looking." Current BMI: 17.6 Weight: 51.2kg Height: 5 ft 7 in 06/25 Consult Assessment: Poor po intake. Unable to take Bipap off. Stage II pressure injury to coccyx. Underweight. Increased nutrient needs related to increased metabolic demand for wound healing. Treatment: General healthful diet, monitor po intake, monitor supplement intake, meet 75% of estimated nutritional needs. Supplements: Ensure Enlive TID Is there an additional diagnosis that is clinically appropriate for this patient? [ ] Mild Protein-Calorie Malnutrition [ ] Moderate Protein-Calorie Malnutrition [ x ] Severe Protein-Calorie Malnutrition [ ] No additional diagnosis/Not clinically significant [ ] Other condition, please specify [ ] Unable to Determine MTDD
--- NOTE | 2024-07-02 12:44 | CDI ---
Documentation Clarification Form Date: 07/02/2024 11:29:41 AM From: Anuradha Allen RN, CCDS Email: [email or web address] Admit Date: 06/22/2024 06:48:00 PM Patient Name: Erlinda Costa Visit Number: [id number] Discharge Date: 06/28/2024 09:16:00 AM ATTENTION: The Clinical Documentation Specialists (CDI) and [facility] Coding Staff appreciate your assistance in clarifying documentation. Please respond to the clarification below the line at the bottom and electronically sign. The CDI & [facility] Coding staff will review the response and follow-up if needed. Please note: Queries are made part of the Legal Health Record. If you have any questions, please contact the author of this message via ITS. Doctor Morena Shepherd A stage 2 pressure injury present on admission is documented by the RN on 06/23. Based on this information and the findings below, is there an additional diagnosis that is clinically appropriate for this patient? History/Risk Factors: lung cancer, s/p chemotherapy, A fib, HTN and HLD. Presents with generalized weakness and mild productive cough. Admitted with hypercalcemia and pleural effusion. Clinical Indicators: 06/23 H&P: "appears older than stated age, ill-appearing and cachectic looking." Current BMI: 17.6 Weight: 51.2kg Height: 5 ft 7 in 06/25 Consult Assessment: "Poor po intake. Unable to take Bipap off. Stage II pressure injury to coccyx. Underweight. Increased nutrient needs related to increased metabolic demand for wound healing." 06/23 Wound description: "stage 2 pressure ulcer. Location: coccyx." Treatment: Optifoam applied, General healthful diet, monitor po intake, monitor supplement intake, meet 75% of estimated nutritional needs Supplements: Ensure enlive TID Do you agree with the Nursing assessment above? [x ] Yes, Coccyx Pressure Ulcer Stage 2 POA [ ] No, please specify [ ] Other condition, please specify [ ] Unable to determine Clinical Definitions: Stage 1 Pressure Ulcer: intact skin, non-blanching redness of local area Stage 2 Pressure Ulcer: Partial thickness, loss of dermis, pink wound bed Stage 3 Pressure Ulcer: Full thickness tissue loss Stage 4 Pressure Ulcer: Full thickness tissue loss with exposed bone, tendon, or muscle. Unstageable pressure ulcer: Full thickness tissue loss in which the base of the ulcer is covered by slough (yellow, acosta, peña, green or brown) and/or eschar (acosta, brown or black) in the wound bed. MTDD
== END 2024-06-28 09:16 | disposition expired | DRG 640 ==
LOC: EC 15:00 → 3SCARD 18:48
PROVIDERS: ADMIT Hospitalist; ATTEND Hospitalist
PROC: 0W993ZZ Drainage of Right Pleural Cavity, Percutaneous Approach (ICD-10-PCS; principal; 2024-06-25)
PROC: 5A09457 Assistance with Respiratory Ventilation, 24-96 Consecutive Hours, Continuous Positive Airway Pressure (ICD-10-PCS; 2024-06-25)
PROC: 5A0935A Assistance with Respiratory Ventilation, Less than 24 Consecutive Hours, High Flow/Velocity Cannula (ICD-10-PCS; 2024-06-28)
DX: E83.52 Hypercalcemia (principal); E43 Unspecified severe protein-calorie malnutrition; J18.9 Pneumonia, unspecified organism; J96.01 Acute respiratory failure with hypoxia; N17.0 Acute kidney failure with tubular necrosis; L89.152 Pressure ulcer of sacral region, stage 2; Z51.5 Encounter for palliative care; C34.90 Malignant neoplasm of unspecified part of unspecified bronchus or lung; J90 Pleural effusion, not elsewhere classified; C88.00 Waldenstrom macroglobulinemia not having achieved remission; E11.65 Type 2 diabetes mellitus with hyperglycemia; I10 Essential (primary) hypertension; D64.9 Anemia, unspecified; E87.20 Acidosis, unspecified; E87.0 Hyperosmolality and hypernatremia; N39.0 Urinary tract infection, site not specified; Z68.1 Body mass index [BMI] 19.9 or less, adult; I48.91 Unspecified atrial fibrillation; Z66 Do not resuscitate; Z11.52 Encounter for screening for COVID-19; B96.20 Unspecified Escherichia coli [E. coli] as the cause of diseases classified elsewhere; E87.6 Hypokalemia; E78.5 Hyperlipidemia, unspecified; F17.210 Nicotine dependence, cigarettes, uncomplicated; F41.9 Anxiety disorder, unspecified; E83.42 Hypomagnesemia; Z79.84 Long term (current) use of oral hypoglycemic drugs; Z79.899 Other long term (current) drug therapy; Z82.49 Family history of ischemic heart disease and other diseases of the circulatory system; Z85.118 Personal history of other malignant neoplasm of bronchus and lung; Z85.72 Personal history of non-Hodgkin lymphomas; Z92.21 Personal history of antineoplastic chemotherapy
CPT/HCPCS: 36415; 71045; 71046; 76604; 76770; 80048; 80053; 81001; 82306; 82330; 82465; 82652; 82945; 82977; 83036; 83605; 83615; 83735; 83970; 84100; 84132; 84145; 84157; 84165; 84484; 85025; 85610; 85730; 86334; 87040; 87070; 87077; 87086; 87186; 87205; 87449; 87636; 88108; 88305; 88341; 88342; 89050; 93005; 94660; 94760; 96361; 96365; 96372; 96375; 99291